=== PATIENT | female | born 1950 | race Caucasian/White ===

== ENCOUNTER 2017-12-30 17:12 | Emergency (ER) | payer MEDICARE, SELFPAY ==
[2017-12-30 17:13] VITALS: BP 168/84; PULSE 120; RESP 20; TEMP 37; O2SAT 99; BMI 25.7
[2017-12-30 18:01] LABS: Basophils % 0.4 % (0.1-2.0); Eosinophils # 0.4 K/mm3 (0.0-0.4); Eosinophils % 4.2 % (0.1-12.0); Hematocrit 34.8 % (37.0-47.0); Hemoglobin 10.6 g/dL (12.2-16.2); Lymphocytes # 2.9 K/mm3 (0.7-4.5); Mean Corpuscular HGB Conc 30.4 g/dL (31.8-35.4); Mean Corpuscular Volume 92.2 fl (81-99); Mean Platelet Volume 8.4 fl (7.4-10.4); Monocytes # 0.8 K/mm3 (0.1-1.0); Monocytes % 7.5 % (1.7-9.3); Neutrophils # 6.2 K/mm3 (1.8-7.8); Neutrophils % 59.8 % (37.0-80.0); Platelet Count 323 K/mm3 (142-424); Red Blood Count 3.78 M/mm3 (4.20-5.40); Red Cell Distribution Width 14.5 % (11.5-17.5); White Blood Count 10.4 K/mm3 (4.8-10.8)
[2017-12-30 18:02] LABS: Activated Partial Thrombo Time 23.9 seconds (23.6-34.0); INR 0.97 (0.9-1.1); Prothrombin Time 10.5 seconds (9.4-11.8)
[2017-12-30 18:13] VITALS: BP 149/80; PULSE 118; RESP 18; TEMP 36.9; O2SAT 98
[2017-12-30 18:44] LABS: Alanine Aminotransferase 44 U/L (12-78); Albumin Level 2.8 gm/dL (3.4-5.0); Albumin/Globulin Ratio 0.7 (1.1-1.8); Alkaline Phosphatase 236 U/L (46-116); Anion Gap 15.2 mEq/L (5-15); Aspartate Amino Transferase 39 U/L (15-37); Bilirubin,Total 0.4 mg/dL (0.2-1.0); Blood Urea Nitrogen 34 mg/dL (7-18); CKMB Relative Index 6.1 U/L (0-4.0); Calcium 8.7 mg/dL (8.5-10.1); Carbon Dioxide 23 mmol/L (21.0-32.0); Chloride 102 mmol/L (98-107); Creatine Kinase 367 U/L (26-192); Creatinine Clearance Estimated 46 mL/min (0-300); Creatinine,Serum 1.27 mg/dL (0.55-1.02); Estimated Glomerular Filt Rate 42 ml/min (>60); GFR (African American) 51 ML/MIN (>60); Globulin 3.9 gm/dl (1.3-3.2); Glucose 294 mg/dL (74-106); Potassium 4.2 mmoL/L (3.5-5.1); Sodium 136 mmol/L (136-145); Total Protein,Serum 6.7 gm/dL (6.4-8.2); Troponin I < 0.02 ng/ml (0.00-0.06)
[2017-12-30 18:45] LABS: Creatine Kinase MB 22.4 ng/ml (0.0-3.6)
[2017-12-30 19:18] VITALS: BP 166/78; PULSE 106; RESP 18; TEMP 37.1; O2SAT 99
--- NOTE | 2017-12-30 19:28 | HMH.EDARPALP ---
ED Disposition Clinical Impression: PSVT (paroxysmal supraventricular tachycardia), Dehydration Rhabdomyolysis Qualifiers: Rhabdomyolysis type: non-traumatic Qualified Code(s): M62.82 - Rhabdomyolysis Anemia Qualifiers: Anemia type: unspecified type Qualified Code(s): D64.9 - Anemia, unspecified Disposition: Home, Self-Care Condition on Discharge: Good Instructions: Paroxysmal Supraventricular Tachycardia, DI for Dehydration -- Adult Additional Instructions: Please follow-up with Dr. Gallagher or Dr. Cazares within the next 2 days. Please continue all your current medication at this time. Referrals: Davian Sawyer MD [Primary Care Provider] - Time of Disposition: 19:29 - Critical Care Critical Care Time: No Attestation: On 12/30/17, the high probability of a clinically significant, sudden or life threatening deterioration of the following system(s) required my full and direct attention, intervention and personal management. The time I documented below is in addition to time spent performing reported procedures but includes the following listed in this critical care notation. Medical Decision Making - Medical Records Medical records reviewed: Yes: I reviewed the patient's medical records. - Kiet Inquiry Pt receiving controlled substance: No Vital Signs: 12/30/17 17:13 12/30/17 18:13 12/30/17 19:18 Temperature 98.6 F 98.5 F 98.7 F Temperature Source Oral Oral Oral Pulse Rate Pulse Rate [Right Radial] 120 H 118 H 106 H Respiratory Rate 20 18 18 Blood Pressure Blood Pressure [Right Arm] 168/84 149/80 166/78 Blood Pressure Mean [Right Arm] 112 103 107 Blood Pressure Source [Right Arm] Manual Cuff/ Palpation Automatic Cuff Automatic Cuff Blood Pressure Position Blood Pressure Position [Right Arm] Sitting Supine Sitting 02 Sat by Pulse Oximetry 99 98 99 Oxygen Delivery Method Room Air Room Air Room Air 12/30/17 20:00 12/30/17 21:34 Temperature 98.1 F 98.7 F Temperature Source Oral Oral Pulse Rate 98 H Pulse Rate [Right Radial] 100 H Respiratory Rate 20 20 Blood Pressure 178/82 Blood Pressure [Right Arm] 179/89 Blood Pressure Mean [Right Arm] 119 Blood Pressure Source [Right Arm] Blood Pressure Position Sitting Blood Pressure Position [Right Arm] Sitting 02 Sat by Pulse Oximetry 99 Oxygen Delivery Method Room Air - Lab Data Lab results reviewed: Yes: I reviewed the patient's lab results. Lab Results 12/30/17 17:00: WBC 10.4, RBC 3.78 L, Hgb 10.6 L, Hct 34.8 L, MCV 92.2, MCH 28.0, MCHC 30.4 L, RDW 14.5, Plt Count 323, MPV 8.4, Neut % (Auto) 59.8, Lymph % (Auto) 28.0, [place] % (Auto) 7.5, Eos % (Auto) 4.2, Baso % (Auto) 0.4, Neut # (Auto) 6.2, Lymph # (Auto) 2.9, [place] # (Auto) 0.8, Eos # (Auto) 0.4, Baso # (Auto) 0.0 12/30/17 17:00: PT 10.5, INR 0.97, APTT 23.9 12/30/17 17:00: Sodium 136, Potassium 4.2, Chloride 102, Carbon Dioxide 23, Anion Gap 15.2 H, BUN 34 H, Creatinine 1.27 H, Estimated Creat Clear 46, Estimated GFR 42 L, Est GFR ( Amer) 51 L, Glucose 294 H, Calcium 8.7, Total Bilirubin 0.4, AST 39 H, ALT 44, Alkaline Phosphatase 236 H, Total Creatine Kinase 367 H, CK-MB (CK-2) 22.4 H*, CK-MB (CK-2) Rel Index 6.1 H, Troponin I < 0.02, Total Protein 6.7, Albumin 2.8 L, Globulin 3.9 H, Albumin/Globulin Ratio 0.7 L Result diagrams: 12/30/17 17:00 12/30/17 17:00 Orders (Tests/Meds): ED MEDICATIONS Discontinued Medications Generic Name Dose Route Start Last Admin Trade Name Freq PRN Reason Stop Dose Admin Sodium Chloride 1,000 mls @ 999 mls/hr 12/30/17 19:45 12/30/17 19:37 Sod Chlor 0.9% 1000ml Bag IV 12/30/17 20:45 999 mls/hr .Q1H1M SKYLAR Administration - Radiology Data #1 Image(s): Chest Image Reviewed: Yes I reviewed the patient's radiology results, Yes I reviewed the patient's radiology image, Yes I have reviewed radiologist's interpretation Preliminary Findings: Normal/NAD - ECG Data Tracing #1 I reviewed this ECG an
--- NOTE | 2017-12-30 19:59 | PC.NURSE ---
report to yaniv, receiving nurse at [facility] for transfer back to facility. [facility] made aware of transfer and will be arriving soon.
[2017-12-30 20:00] VITALS: BP 179/89; PULSE 100; RESP 20; TEMP 36.7; O2SAT 99
[2017-12-30 21:34] VITALS: BP 178/82; PULSE 98; RESP 20; TEMP 37.1; O2SAT 99
== END 2017-12-30 21:34 | disposition home or self-care (01) ==
PROVIDERS: Emergency Provider Emergency Medicine; PCP Internal Medicine Adolescent Medicine
DX: I47.1 Supraventricular tachycardia (principal); E86.0 Dehydration; M62.82 Rhabdomyolysis; D64.9 Anemia, unspecified; E11.65 Type 2 diabetes mellitus with hyperglycemia; Z79.4 Long term (current) use of insulin; Z79.84 Long term (current) use of oral hypoglycemic drugs; I10 Essential (primary) hypertension; Z79.899 Other long term (current) drug therapy
CPT/HCPCS: 80053; 82550; 82553; 84484; 85025; 85610; 85730; 93005; 96365; 99283

== ENCOUNTER → 2018-01-24 13:24 | Outpatient (CLI) | payer MEDICARE, SELFPAY ==
--- NOTE | 2018-01-24 13:28 | CA_ITS ---
PROCEDURE: 2-D M-mode and color Doppler study INDICATIONS FOR THE TEST: Chest pain COPD Heart Murmur Tobacco Smoking Palpitations Fatigue Syncope EdemaX HypertensionXDiabetes MellitusX Rheumatic Fever SOB LIPSCOMB Obesity HyperlipidemiaX Family History HD Additional History SVT PATIENT INFORMATION HEIGHT: 64 WEIGHT:148 GENDER: Female B/P:189/84 2-D/M-MODE INTERPRETATION: 2-D MEASUREMENTS OBSERVED VALUES IN CMS Right Ventricular Dimension (RVDd) 1.6 Interventricular Septum (Thickness)(IVsd) .7 Left Ventricular Internal Dimensions(LVIDd) 5.7 Left Ventricular Posterior Wall (Thickness)(LVPWd) .8 Aortic Root 2.5 Aortic Cusp Separation 1.6 Left Atrial Dimensions (LAD) 2.5 2D 1. Left atrium is qualitatively mildly enlarged, left ventricle is normal size, there is mild qualitative concentric left ventricular hypertrophy, visually estimated ejection fraction 55% with no obvious regional wall motion abnormality. 2. The right atrium and right ventricle are normal size and contractility. 3. The aortic valve is minimally thickened and fibrosed. 4. The mitral and tricuspid valve are grossly normal. 5. The pulmonic valve is poorly. 6. Trivial pericardial effusion noted. DOPPLER INTERROGATION: Doppler interrogation of the aortic, mitral and tricuspid valvular presence of mild mitral and tricuspid regurgitation, tricuspid and jet velocity insufficient for calculation of the right ventricular systolic pressure, grade 1 diastolic dysfunction seen with tissue Doppler evidence of raised left atrial pressure. CONCLUSION: 1. Mildly enlarged left atrium, normal left ventricular size, mild concentric left ventricular hypertrophy, visually estimated ejection fraction 55% with no obvious regional wall motion abnormality, grade 1 diastolic dysfunction seen with tissue Doppler evidence of raised left atrial pressure. 2. Mild mitral and tricuspid regurgitation 3. Trivial pericardial effusion noted.
== END ==
PROVIDERS: PCP Internal Medicine Adolescent Medicine; Visit Provider Internal Medicine
DX: I47.1 Supraventricular tachycardia (principal)
CPT/HCPCS: 93306

== ENCOUNTER 2018-04-18 14:00 | Outpatient (RCR) | payer MEDICARE, SELFPAY | END 2018-04-18 14:01 | disposition home or self-care (01) | LOC: PT 14:00 | PROVIDERS: PCP Internal Medicine Adolescent Medicine; Visit Provider Internal Medicine Adolescent Medicine | DX: S72.90XA Unspecified fracture of unspecified femur, initial encounter for closed fracture (principal); S82.143A Displaced bicondylar fracture of unspecified tibia, initial encounter for closed fracture | CPT/HCPCS: 97010; 97014; 97110; 97116; 97140; 97163; 97164; G0283 ==

== ENCOUNTER → 2018-06-05 07:53 | Outpatient (CLI) | payer MEDICARE, SELFPAY ==
--- NOTE | 2018-06-05 07:55 | AS_ITS ---
Renal Arterial Duplex Indications: 405.91 Unspecified renovascular hypertension. IMPRESSIONS 1. The right renal artery appears normal. 2. The left renal artery appears normal. Complete renal arterial duplex. Duplex scan and Doppler flow study including spectral analysis, color and james scale imaging. Height: Height: 162.6cm. Height: 64in. Weight: Weight: 64kg. Weight: 140.7lb. Body mass index: BMI: 24.2kg/m^2. Body surface area: BSA: 1.71m^2. Location: Vascular laboratory. Patient status: Outpatient. Tables: Arterial flow: + +-------+--------+---------+ Location V sys V ed Resistive + +-------+--------+---------+ Right renal - proximal 103cm/s 27.1cm/s --------- + +-------+--------+---------+ Right renal - mid 124cm/s 28.3cm/s --------- + +-------+--------+---------+ Right renal - distal 130cm/s 21.2cm/s --------- + +-------+--------+---------+ Left renal - proximal 100cm/s 18.9cm/s --------- + +-------+--------+---------+ Left renal - mid 118cm/s 21.2cm/s --------- + +-------+--------+---------+ Left renal - distal 143cm/s 15.3cm/s --------- + +-------+--------+---------+ Right renal - origin 122cm/s 20cm/s 0.84 + +-------+--------+---------+ Left renal - Origin 107cm/s 21cm/s 0.80 + +-------+--------+---------+ Aorta 98cm/s 18cm/s 0.82 + +-------+--------+---------+ Aorta - distal 79cm/s 10cm/s 0.87 + +-------+--------+---------+ Artery mapping: + +--------+-------+ + Location Diameter Patency Observations + +--------+-------+ + Abdominal aorta - mid 1.9mm Patent Calcification + +--------+-------+ + Renal anatomy: + +-----+-----+ Left Right + +-----+-----+ Long axis 7.5cm 9.4cm + +-----+-----+ Short axis 3.5cm 4.1cm + +-----+-----+ Velocity ratios: + +-----+ V sys + +-----+ Right renal/aortic 1.6 + +-----+ Left renal/aortic 1.8 + +-----+ (Report amended ) Electronically signed by: Nik Brown [id number]
== END ==
PROVIDERS: PCP Internal Medicine Adolescent Medicine; Visit Provider Internal Medicine
DX: I10 Essential (primary) hypertension (principal); R00.0 Tachycardia, unspecified
CPT/HCPCS: 93976

== ENCOUNTER 2020-07-17 17:41 | Emergency (ER) | payer MEDICARE, SELFPAY ==
[2020-07-17 17:51] VITALS: BP 142/61; PULSE 76; RESP 16; TEMP 36.6; O2SAT 98; BMI 24.9
--- NOTE | 2020-07-17 18:00 | XR_ITS ---
PROCEDURE: CR XR FOREARM RT 2V-from 07/17/2020 CR XR ELBOW RT MIN 3V-from 07/17/2020 Referring Doctor: Gary Orozco Patient Age:69Y CLINICAL INDICATION: FALL right elbow pain swelling. . Pain right forearm as well COMPARISON: CR XR ELBOW RT MIN 3V from 07/17/2020 FINDINGS: RIGHT ELBOW 3-view AP lateral oblique: . Nondisplaced supracondylar fracture distal humerus, at right elbow. Fracture line evident with mild distraction of the dorsal cortex on the lateral view. Subtle fracture line at the medial and lateral epicondyle on the frontal projection also evident Elbow joint effusion clearly evident-with prominent elevation of the anterior fat pad most notable.. Less evident elevation posterior fat pad as well. The radial head is intact. The elbow joint space well maintained. Mild sharpening at the medial margin and coronary process of the proximal ulna reflecting scant degenerative change.. There is some mild spur and osseous prominence extending from the lateral epicondyle which could reflect old lateral epicondylitis. Diffuse demineralization [id number] Diffuse soft tissue swelling about the elbow-involves the subcutaneous tissues particularly at medial and posterior elbow. Faint atherosclerotic calcification arteries anteriorly at arm. RIGHT FOREARM-2 VIEW AP AND LATERAL: The remainder of the shaft of right radius and ulna appear intact with no fractures elsewhere. Is demineralization forearm with a slightly permeative appearance to radius and ulna I which I suspect reflects patient's osteopenia and demineralization This forearm study in includes the the right wrist.. Developing degenerative changes at wrist with slight narrowing at the radiocarpal joint noted.. If pain at wrist a detailed study of this area would be warranted The lateral view of the forearm includes elbow diffuse swelling about about the elbow. The supracondylar fracture and joint effusion at elbow again noted IMPRESSION: Nondisplaced acute supracondylar fracture distal humerus . Associated joint effusion at elbow. Diffuse demineralization. Dictated by: Piero Worthington MD 07/17/2020 21:38 Piero Worthington MD in [place] 07/17/2020 21:38
[2020-07-17 18:05] VITALS: BP 142/61; PULSE 76; RESP 16; TEMP 36.7; O2SAT 98; BMI 11.2
--- NOTE | 2020-07-17 19:21 | HMH.EDUTC ---
[facility] [place] Disposition Clinical Impression: Elbow fracture, right Qualifiers: Encounter type: initial encounter Fracture type: closed Qualified Code(s): S42.401A - Unspecified fracture of lower end of right humerus, initial encounter for closed fracture Disposition: Home, Self-Care Condition on Discharge: Good Instructions: Elbow Fracture, DI for Elbow Fracture, How to Take Care of Your Splint Additional Instructions: Rest the extremity, apply ice for 15 minutes as tolerated three or four times per day, Elevate the extremity as tolerated while you are resting. Take ibuprofen for pain. Follow up with Dr. Polanco. Call her office in the morning around 8:30 am. Follow up with your regular doctor. GO TO THE ER FOR ANY WORSENING SYMPTOMS Referrals: Davian Sawyer MD [Primary Care Provider] - Krystyna Polanco MD [Physician] - Time of Disposition: 19:27 Medical Decision Making - Medical Records Medical records reviewed: No: I reviewed the patient's medical records. - Kiet Inquiry Pt receiving controlled substance: No Vital Signs: 07/17/20 17:51 07/17/20 18:05 Temperature 98 F 98.0 F Temperature Source Oral Oral Pulse Rate [Radial] 76 76 Respiratory Rate 16 16 Blood Pressure [Right Radial Artery] 142/61 H 142/61 H Blood Pressure Mean [Right Radial Artery] 88 88 Blood Pressure Source [Right Radial Artery] Automatic Cuff Blood Pressure Position [Right Radial Artery] Sitting Sitting 02 Sat by Pulse Oximetry 98 98 Oxygen Delivery Method Room Air Room Air Orders (Tests/Meds): ORDERS Category Date Time Status XR elbow RT min 3V Stat Exams 07/17/20 18:00 Taken XR forearm RT 2V Stat Exams 07/17/20 18:00 Taken [facility] HPI - General Stated complaint: AO injured R elbow on chair Time Seen by Provider: 07/17/20 18:21 Mode of Arrival: Ambulatory Source of Information: Patient Limitations: No Limitations Description of Symptoms (Recalled from Triage Doc. by RN): PATIENT C/O RIGHT ELBOW PAIN. STATES SHE TRIPPED OVER HER LIFT CHAIR TODAY AND FELL INTO IT ON HER RIGHT ARM HEENT Symptoms (Recalled from RN notes): No Resp Symptoms (Recalled from RN notes): No Skin Symptoms (Recalled from RN notes): No MS Symptoms (Recalled from RN notes): Yes Functional Status (Recalled from RN notes): WNL - History of Present Illness Provider Complaint: She states that she was walking thru her living room when she tripped over the foot support on her lift chair. She came down onto the chair with her left elbow bearing most of her weight. This happened yesterday. Since then she has had right elbow pain. - Related Data Home Medications Medication Instructions Recorded Confirmed Aspirin [Aspirin 81mg chewable 81 mg PO DAILY 12/30/17 06/20/20 tab] Cholecalciferol (Vitamin D3) 1,000 unit PO DAILY 12/30/17 06/20/20 [Vitamin D3 1,000 Unit Cap] Ferrous Sulfate 325 mg PO DAILY 12/30/17 06/20/20 Insulin Lispro [Humalog Kwikpen 5 unit SQ AC 12/30/17 06/20/20 U-100] bisoprolol fumarate 10 mg tablet 10 mg PO DAILY tab 02/04/18 06/20/20 dilTIAZem HCL [Cardizem Cd] 120 mg PO DAILY 03/03/18 06/20/20 atorvastatin 40 mg tablet 40 mg PO ONCE 05/13/18 06/20/20 escitalopram oxalate 10 mg tablet 10 mg PO ONCE 05/13/18 06/20/20 lisinopril 40 mg tablet 40 mg PO BID tab 05/27/18 06/20/20 metformin 500 mg tablet 1,000 mg PO BID tab 12/09/18 06/20/20 sitagliptin 100 mg tablet 100 mg PO DAILY 12/09/18 06/20/20 insulin glargine 100 unit/mL 10 unit SQ HS ml 12/08/19 06/20/20 subcutaneous solution Previous Rx's Medication Instructions Recorded doxazosin 4 mg tablet 4 mg PO QHS #30 tab 05/19/19 hydrochlorothiazide 50 mg tablet 50 mg PO QAM #30 tab 05/19/19 Allergies Allergy/AdvReac Type Severity Reaction Status Date / Time Penicillins Allergy Verified 06/20/20 11:55 Sulfa (Sulfonamide Allergy Verified 06/20/20 11:55 Antibiotics) - Worker's Comp Is this a Worker's Comp case?: No [facility] Histo
[2020-07-17 19:28] VITALS: BP 142/61; PULSE 76; RESP 16; TEMP 36.7; O2SAT 98
== END 2020-07-17 19:30 | disposition home or self-care (01) ==
PROVIDERS: Emergency Provider Nurse Practitioner Family; PCP Internal Medicine Adolescent Medicine
DX: S42.401A Unspecified fracture of lower end of right humerus, initial encounter for closed fracture (principal); W01.0XXA Fall on same level from slipping, tripping and stumbling without subsequent striking against object, initial encounter; Y92.019 Unspecified place in single-family (private) house as the place of occurrence of the external cause; I10 Essential (primary) hypertension; E78.5 Hyperlipidemia, unspecified; E11.9 Type 2 diabetes mellitus without complications; I25.2 Old myocardial infarction; Z79.4 Long term (current) use of insulin; I47.1 Supraventricular tachycardia; Z88.0 Allergy status to penicillin; Z88.2 Allergy status to sulfonamides
CPT/HCPCS: 29105; G0463; 73080; 73090; 99203

== ENCOUNTER → 2020-08-12 12:45 | Outpatient (CLI) | payer MEDICARE, SELFPAY ==
--- NOTE | 2020-08-12 12:52 | XR_ITS ---
PROCEDURE: XR ELBOW RT MIN 3V CLINICAL INDICATION: elbow FX FU COMPARISON: CR XR ELBOW RT MIN 3V from 07/17/2020 FINDINGS: Nondisplaced supracondylar fracture once again noted. There is some sclerosis at the fracture line suggesting some healing. Fracture line remains visible posteriorly. Soft tissue swelling has shown some improvement as has a displaced anterior fat pad. IMPRESSION: Healing supracondylar fracture with good alignment Dictated by: Nik Brown MD 08/12/2020 13:56 Nik Brown MD in [facility] 08/12/2020 13:56
== END ==
PROVIDERS: PCP Internal Medicine Adolescent Medicine; Visit Provider Orthopaedic Surgery
DX: S42.401A Unspecified fracture of lower end of right humerus, initial encounter for closed fracture (principal)
CPT/HCPCS: 73080

== ENCOUNTER → 2020-08-29 09:21 | Outpatient (CLI) | payer MEDICARE, SELFPAY ==
--- NOTE | 2020-08-29 09:25 | XR_ITS ---
PROCEDURE: XR ELBOW RT MIN 3V CLINICAL INDICATION: non-displaced supracondylar fracture R humerus, follow-up COMPARISON: CR XR ELBOW RT MIN 3V from 07/17/2020 CR XR ELBOW RT MIN 3V from 08/12/2020 FINDINGS: Transcondylar fracture once again noted. Fracture is nondisplaced and not significantly changed. Remains a positive anterior fat pad. There is generalized osteopenia and generalized vascular calcifications. Mild osteoarthritic change. Other findings:None. IMPRESSION: No change nondisplaced transcondylar Dictated by: Nik Brown MD 08/29/2020 10:07 Nik Brown MD in [facility] 08/29/2020 10:07
== END ==
PROVIDERS: PCP Internal Medicine Adolescent Medicine; Visit Provider Orthopaedic Surgery
DX: S42.401A Unspecified fracture of lower end of right humerus, initial encounter for closed fracture (principal); S42.413A Displaced simple supracondylar fracture without intercondylar fracture of unspecified humerus, initial encounter for closed fracture
CPT/HCPCS: 73080

== ENCOUNTER → 2020-09-27 08:26 | Outpatient (CLI) | payer MEDICARE, SELFPAY ==
--- NOTE | 2020-09-27 08:33 | XR_ITS ---
PROCEDURE: XR ELBOW RT MIN 3V CLINICAL INDICATION: non-displaced supracondylar fracture R distal basim Follow-up fracture COMPARISON: CR XR ELBOW RT MIN 3V from 07/17/2020 CR XR ELBOW RT MIN 3V from 08/12/2020 CR XR ELBOW RT MIN 3V from 08/29/2020 FINDINGS: Healing supracondylar fracture noted with good alignment. Osteoarthritic changes Other findings:Vascular calcification IMPRESSION: Healing supracondylar fracture Dictated by: Nik Brown MD 09/27/2020 16:38 Nik Brown MD in [place] 09/27/2020 16:38
== END ==
PROVIDERS: PCP Internal Medicine Adolescent Medicine; Visit Provider Orthopaedic Surgery
DX: S42.413A Displaced simple supracondylar fracture without intercondylar fracture of unspecified humerus, initial encounter for closed fracture (principal)
CPT/HCPCS: 73080

== ENCOUNTER 2020-10-13 14:00 | Outpatient (RCR) | payer MEDICARE, SELFPAY ==
--- NOTE | 2020-09-08 13:51 | HMH.OTOPEV ---
OT Inpatient Evaluation Rehab OT Outpatient Eval Start: 09/08/20 13:38 Freq: Status: Active Protocol: Document 09/08/20 13:38 [id number] (Rec: 09/08/20 13:51 [id number] Electronically Signed By Juliette Mccrary OT 09/08/20 13:38 Outpatient Therapy Subjective History Subjective History Pt is a 69 year old female who reports to therapy for initial evaluation to right elbow. Pt reports ~6 weeks ago she fell while getting up from her lift chair resulting in a right elbow fx. Pt was casted twice. Pt does demonstrate with decreased AROM and strength at right elbow. Pt will continue to be seen twice a week in order to address deficits. Chief Complaint Pain,Stiff,Weakness Symptom Type Ache,Throb,Sharp Symptoms Relieved By Rest/Positioning Symptoms Aggravated By Physical Activity,Lifting Prior Functional Limitations None Current Functional Limitations Reaching,Lifting,Housework, Driving,Recreation Activity Symptom Description Intermittent,Activity Dependent Level of pain today (0-10) 4 Pain scale - at its best (0-10) 2 Pain scale - at its worst (0-10) 10 Shoulder/Elbow Eval Shoulder Objective Measurements Elbow Objective Measurements Elbow ROM Right Elbow Extension Active Range of Motion ( -55 degrees degrees) Elbow Flexion Active Range of Motion ( 120 degrees degrees) Elbow Pronation of Forearm Range of 60 degrees Motion (degrees) Elbow Supination of Forearm Range of 80 degrees Motion (degrees) Elbow MMT Elbow Flexion Strength Grade 3- Fair- Elbow Extension Strength Grade 3- Fair- OT Outpatient Assessment Impairments Problems/Impairments Palpation Tenderness,Impaired Range of Motion,Impaired Strength,Impaired Endurance, Impaired Lifting,Impaired Shower/Bathing,Impaired Household Care,Impaired Recreational Activities, Subjective C/O Pain,Impaired Self Care/Self Management Prognosis Rehab Potential Good Clinical Impression Consistent with Diagnosis Yes Short Term Goals Number of Weeks 3 Increase Range of Motion Yes: WFL
== END 2020-10-13 14:05 | disposition home or self-care (01) ==
LOC: OT 14:00
PROVIDERS: PCP Internal Medicine Adolescent Medicine; Visit Provider Orthopaedic Surgery
DX: S42.411D Displaced simple supracondylar fracture without intercondylar fracture of right humerus, subsequent encounter for fracture with routine healing (principal)
CPT/HCPCS: 97014; 97110; 97140; 97165; G0283

== ENCOUNTER → 2020-10-31 12:09 | Outpatient (CLI) | payer MEDICARE, SELFPAY ==
[2020-10-31 12:27] LABS: Basophils % 0.4 % (0.1-2.0); Eosinophils # 0.2 K/mm3 (0.0-0.4); Eosinophils % 1.8 % (0.1-12.0); Hemoglobin 11.4 g/dL (12.2-16.2); Lymphocytes # 2.2 K/mm3 (0.7-4.5); Lymphocytes % 22.4 % (10-50); Mean Corpuscular HGB Conc 31.7 g/dL (31.8-35.4); Mean Corpuscular Hemoglobin 28.5 pg (27.0-31.2); Monocytes # 0.6 K/mm3 (0.1-1.0); Monocytes % 6.4 % (1.7-9.3); Neutrophils # 6.8 K/mm3 (1.8-7.8); Platelet Count 246 K/mm3 (142-424); Red Blood Count 4.01 M/mm3 (4.20-5.40); Red Cell Distribution Width 15.1 % (11.5-17.5); White Blood Count 9.8 K/mm3 (4.8-10.8)
[2020-10-31 13:03] LABS: Chloride 109 mmol/L (98-107); Sodium 142 mmol/L (136-145)
[2020-10-31 13:04] LABS: Hemoglobin A1C 6.9 % (4.0-6.0)
[2020-10-31 13:05] LABS: Blood Urea Nitrogen 24 mg/dl (7-17); Estimated Glomerular Filt Rate 49 ml/min (>60); GFR (African American) 59 ML/MIN (>60)
[2020-10-31 13:06] LABS: Alanine Aminotransferase 28 U/L (12-78); Albumin Level 3.6 g/dl (3.5-5.0); Albumin/Globulin Ratio 1.2 (1.1-1.8); Alkaline Phosphatase 79 U/L (38-126); Aspartate Amino Transferase 37 U/L (14-36); Bilirubin,Total 0.5 mg/dl (0.2-1.3); Calcium 9.3 mg/dl (8.4-10.2); Carbon Dioxide 26 mmol/L (22.0-30.0); Globulin 2.9 g/dL (1.3-3.2); Glucose 76 mg/dl (74-100); Total Protein,Serum 6.5 g/dl (6.3-8.2)
== END ==
PROVIDERS: Visit Provider Internal Medicine Adolescent Medicine
DX: E11.9 Type 2 diabetes mellitus without complications (principal); D63.8 Anemia in other chronic diseases classified elsewhere; Z79.4 Long term (current) use of insulin
CPT/HCPCS: 36415; 80053; 83036; 85025

== ENCOUNTER → 2020-11-14 12:37 | Outpatient (CLI) | payer MEDICARE, SELFPAY ==
--- NOTE | 2020-11-14 12:42 | XR_ITS ---
PROCEDURE: XR DEXA AXIAL SKELETON CLINICAL HISTORY: POST MENOPAUSAL COMPARISON: No exams were available for comparison FINDINGS: The right hip BMD is 0.597 with a T-score of -2.3. The left forearm BMD is 0.587 with a T-score of -1.8. The lumbar spine BMD is 0.850 with a T-score of -1.8. IMPRESSION: This patient is considered osteopenic according to the World Health Organization criteria. Bone density is between 10 and 25 percent below young normal. Fracture risk is moderate. Treatment is advised. Based on these results a follow-up exam is recommended in 2 year. Dictated by: Nik Brown MD 11/15/2020 04:40 Nik Brown MD in [place] 11/15/2020 06:56
== END ==
PROVIDERS: PCP Internal Medicine Adolescent Medicine; Visit Provider Internal Medicine Adolescent Medicine
DX: N18.31 Chronic kidney disease, stage 3a (principal); M85.89 Other specified disorders of bone density and structure, multiple sites
CPT/HCPCS: 77080

== ENCOUNTER 2021-05-05 20:52 | Emergency (ER) | payer MEDICARE, SELFPAY ==
[2021-05-05 20:53] VITALS: BP 183/94; PULSE 63; RESP 18; TEMP 36.7; O2SAT 99; BMI 25.4
--- NOTE | 2021-05-05 21:05 | HMH.EDGENADL ---
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 Found to have a urinary tract infection. Elevated glucose could also be due to recent immunization. Also may be due to increased carbohydrate or sugar intake. Please continue using long-acting insulin as night as prescribed. Follow-up closely with your primary care doctor. Return to the emergency department for any new or worsening symptoms. Prescriptions: cephALEXin [cephALEXin 500mg capsule*] 500 mg PO BID 10 Days #20 cap Transmission Status: Pending to [id number] Referrals: Davian Sawyer MD [Primary Care Provider] - Time of Disposition: 22:17 - Critical Care Critical Care Time: No Attestation: On 05/05/21, the high probability of a clinically significant, sudden or life threatening deterioration of the following system(s) required my full and direct attention, intervention and personal management. The time I documented below is in addition to time spent performing reported procedures but includes the following listed in this critical care notation. Medical Decision Making - Medical Records Medical records reviewed: Yes: I reviewed the patient's medical records. - Kiet Inquiry Pt receiving controlled substance: No Vital Signs: 05/05/21 20:53 Temperature 98.1 F Temperature Source Oral Pulse Rate [Right] 63 Respiratory Rate 18 Blood Pressure [Right Arm] 183/94 H Blood Pressure Mean [Right Arm] 123 02 Sat by Pulse Oximetry 99 - Lab Data Lab Results 05/05/21 21:03: POC Glucose 379 H* 05/05/21 21:10: WBC 6.8, RBC 3.99 L, Hgb 11.7 L, Hct 35.3 L, MCV 88.6, MCH 29.2, MCHC 33.0, RDW 14.6, Plt Count 192, MPV 8.3, Neut % (Auto) 51.6, Lymph % (Auto) 37.7, Bennett % (Auto) 6.1, Eos % (Auto) 3.9, Baso % (Auto) 0.7, Neut # (Auto) 3.5, Lymph # (Auto) 2.6, Bennett # (Auto) 0.4, Eos # (Auto) 0.3, Baso # (Auto) 0.1 05/05/21 21:10: Sodium 135 L, Potassium 4.4, Chloride 103, Carbon Dioxide 24, Anion Gap 12.4, BUN 38 H, Creatinine 1.00, Estimated Creat Clear 55, Estimated GFR 55 L, Est GFR ( Amer) 66, Glucose 381 H, Calcium 8.6, Total Bilirubin 0.6, AST 35, ALT 35, Alkaline Phosphatase 146 H, Total Protein 6.9, Albumin 3.8, Globulin 3.1, Albumin/Globulin Ratio 1.2, Lipase 211, Acetone Level None detected 05/05/21 21:10: Hemoglobin A1c 8.3 H 05/05/21 22:25: Urine Color Yellow, Urine Appearance Clear, Urine pH 6.0, Ur Specific [place] 1.015, Urine Protein Negative, Urine Glucose (UA) 3+, Urine Ketones Trace, Urine Blood Negative, Urine Nitrate Positive, Urine Bilirubin Negative, Urine Urobilinogen 0.2, Ur Leukocyte Esterase Trace, Urine WBC 3-5, Ur Squamous Epith Cells 3-5, Urine Bacteria 4+ 05/05/21 : VBG pH 7.41, VBG pCO2 36.0, VBG pO2 88.3 H, VBG HCO3 22.3 L, VBG Total CO2 23.4, VBG O2 Saturation 97.0 H, VBG Base Excess -2.4 Result diagrams: 05/05/21 21:10 05/05/21 21:10 Orders (Tests/Meds): ORDERS Category Date Time Status Urine Culture Stat Micro 05/05/21 22:25 Received Venous Blood Gas Stat RT 05/05/21 21:04 Ordered Medical Decision Narrative: In summary this is a 70-year-old female with history of insulin-dependent diabetes presenting to the emergency department with elevated blood glucose. Patient clinically stable on arrival. Vital signs within no
[2021-05-05 21:10] LABS: POC Glucose,Bedside 379 (70-110)
[2021-05-05 21:16] LABS: Basophils # 0.1 K/mm3 (0-0.2); Basophils % 0.7 % (0.1-2.0); Eosinophils # 0.3 K/mm3 (0.0-0.4); Eosinophils % 3.9 % (0.1-12.0); Hematocrit 35.3 % (37.0-47.0); Hemoglobin 11.7 g/dL (12.2-16.2); Lymphocytes # 2.6 K/mm3 (0.7-4.5); Lymphocytes % 37.7 % (10-50); Mean Corpuscular Hemoglobin 29.2 pg (27.0-31.2); Mean Corpuscular Volume 88.6 fl (81-99); Mean Platelet Volume 8.3 fl (7.4-10.4); Monocytes # 0.4 K/mm3 (0.1-1.0); Monocytes % 6.1 % (1.7-9.3); Neutrophils # 3.5 K/mm3 (1.8-7.8); Neutrophils % 51.6 % (37.0-80.0); Platelet Count 192 K/mm3 (142-424); Red Blood Count 3.99 M/mm3 (4.20-5.40); Red Cell Distribution Width 14.6 % (11.5-17.5); White Blood Count 6.8 K/mm3 (4.8-10.8)
[2021-05-05 21:24] LABS: Alanine Aminotransferase 35 U/L (12-78); Albumin Level 3.8 g/dl (3.5-5.0); Albumin/Globulin Ratio 1.2 (1.1-1.8); Alkaline Phosphatase 146 U/L (38-126); Anion Gap 12.4 mEq/L (5-15); Aspartate Amino Transferase 35 U/L (14-36); Bilirubin,Total 0.6 mg/dl (0.2-1.3); Blood Urea Nitrogen 38 mg/dl (7-17); Calcium 8.6 mg/dl (8.4-10.2); Carbon Dioxide 24 mmol/L (22.0-30.0); Chloride 103 mmol/L (98-107); Creatinine Clearance Estimated 55 mL/min (50-200); Estimated Glomerular Filt Rate 55 ml/min (>60); GFR (African American) 66 ML/MIN (>60); Globulin 3.1 g/dL (1.3-3.2); Glucose 381 mg/dl (74-100); Lipase 211 U/L (23-300); Potassium 4.4 mmoL/L (3.5-5.1); Sodium 135 mmol/L (136-145); Total Protein,Serum 6.9 g/dl (6.3-8.2)
[2021-05-05 21:25] LABS: VBG Base Excess -2.4 mmol/L (-2.4-2.3); VBG HCO3 22.3 mmol/L (23-30); VBG PH 7.41 mmol/L (7.31-7.41); VBG PO2 88.3 mmol/L (28-40); VBG Total CO2 23.4 mmol/L (23-27)
[2021-05-05 21:27] LABS: Acetone, Serum (Rapid) None Detected (None Detect)
[2021-05-05 21:29] LABS: Hemoglobin A1C 8.3 % (4.0-6.0)
[2021-05-05 22:27] LABS: Appearance,Urine CLEAR (Clear); Bilirubin,Urine Negative (Negative); Blood, Urine Negative (Negative); Color,Urine YELLOW (Yellow); Glucose,Urine (UA) 3+ (Negative); Ketones,Urine TRACE (Negative); Leukocyte Esterase,Urine TRACE (Negative); Microscopic, Urine URINE MICROSCOPIC (MICROSCOPIC); Nitrate,Urine POSITIVE (Negative); Protein,Urine Negative (Negative); Specific Gravity, Urine 1.015 (1.005-1.030); Urobilinogen,Urine 0.2 EU/dl (0.2)
[2021-05-05 22:32] LABS: Bacteria,Urine 4+ /lpf
[2021-05-05 23:12] VITALS: BP 161/72; PULSE 61; RESP 18; TEMP 36.7; O2SAT 99
== END 2021-05-05 23:14 | disposition home or self-care (01) ==
PROVIDERS: Emergency Provider Emergency Medicine; PCP Internal Medicine Adolescent Medicine
DX: N30.00 Acute cystitis without hematuria (principal); E11.65 Type 2 diabetes mellitus with hyperglycemia; I25.10 Atherosclerotic heart disease of native coronary artery without angina pectoris; E78.5 Hyperlipidemia, unspecified; I10 Essential (primary) hypertension; I25.2 Old myocardial infarction; Z79.4 Long term (current) use of insulin; Z88.0 Allergy status to penicillin; Z88.2 Allergy status to sulfonamides; Z79.899 Other long term (current) drug therapy
CPT/HCPCS: 80053; 81001; 82009; 82803; 82962; 83036; 83690; 85025; 87086; 87088; 87186; 99282

== ENCOUNTER → 2021-07-10 15:03 | Outpatient (CLI) | payer MEDICARE, SELFPAY ==
[2021-07-10 16:03] LABS: Anion Gap 11.7 mEq/L (5-15); Blood Urea Nitrogen 43 mg/dl (7-17); Calcium 8.9 mg/dl (8.4-10.2); Carbon Dioxide 24 mmol/L (22.0-30.0); Chloride 104 mmol/L (98-107); Estimated Glomerular Filt Rate 62 ml/min (>60); GFR (African American) 75 ML/MIN (>60); Potassium 4.7 mmoL/L (3.5-5.1); Sodium 135 mmol/L (136-145)
[2021-07-10 16:37] LABS: Hemoglobin A1C 10.7 % (4.0-6.0)
[2021-07-10 18:22] LABS: Glucose 425 mg/dl (74-100)
== END ==
PROVIDERS: Visit Provider Internal Medicine Adolescent Medicine
DX: E11.9 Type 2 diabetes mellitus without complications (principal); Z79.4 Long term (current) use of insulin
CPT/HCPCS: 36415; 80048; 83036

== ENCOUNTER 2021-07-13 03:12 | Emergency (ER) | payer MEDICARE, SELFPAY ==
[2021-07-13] VITALS (7 sets, daily range): BP systolic 100–120; BP diastolic 48–59; PULSE 70–77; RESP 17–20; TEMP 36.6–36.7; O2SAT 95–100; BMI 27.3
--- NOTE | 2021-07-13 03:00 | ECG_ITS ---
APPROVED REPORT Exam: Resting ECG HR:75 bpm ECG Measurements Heart Rate 75 AXES ND 138 P 61 QRSd 74 QRS 20 QT 402 T 30 QTc 448 Conclusion Normal sinus rhythm Normal ECG Electronically signed by : Davian Sawyer MD 07/13/2021 17:48:27
[2021-07-13 03:18] LABS: POC Glucose,Bedside 349 (70-110)
--- NOTE | 2021-07-13 03:33 | XR_ITS ---
PROCEDURE INFORMATION: Exam: XR Chest Exam date and time: 07/13/2021 3:33 AM Age: 70 years old Clinical indication: Pain; Angina pectoris; Additional info: Cp TECHNIQUE: Imaging protocol: XR of the chest. Views: 2 views. COMPARISON: No relevant prior studies available. FINDINGS: Lungs: Chronic interstitial changes identified within both lung cueto. There may be areas of scarring or atelectasis at the left lung base. No consolidation. Pleural spaces: Unremarkable. No pleural effusion. No pneumothorax. Heart/Mediastinum: Unremarkable. No cardiomegaly. Bones/joints: Old healed fractures along the posterolateral aspects of the right 7th through 9th ribs. IMPRESSION: No acute findings.
--- NOTE | 2021-07-13 03:37 | HMH.EDCP ---
ED Disposition Clinical Impression: Renal insufficiency Chest pain Qualifiers: Chest pain type: precordial pain Qualified Code(s): R07.2 - Precordial pain Diabetes mellitus Qualifiers: Diabetes mellitus type: type 2 Diabetes mellitus detention insulin use: unspecified detention insulin use status Diabetes mellitus complication status: with other specified complication Qualified Code(s): E11.69 - Type 2 diabetes mellitus with other specified complication Disposition: Home, Self-Care Condition on Discharge: Fair Instructions: DI for Atypical Chest Pain Additional Instructions: resume orders and see pcp for follow up Referrals: Davian Sawyer MD [Primary Care Provider] - - Critical Care Critical Care Time: No Attestation: On 07/13/21, the high probability of a clinically significant, sudden or life threatening deterioration of the following system(s) required my full and direct attention, intervention and personal management. The time I documented below is in addition to time spent performing reported procedures but includes the following listed in this critical care notation. Medical Decision Making - Medical Records Medical records reviewed: Yes: I reviewed the patient's medical records. - Kiet Inquiry Pt receiving controlled substance: No Vital Signs: 07/13/21 03:05 07/13/21 04:15 07/13/21 05:15 Temperature 97.9 F Temperature Source Oral Pulse Rate 77 74 Pulse Rate [Right] 76 Respiratory Rate 19 20 19 Blood Pressure 106/51 L 100/48 L Blood Pressure [Right Arm] 112/55 L Blood Pressure Mean [Right Arm] 74 Blood Pressure Source [Right Arm] Automatic Cuff 02 Sat by Pulse Oximetry 100 96 95 Oxygen Delivery Method Nasal Cannula Oxygen Flow Rate (LPM) 2 07/13/21 05:30 07/13/21 06:00 07/13/21 06:25 Temperature Temperature Source Pulse Rate 74 74 Pulse Rate [Right] Respiratory Rate 18 18 Blood Pressure 113/57 L 117/59 L Blood Pressure [Right Arm] Blood Pressure Mean [Right Arm] Blood Pressure Source [Right Arm] 02 Sat by Pulse Oximetry 95 97 Oxygen Delivery Method Room Air Oxygen Flow Rate (LPM) - Lab Data Lab results reviewed: Yes: I reviewed the patient's lab results. Lab Results 07/13/21 03:06: POC Glucose 349 H* 07/13/21 03:20: WBC 13.4 H, RBC 4.01 L, Hgb 12.0 L, Hct 37.1, MCV 92.4, MCH 29.9, MCHC 32.3, RDW 14.4, Plt Count 277, MPV 8.7, Neut % (Auto) 80.2 H, Lymph % (Auto) 12.5, Real % (Auto) 6.2, Eos % (Auto) 0.8, Baso % (Auto) 0.3, Neut # (Auto) 10.7 H, Lymph # (Auto) 1.7, Real # (Auto) 0.8, Eos # (Auto) 0.1, Baso # (Auto) 0.1 07/13/21 03:20: Sodium 133 L, Potassium 4.5, Chloride 100, Carbon Dioxide 25, Anion Gap 12.5, BUN 48 H, Creatinine 1.30 H D, Estimated Creat Clear 51, Estimated GFR 40 L, Est GFR ( Amer) 49 L D, Glucose 333 H, Calcium 8.4, Troponin I 0.02, C-Reactive Protein 155.8 H, NT-Pro-B Natriuret Pep 1980 H 07/13/21 03:20: ESR 62 H 07/13/21 03:20: Magnesium 1.8, Procalcitonin 0.269 07/13/21 03:20: Total Bilirubin 0.5, Direct Bilirubin 0.2, Conjugated Bilirubin 0.0, Indirect Bilirubin 0.3, Unconjugated Bilirubin 0.4, AST 21, ALT 22, Alkaline Phosphatase 120, Total Protein 5.8 L, Albumin 3.0 L 07/13/21 04:03: Urine Color Yellow, Urine Appearance Cloudy, Urine pH 5.5, Ur Specific [place] 1.020, Urine Protein Negative, Urine Glucose (UA) 3+, Urine Ketones Negative, Urine Blood Negative, Urine Nitrate Negative, Urine Bilirubin Negative, Urine Urobilinogen 0.2, Ur Leukocyte Esterase Trace, Urine WBC Occasional, Ur Squamous Epith Cells Occasional, Urine Bacteria Trace 07/13/21 04:13: Lactate 1.4 07/13/21 05:40: Troponin I < 0.01 Result diagrams: 07/13/21 03:20 07/13/21 03:20 Orders (Tests/Meds): ED MEDICATIONS Generic Name Dose Route Start Last Admin Trade Name Freq PRN Reason Stop Dose Admin Sodium Chloride 1,000 mls @ 999 mls/hr 07/13/21 03:45 07/13/21 04:19 Sod Chlor 0.9% 1000ml Bag IV 07/13/21 04:45 999 mls/h
[2021-07-13 03:51] LABS: Basophils # 0.1 K/mm3 (0-0.2); Basophils % 0.3 % (0.1-2.0); Eosinophils # 0.1 K/mm3 (0.0-0.4); Eosinophils % 0.8 % (0.1-12.0); Hematocrit 37.1 % (37.0-47.0); Lymphocytes # 1.7 K/mm3 (0.7-4.5); Lymphocytes % 12.5 % (10-50); Mean Corpuscular HGB Conc 32.3 g/dL (31.8-35.4); Mean Corpuscular Hemoglobin 29.9 pg (27.0-31.2); Mean Corpuscular Volume 92.4 fl (81-99); Mean Platelet Volume 8.7 fl (7.4-10.4); Monocytes # 0.8 K/mm3 (0.1-1.0); Monocytes % 6.2 % (1.7-9.3); Neutrophils # 10.7 K/mm3 (1.8-7.8); Neutrophils % 80.2 % (37.0-80.0); Platelet Count 277 K/mm3 (142-424); Red Blood Count 4.01 M/mm3 (4.20-5.40); Red Cell Distribution Width 14.4 % (11.5-17.5); White Blood Count 13.4 K/mm3 (4.8-10.8)
--- NOTE | 2021-07-13 04:00 | PC.NURSE ---
Pt placed on room air, sats 95-97%. She does not wear home o2.
[2021-07-13 04:01] LABS: Alanine Aminotransferase 22 U/L (12-78); Alkaline Phosphatase 120 U/L (38-126); Anion Gap 12.5 mEq/L (5-15); Aspartate Amino Transferase 21 U/L (14-36); Bilirubin,Direct 0.2 mg/dl (0.0-0.4); Bilirubin,Indirect 0.3 mg/dL (0.0-0.9); Bilirubin,Total 0.5 mg/dl (0.2-1.3); Bilirubin,Unconjugated 0.4 mg/dL (0.0-1.1); Blood Urea Nitrogen 48 mg/dl (7-17); Calcium 8.4 mg/dl (8.4-10.2); Carbon Dioxide 25 mmol/L (22.0-30.0); Chloride 100 mmol/L (98-107); Creatinine Clearance Estimated 51 mL/min (50-200); Estimated Glomerular Filt Rate 40 ml/min (>60); GFR (African American) 49 ML/MIN (>60); Glucose 333 mg/dl (74-100); Magnesium 1.8 mg/dl (1.6-2.3); Potassium 4.5 mmoL/L (3.5-5.1); Sodium 133 mmol/L (136-145); Total Protein,Serum 5.8 g/dl (6.3-8.2)
[2021-07-13 04:07] LABS: C-Reactive Protein 155.8 mg/L (0-4)
[2021-07-13 04:11] LABS: Bilirubin,Urine Negative (Negative); Blood, Urine Negative (Negative); Color,Urine YELLOW (Yellow); Glucose,Urine (UA) 3+ (Negative); Ketones,Urine Negative (Negative); Leukocyte Esterase,Urine TRACE (Negative); Microscopic, Urine URINE MICROSCOPIC (MICROSCOPIC); Nitrate,Urine Negative (Negative); PH,Urine 5.5 (5.0-8.5); Protein,Urine Negative (Negative); Urobilinogen,Urine 0.2 EU/dl (0.2)
[2021-07-13 04:15] LABS: Appearance,Urine Cloudy (Clear)
[2021-07-13 04:16] LABS: NT Pro Brain Natriuretic Pep. 1980 pg/mL (0-125); Troponin I 0.02 ng/ml (0.00-0.034)
[2021-07-13 04:20] LABS: Erythrocyte Sedimentation Rate 62 mm/hr (0-30)
[2021-07-13 04:21] LABS: Procalcitonin 0.269 ng/mL (0.0-2.0)
[2021-07-13 04:22] LABS: Bacteria,Urine Trace /lpf; Squamous Epithelial Cell,Urine Occasional #/hpf (0-5); WBC,Urine Occasional #/hpf (0-3)
[2021-07-13 04:30] LABS: Lactic Acid 1.4 mmol/L (0.7-2.1)
[2021-07-13 06:16] LABS: Troponin I < 0.01 ng/ml (0.00-0.034)
--- NOTE | 2021-07-13 06:37 | PC.NURSE ---
Dr. Thorpe s/w Dr. Sawyer
--- NOTE | 2021-07-13 06:41 | PC.NURSE ---
Called pt's and updated him on POC, he's pulling car around, will bring pt to him
== END 2021-07-13 06:49 | disposition home or self-care (01) ==
PROVIDERS: Emergency Provider Emergency Medicine; PCP Internal Medicine Adolescent Medicine
DX: R07.2 Precordial pain (principal); E11.65 Type 2 diabetes mellitus with hyperglycemia; I10 Essential (primary) hypertension; I25.2 Old myocardial infarction; I25.10 Atherosclerotic heart disease of native coronary artery without angina pectoris; N28.9 Disorder of kidney and ureter, unspecified; E78.5 Hyperlipidemia, unspecified; Z79.899 Other long term (current) drug therapy; Z88.0 Allergy status to penicillin; Z88.2 Allergy status to sulfonamides
CPT/HCPCS: 71046; 80048; 80076; 81001; 82962; 83605; 83735; 83880; 84145; 84484; 85025; 85651; 86140; 87040; 93005; 96365; 99283

== ENCOUNTER 2021-09-30 18:56 | Emergency (ER) | payer MEDICARE, SELFPAY ==
[2021-09-30 18:58] VITALS: BP 150/72; PULSE 94; RESP 18; TEMP 37.6; O2SAT 97; BMI 25.4
[2021-09-30 20:20] LABS: POC Glucose,Bedside 281 (70-110)
[2021-09-30 20:31] LABS: Chloride 100 mmol/L (98-107); Potassium 4.5 mmoL/L (3.5-5.1); Sodium 132 mmol/L (136-145)
[2021-09-30 20:32] LABS: Basophils # 0.1 K/mm3 (0-0.2); Basophils % 1.3 % (0.1-2.0); Eosinophils % 0.2 % (0.1-12.0); Hematocrit 38.2 % (37.0-47.0); Hemoglobin 11.9 g/dL (12.2-16.2); Mean Corpuscular HGB Conc 31.2 g/dL (31.8-35.4); Mean Corpuscular Hemoglobin 28.1 pg (27.0-31.2); Mean Corpuscular Volume 90.2 fl (81-99); Mean Platelet Volume 8.2 fl (7.4-10.4); Monocytes # 0.5 K/mm3 (0.1-1.0); Monocytes % 6.7 % (1.7-9.3); Neutrophils # 5.1 K/mm3 (1.8-7.8); Neutrophils % 76.8 % (37.0-80.0); Platelet Count 194 K/mm3 (142-424); Red Blood Count 4.23 M/mm3 (4.20-5.40); Red Cell Distribution Width 14.2 % (11.5-17.5); White Blood Count 6.6 K/mm3 (4.8-10.8)
[2021-09-30 20:34] LABS: Alanine Aminotransferase 34 U/L (12-78); Albumin Level 3.5 g/dl (3.5-5.0); Albumin/Globulin Ratio 1.2 (1.1-1.8); Alkaline Phosphatase 113 U/L (38-126); Anion Gap 14.5 mEq/L (5-15); Aspartate Amino Transferase 42 U/L (14-36); Bilirubin,Total 0.5 mg/dl (0.2-1.3); Blood Urea Nitrogen 28 mg/dl (7-17); Carbon Dioxide 22 mmol/L (22.0-30.0); Creatinine Clearance Estimated 54 mL/min (50-200); Estimated Glomerular Filt Rate 71 ml/min (>60); GFR (African American) 85 ML/MIN (>60); Total Protein,Serum 6.5 g/dl (6.3-8.2)
[2021-09-30 20:35] LABS: Calcium 8.6 mg/dl (8.4-10.2); Glucose 286 mg/dl (74-100)
[2021-09-30 20:36] VITALS: BP 116/50; PULSE 90; RESP 17; O2SAT 95
[2021-09-30 21:07] VITALS: BP 151/64; PULSE 88; RESP 17; O2SAT 91
[2021-09-30 21:27] LABS: Microscopic, Urine URINE MICROSCOPIC (MICROSCOPIC)
[2021-09-30 21:28] LABS: Appearance,Urine CLOUDY (Clear); Bilirubin,Urine Negative (Negative); Blood, Urine 1+ (Negative); Color,Urine YELLOW (Yellow); Glucose,Urine (UA) 1+ (Negative); Ketones,Urine TRACE (Negative); Leukocyte Esterase,Urine Negative (Negative); Nitrate,Urine Negative (Negative); Protein,Urine 1+ (Negative); Specific Gravity, Urine 1.025 (1.005-1.030); Urobilinogen,Urine 0.2 EU/dl (0.2)
[2021-09-30 21:31] LABS: POC Glucose,Bedside 266 (70-110)
[2021-09-30 21:53] VITALS: BP 122/49; PULSE 76; RESP 17; O2SAT 91
[2021-09-30 22:04] LABS: Bacteria,Urine 4+ /lpf
[2021-09-30 22:42] VITALS: BP 124/56; PULSE 74; O2SAT 91
[2021-09-30 22:43] LABS: Acetone, Serum (Rapid) None Detected (None Detect)
[2021-09-30 22:49] LABS: Alanine Aminotransferase 35 U/L (12-78); Albumin Level 3.5 g/dl (3.5-5.0); Albumin/Globulin Ratio 1.2 (1.1-1.8); Alkaline Phosphatase 106 U/L (38-126); Anion Gap 13.5 mEq/L (5-15); Aspartate Amino Transferase 45 U/L (14-36); Bilirubin,Total 0.5 mg/dl (0.2-1.3); Blood Urea Nitrogen 27 mg/dl (7-17); Calcium 8.7 mg/dl (8.4-10.2); Carbon Dioxide 23 mmol/L (22.0-30.0); Chloride 99 mmol/L (98-107); Creatinine Clearance Estimated 54 mL/min (50-200); Estimated Glomerular Filt Rate 71 ml/min (>60); GFR (African American) 85 ML/MIN (>60); Glucose 279 mg/dl (74-100); Potassium 4.5 mmoL/L (3.5-5.1); Sodium 131 mmol/L (136-145); Total Protein,Serum 6.5 g/dl (6.3-8.2)
[2021-09-30 23:01] LABS: Troponin I 0.01 ng/ml (0.00-0.034)
[2021-09-30 23:02] LABS: Erythrocyte Sedimentation Rate 27 mm/hr (0-30)
--- NOTE | 2021-09-30 23:02 | HMH.EDGENADL ---
ED Disposition Clinical Impression: Hyperglycemia DM2 (diabetes mellitus, type 2) Qualifiers: Diabetes mellitus prison insulin use: unspecified prison insulin use status Diabetes mellitus complication status: with other specified complication Qualified Code(s): E11.69 - Type 2 diabetes mellitus with other specified complication Disposition: Home, Self-Care Condition on Discharge: Good Instructions: DI for Hyperglycemia -- Adult Additional Instructions: call pcp for follow up Referrals: Davian Sawyer MD [Primary Care Provider] - - Critical Care Critical Care Time: No Attestation: On 09/30/21, the high probability of a clinically significant, sudden or life threatening deterioration of the following system(s) required my full and direct attention, intervention and personal management. The time I documented below is in addition to time spent performing reported procedures but includes the following listed in this critical care notation. Medical Decision Making - Medical Records Medical records reviewed: Yes: I reviewed the patient's medical records. - Kiet Inquiry Pt receiving controlled substance: No Vital Signs: 09/30/21 18:58 09/30/21 20:36 09/30/21 21:07 Temperature 99.7 F H Temperature Source Oral Pulse Rate 90 88 Pulse Rate [Radial] 94 H Respiratory Rate 18 17 17 Blood Pressure 116/50 L 151/64 H Blood Pressure [Right Arm] 150/72 H Blood Pressure Mean [Right Arm] 98 Blood Pressure Source Automatic Cuff Automatic Cuff Blood Pressure Source [Right Arm] Automatic Cuff Blood Pressure Position Supine Supine Blood Pressure Position [Right Arm] Sitting 02 Sat by Pulse Oximetry 97 95 91 L Oxygen Delivery Method Room Air Room Air Room Air 09/30/21 21:53 09/30/21 22:42 Temperature Temperature Source Pulse Rate 76 74 Pulse Rate [Radial] Respiratory Rate 17 Blood Pressure 122/49 L 124/56 L Blood Pressure [Right Arm] Blood Pressure Mean [Right Arm] Blood Pressure Source Automatic Cuff Automatic Cuff Blood Pressure Source [Right Arm] Blood Pressure Position Supine Supine Blood Pressure Position [Right Arm] 02 Sat by Pulse Oximetry 91 L 91 L Oxygen Delivery Method Room Air Room Air - Lab Data Lab results reviewed: Yes: I reviewed the patient's lab results. Lab Results 09/30/21 20:02: POC Glucose 281 H 09/30/21 20:12: WBC 6.6, RBC 4.23, Hgb 11.9 L, Hct 38.2, MCV 90.2, MCH 28.1, MCHC 31.2 L, RDW 14.2, Plt Count 194, MPV 8.2, Neut % (Auto) 76.8, Lymph % (Auto) 15.0, [place] % (Auto) 6.7, Eos % (Auto) 0.2, Baso % (Auto) 1.3, Neut # (Auto) 5.1, Lymph # (Auto) 1.0, [place] # (Auto) 0.5, Eos # (Auto) 0.0, Baso # (Auto) 0.1 09/30/21 20:12: Sodium 132 L, Potassium 4.5, Chloride 100, Carbon Dioxide 22, Anion Gap 14.5, BUN 28 H, Creatinine 0.80, Estimated Creat Clear 54, Estimated GFR 71, Est GFR ( Amer) 85, Glucose 286 H, Calcium 8.6, Total Bilirubin 0.5, AST 42 H, ALT 34, Alkaline Phosphatase 113, Total Protein 6.5, Albumin 3.5, Globulin 3.0, Albumin/Globulin Ratio 1.2 09/30/21 20:12: ESR 27 09/30/21 20:12: Sodium 131 L, Potassium 4.5, Chloride 99, Carbon Dioxide 23, Anion Gap 13.5, BUN 27 H, Creatinine 0.80, Estimated Creat Clear 54, Estimated GFR 71, Est GFR ( Amer) 85, Glucose 279 H, Calcium 8.7, Total Bilirubin 0.5, AST 45 H, ALT 35, Alkaline Phosphatase 106, Troponin I 0.01, Total Protein 6.5, Albumin 3.5, Globulin 3.0, Albumin/Globulin Ratio 1.2 09/30/21 20:12: Acetone Level None detected 09/30/21 21:22: Urine Color Yellow, Urine Appearance Cloudy, Urine pH 6.0, Ur Specific [place] 1.025, Urine Protein 1+, Urine Glucose (UA) 1+, Urine Ketones Trace, Urine Blood 1+, Urine Nitrate Negative, Urine Bilirubin Negative, Urine Urobilinogen 0.2, Ur Leukocyte Esterase Negative, Urine RBC 3-5, Urine WBC 5-10, Ur Squamous Epith Cells 3-5, Urine Bacteria 4+ 09/30/21 21:24: POC Glucose 266 H Result diagrams: 09/30/21 20:12 09/30/21 20:12 Orders (Tests/Meds): ED
[2021-09-30 23:06] LABS: Procalcitonin 0.114 ng/mL (0.0-2.0)
[2021-09-30 23:10] VITALS: BP 124/56; PULSE 74; RESP 22; TEMP 36.7; O2SAT 98
== END 2021-09-30 23:18 | disposition home or self-care (01) ==
PROVIDERS: Emergency Medicine; Emergency Provider Emergency Medicine; PCP Internal Medicine Adolescent Medicine
DX: E11.65 Type 2 diabetes mellitus with hyperglycemia (principal); N30.00 Acute cystitis without hematuria; B96.20 Unspecified Escherichia coli [E. coli] as the cause of diseases classified elsewhere; I25.10 Atherosclerotic heart disease of native coronary artery without angina pectoris; E78.5 Hyperlipidemia, unspecified; I10 Essential (primary) hypertension; I25.2 Old myocardial infarction
CPT/HCPCS: 80053; 81001; 82009; 82962; 84145; 84484; 85025; 85651; 87086; 87088; 87186; 96365; 96367; 99282

== ENCOUNTER → 2022-01-31 15:17 | Outpatient (CLI) | payer MEDICARE, SELFPAY ==
--- NOTE | 2022-01-31 15:23 | XR_ITS ---
FINAL REPORT CLINICAL HISTORY: PAIN IN LEFT WRIST pt unable to make a fist FINDINGS: LEFT WRIST Three views were obtained. The bones are osteopenic. There is no acute fracture or dislocation. The visualized joint spaces are normally aligned. There is mild vascular calcification. IMPRESSION: No acute bony abnormality. Reviewed, Interpreted and Dictated by Veto Gibbons MD Transcribed by Corbin Pederson Authenticated by Veto Gibbons MD on 01/31/2022 06:03:58 PM [facility]
--- NOTE | 2022-01-31 15:24 | XR_ITS ---
FINAL REPORT CLINICAL HISTORY: PAIN RIGHT WRIST pt stated she has broke the right wrist before FINDINGS: RIGHT WRIST Three views demonstrate mildly displaced oblique fractures of the 2nd and 3rd metacarpals. There is diffuse osteopenia. The visualized joint spaces are normally aligned. Vascular calcifications are present. IMPRESSION: Fractures of the 2nd and 3rd metacarpals. Reviewed, Interpreted and Dictated by Veto Gibbons MD Transcribed by Corbin Pederson Authenticated by Veto Gibbons MD on 01/31/2022 06:04:16 PM [facility]
== END ==
PROVIDERS: PCP Internal Medicine Adolescent Medicine; Visit Provider Internal Medicine Adolescent Medicine
DX: M25.532 Pain in left wrist (principal); M25.531 Pain in right wrist
CPT/HCPCS: 73110

== ENCOUNTER → 2022-02-13 15:19 | Outpatient (CLI) | payer MEDICARE, SELFPAY ==
--- NOTE | 2022-02-13 15:22 | XR_ITS ---
FINAL REPORT CLINICAL HISTORY: wrist pain COMPARISON: January 31, 2022 FINDINGS: RIGHT WRIST Three views demonstrate osteopenia. There are mild moderate degenerative changes. There are subacute oblique fractures of the 2nd and 3rd metacarpals. There are chronic fractures of the 5th metacarpal and proximal 3rd proximal phalanx. The soft tissues are unremarkable. IMPRESSION: Subacute and chronic fractures as above. Reviewed, Interpreted and Dictated by Anthony Borja III, MD Transcribed by Corbin Pederson Authenticated by Anthony Borja III, MD on 02/13/2022 04:26:17 PM [facility]
--- NOTE | 2022-02-13 15:22 | XR_ITS ---
FINAL REPORT CLINICAL HISTORY: wrist pain COMPARISON: January 31, 2022 FINDINGS: LEFT WRIST Three views demonstrate no acute fracture or dislocation. There is osteopenia. There are mild degenerative changes. Vascular calcifications are noted. IMPRESSION: Mild degenerative changes. Reviewed, Interpreted and Dictated by Anthony Borja III, MD Transcribed by Corbin Pederson Authenticated by Anthony Borja III, MD on 02/13/2022 04:26:21 PM [facility]
== END ==
PROVIDERS: PCP Internal Medicine Adolescent Medicine; Visit Provider Physician Assistant Surgical
DX: M25.532 Pain in left wrist (principal); M25.531 Pain in right wrist
CPT/HCPCS: 73110

== ENCOUNTER → 2022-07-16 15:05 | Outpatient (CLI) | payer MEDICARE, SELFPAY ==
--- NOTE | 2022-07-16 15:15 | XR_ITS ---
FINAL REPORT CLINICAL HISTORY: Pain x 1 yr, patient injured chasing person on foot. FINDINGS: RIGHT HIP 2 views were obtained including an AP pelvis. There is no acute fracture or dislocation. There are mild degenerative changes in both hips. Postoperative changes are seen in the left femur. Vascular calcifications are present. IMPRESSION: Degenerative change with no acute bony abnormality. Reviewed, Interpreted and Dictated by Anthony Borja III, MD Transcribed by Keren Phelps Authenticated and [facility]
--- NOTE | 2022-07-16 15:15 | XR_ITS ---
FINAL REPORT CLINICAL HISTORY: Pain in Lt hip x 1 yr, pt injured chasing person on foot. FINDINGS: LEFT HIP 2 views were obtained including an AP pelvis. There is no acute fracture or dislocation. There are mild degenerative changes in both hips. Postoperative changes are seen in the left femur. Vascular calcifications are present. IMPRESSION: Degenerative change with no acute bony abnormality. Reviewed, Interpreted and Dictated by Anthony Borja III, MD Transcribed by Keren Phelps Authenticated and [facility]
== END ==
PROVIDERS: PCP Internal Medicine Adolescent Medicine; Visit Provider Internal Medicine Adolescent Medicine
DX: M25.552 Pain in left hip (principal); M25.551 Pain in right hip
CPT/HCPCS: 73502

== ENCOUNTER → 2022-08-06 13:04 | Outpatient (POV) | payer MEDICARE, SELFPAY ==
[2022-08-06 13:29] VITALS: BP 158/67; PULSE 58; RESP 18; TEMP 36.3; O2SAT 98; BMI 26.7
--- NOTE | 2022-08-06 14:11 | EXP.PAIN.OV ---
HPI Data of Consult Patient: new to practice Consult date: 08/06/22 Requesting Physician: Mable Ring APRN Primary Care Provider: Davian Sawyer MD Consult Narrative Reason for consult: Bilateral hip weakness, instability History of present illness: Ms. Ram is a 71 year old female who presents today as a new patient. She is a referral from Dr. Kovacs's office. Today the patient rates her pain a 8 out of 10. Patient states that she does have some chronic low back pain however it is her hips that bother her. Patient does state though it is not a pain in her hips as it is more decreased mobility and weakness. Patient states this is been going on for approximately 4 years ago and over the last month he just seems harder to have motivation to get up and move around. Patient states she has extreme anxiety regarding possibly falling and this often affects her mindset. Patient states in 2018 she fell and fractured both her legs and again in 2020 she did the same thing. Patient states she has had multiple episodes of physical therapy as well as occupational therapy and has done well with this however with all of these she would not continue the at home exercising and was released by each of these. Patient is in a wheelchair when she presents today. Patient states she does use a walker at home as well as a lift recliner and hospital bed. Patient does believe she just has a lack of motivation due to the high anxiety for possible falls. Patient is not currently on any scheduled medications. Her Kiet is [phone]. It has been reviewed and appropriate. CC: Mable Ring APRN [facility] Medical History (Updated 08/06/22 @ 14:17 by Mable Ring APRN) Anemia Anxiety CAD (coronary artery disease) Cataract Diabetes Femur fracture, left Femur fracture, right HLD (hyperlipidemia) HTN (hypertension) Surgical History (Updated 08/06/22 @ 13:33 by Claudine Correa RN) Hx of colonoscopy Social History (Updated 08/06/22 @ 13:33 by Claudine Correa RN) Smoking Status: Never smoker alcohol intake: never substance use type: denies use current occupational status: retired and disabled Travel in the last 8 weeks: None Review of Systems Review of Systems Review of systems:: pertinent systems reviewed and negative unless documented below Review of systems (narrative): Review of Systems: General: No recent weight changes, no fever, no sleep disturbances Respiratory: No cough, no shortness of air, no recurring pulmonary infections Cardiovascular/peripheral vascular: No chest pain, no palpitations, no edema, no shortness of breath Gastrointestinal: No new onset incontinence, normal bowel movements reported Genitourinary: No new onset incontinence Musculoskeletal: Hip weakness Psychiatric: [Normal mood/affect] Neurological: [Denies weakness in extremities], [denies balance issues] Meds Home Medications and Allergies Home Medications Medication Instructions Recorded Confirmed Type aspirin 81 mg chewable tablet 81 mg PO DAILY CAD 12/30/17 08/06/22 History cholecalciferol (vitamin D3) 25 1,000 unit PO DAILY Supplement 12/30/17 08/06/22 History mcg (1,000 unit) capsule ferrous sulfate 325 mg (65 mg 325 mg PO DAILY ANEMIA 12/30/17 08/06/22 History iron) tablet atorvastatin 40 mg tablet 40 mg PO ONCE hld 05/13/18 08/06/22 History lisinopril 40 mg tablet 40 mg PO BID BLOOD PRESSURE 05/27/18 08/06/22 History insulin glargine 100 unit/mL 20 unit SQ HS DM 12/08/19 08/06/22 History subcutaneous solution escitalopram oxalate 10 mg tablet 20 mg PO DAILY Depression 01/03/21 08/06/22 History metformin 500 mg tablet 1,000 mg PO DAILY DM 01/03/21 08/06/22 History mirtazapine 15 mg tablet 15 mg PO DAILY . 07/04/21 08/06/22 History canagliflozin 300 mg tablet 300 mg PO DAILY . 07/13/21 08/06/22 History doxazosin 4 mg tablet 4 mg PO QHS eric 07/13/21 08/06/22 History hydrochlorothiazide 50 mg tablet 50 mg PO QAM Fluid 07/13/21
== END ==
PROVIDERS: PCP Internal Medicine Adolescent Medicine; Visit Provider Nurse Practitioner Family
DX: M25.359 Other instability, unspecified hip (principal); R29.898 Other symptoms and signs involving the musculoskeletal system; F41.8 Other specified anxiety disorders
CPT/HCPCS: 99202; G0463

== ENCOUNTER 2024-01-15 14:37 | Outpatient (CLI) | payer MEDICARE, SELFPAY ==
--- NOTE | 2024-01-15 14:42 | XR_ITS ---
FINAL REPORT CLINICAL HISTORY: LT HIP PAIN COMPARISON: 07/16/2022 FINDINGS: Left hip Three views were obtained. There is no acute fracture or dislocation. There are mild degenerative changes of both hips. Postoperative changes are seen in the left femur. Note is made of vascular calcification. IMPRESSION: Degenerative and postsurgical changes. Reviewed, Interpreted and Dictated by Anthony Borja III, MD Transcribed by Isis Dye Authenticated and [facility]
--- NOTE | 2024-01-15 14:42 | XR_ITS ---
FINAL REPORT CLINICAL HISTORY: RT HIP PAIN FINDINGS: Right hip Three views were obtained. There is no acute fracture or dislocation. There are mild degenerative changes. Postoperative changes are seen in the mid femur. Note is made of vascular calcification. IMPRESSION: Degenerative and postsurgical changes. Reviewed, Interpreted and Dictated by Anthony Borja III, MD Transcribed by Isis Dye Authenticated and [facility]
== END 2024-01-15 23:59 | disposition home or self-care (01) ==
LOC: RAD 14:38
PROVIDERS: PCP Internal Medicine Adolescent Medicine; Visit Provider Internal Medicine Adolescent Medicine
DX: M25.551 Pain in right hip (principal); M25.552 Pain in left hip
CPT/HCPCS: 73502

== ENCOUNTER 2024-05-27 08:34 | Emergency (ER) | payer MEDICARE, SELFPAY ==
[2024-05-27] VITALS (18 sets, daily range): BP systolic 116–182; BP diastolic 55–78; PULSE 67–88; RESP 16–20; TEMP 36.4–37; O2SAT 94–99; BMI 25.7
--- NOTE | 2024-05-27 08:43 | ED_ITS ---
Discharge Plan Disposition Chief Complaint: Fall Prescriptions Prescriptions: No Action lisinopril 40 mg tablet 40 mg PO BID mirtazapine 15 mg tablet 15 mg PO DAILY atorvastatin 40 mg tablet 40 mg PO ONCE escitalopram oxalate 10 mg tablet 20 mg PO DAILY ferrous sulfate 325 MG tablet 325 mg PO DAILY aspirin 81 MG tablet,chewable 81 mg PO DAILY cholecalciferol (vitamin D3) 1,000 UNIT capsule 1,000 unit PO DAILY insulin glargine 100 unit/mL solution 20 unit SQ HS metformin 500 mg tablet 1,000 mg PO DAILY hydrochlorothiazide 50 MG tablet 50 mg PO QAM doxazosin 4 MG tablet 4 mg PO QHS Rx Instructions: blood pressure canagliflozin 300 MG tablet 300 mg PO DAILY Referrals Follow up/Referrals: Davian Sawyer MD [Primary Care Provider] - See instructions Stand Alone Forms Stand Alone Forms: Transfer Record - ED Print Language Print Language: Indonesian Discharge ED Provider: Alejandro Reyes General Adult HPI General Chief complaint: Fall Stated complaint: Lower leg Extremity injury Time Seen by Provider: 05/27/24 08:43 History of Present Illness HPI narrative: The patient presents with a chief complaint of a fall earlier today. She reports sliding down the side of her bed rail while her was assisting her with using the bathroom. The patient states that she is unable to do anything for herself, including getting up and walking. The patient indicates that she injured her right ankle during the fall but does not believe she hurt herself anywhere else. She denies any numbness or tingling in her foot or ankle but describes a sensation of heaviness. The patient reports having pain in her right ankle. She also mentions a history of breaking her legs four times in the past. The patient denies any pain in her knee or foot and states that she did not hit her head during the fall. She reports that her legs buckled underneath her during the incident. The patient mentions that the fall occurred this morning, likely more than a couple of hours ago. Please note that above description of symptoms, in this electronic medical record under categorization of recalled from ER triage doctor by RN are reflective of an initial nursing assessment, however, is not reflective of my full history and physical exam that was personally taken and clarified. Consequentially, this preceding description of symptoms, which may include the patient's categorized chief complaint in the EMR, do not reflect my personal clinical impression, and the ultimate description of history of present illness and patient stated complaints should be deferred to this section of the note. Unless stated otherwise or congruent with this section of the note, additional signs, symptoms, or incongruence should be interpreted as inaccurate with my clinical impression. Related Data Home Medications ?Medication ?Instructions ?Recorded ?Confirmed aspirin 81 mg chewable tablet 81 mg PO DAILY CAD 12/30/17 08/06/22 cholecalciferol (vitamin D3) 25 1,000 unit PO DAILY Supplement 12/30/17 08/06/22 mcg (1,000 unit) capsule ferrous sulfate 325 mg (65 mg 325 mg PO DAILY ANEMIA 12/30/17 08/06/22 iron) tablet atorvastatin 40 mg tablet 40 mg PO ONCE hld 05/13/18 08/06/22 lisinopril 40 mg tablet 40 mg PO BID BLOOD PRESSURE 05/27/18 08/06/22 insulin glargine 100 unit/mL 20 unit SQ HS DM 12/08/19 08/06/22 subcutaneous solution escitalopram oxalate 10 mg tablet 20 mg PO DAILY Depression 01/03/21 08/06/22 metformin 500 mg tablet 1,000 mg PO DAILY DM 01/03/21 08/06/22 mirtazapine 15 mg tablet 15 mg PO DAILY . 07/04/21 08/06/22 canagliflozin 300 mg tablet 300 mg PO DAILY . 07/13/21 08/06/22 doxazosin 4 mg tablet 4 mg PO QHS eric 07/13/21 08/06/22 hydrochlorothiazide 50 mg tablet 50 mg PO QAM Fluid 07/13/21 08/06/22 Allergies Allergy/AdvReac Type Severity Reaction Status Date / Time Penicillins Allergy Verified 02/13/22 14:25 Sulfa (Sulfonamide Allergy Verified 02/13/22 14:25 Antibiotics) [facility] Disclaimer: The information contained in this section may have been updated after the patient was seen, as this information can be updated by other users. Medical History (Updated 08/06/22 @ 14:17 by Mable Ring APRN) Cataract Femur fracture, right Femur fracture, left Anxiety Anemia Diabetes CAD (coronary artery disease) HLD (hyperlipidemia) HTN (hypertension) Surgical History (Updated 08/06/22 @ 13:33 by Claudine Correa RN) Hx of colonoscopy Social History (Updated 08/06/22 @ 13:33 by Claudine Correa RN) Smoking Status: Never smoker alcohol intake: never substance use type: denies use current occupational status: retired and disabled Travel in the last 8 weeks: None ROS Obtained: Yes other As per HPI Physical Exam General General appearance: alert and in no apparent distress Head Head exam: atraumatic and normocephalic Eye Eye exam: Present normal appearance Neck Neck exam: Present normal inspection Chest Chest inspection: Present normal inspection and symmetric chest wall rise Respiratory Respiratory exam: Present normal lung sounds bilaterally; Absent respiratory distress Cardiovascular Cardiovascular exam: Present regular rate and normal rhythm Abdominal Exam Abdominal exam: Present soft Neurological Exam Neurological exam: Present alert and oriented X3 Psychiatric Psychiatric exam: Present normal affect and normal mood Skin Skin exam: Present warm and dry Other Other exam information: Deformity of right ankle, distally neurovascularly intact, capillary refill brisk, palpable DP and PT pulses, sensation intact throughout foot. No tenderness of knee, no open injury Medical Decision Making Medical Records Medical records reviewed: Yes I reviewed the patient's medical records. Kiet Inquiry Pt receiving controlled substance: No Vital Signs: 05/27/24 08:36 05/27/24 09:00 05/27/24 09:30 Temperature 97.6 F Temperature Source Oral Pulse Rate 68 67 Pulse Rate [Radial] 70 Respiratory Rate 16 Blood Pressure 149/62 H 145/62 H Blood Pressure [Left Arm] 159/73 H Blood Pressure Mean Blood Pressure Mean [Left Arm] 101 Blood Pressure Source [Left Arm] Automatic Cuff Blood Pressure Position [Left Arm] Supine 02 Sat by Pulse Oximetry 98 99 98 Oxygen Delivery Method Room Air 05/27/24 10:00 05/27/24 10:30 05/27/24 10:45 Temperature Temperature Source Pulse Rate 67 71 71 Pulse Rate [Radial] Respiratory Rate Blood Pressure 152/63 H 146/62 H 146/62 H Blood Pressure [Left Arm] Blood Pressure Mean Blood Pressure Mean [Left Arm] Blood Pressure Source [Left Arm] Blood Pressure Position [Left Arm] 02 Sat by Pulse Oximetry 98 96 96 Oxygen Delivery Method 05/27/24 11:31 05/27/24 12:00 05/27/24 12:30 Temperature Temperature Source Pulse Rate 75 Pulse Rate [Radial] Respiratory Rate Blood Pressure 157/73 H 158/70 H 152/66 H Blood Pressure [Left Arm] Blood Pressure Mean 96 99 Blood Pressure Mean [Left Arm] Blood Pressure Source [Left Arm] Blood Pressure Position [Left Arm] 02 Sat by Pulse Oximetry 98 Oxygen Delivery Method 05/27/24 12:55 05/27/24 13:30 05/27/24 14:00 Temperature Temperature Source Pulse Rate 80 Pulse Rate [Radial] Respiratory Rate Blood Pressure 145/57 H 164/74 H 182/75 H Blood Pressure [Left Arm] Blood Pressure Mean 103 110 Blood Pressure Mean [Left Arm] Blood Pressure Source [Left Arm] Blood Pressure Position [Left Arm] 02 Sat by Pulse Oximetry 98 Oxygen Delivery Method 05/27/24 14:30 05/27/24 15:40 Temperature 98.6 F Temperature Source Pulse Rate 88 Pulse Rate [Radial] Respiratory Rate 20 Blood Pressure 179/77 H 167/77 H Blood Pressure [Left Arm] Blood Pressure Mean 108 Blood Pressure Mean [Left Arm] Blood Pressure Source [Left Arm] Blood Pressure Position [Left Arm] 02 Sat by Pulse Oximetry Oxygen Delivery Method Room Air Orders (Tests/Meds): ED MEDICATIONS Discontinued Medications Generic Name Dose Route Start Last Admin Trade Name Freq PRN Reason Stop Dose Admin Hydromorphone HCl 0.5 mg 05/27/24 15:30 05/27/24 15:48 Hydromorphone 2mg/Ml Syringe IV 05/27/24 15:31 0.5 mg ONCE ONE Administration ORDERS Category Date Time Status CT ankle RT wo con Stat Cat Scan 05/27/24 10:45 Completed Knee XR right 2 views [XR knee RT 2V] Stat Exams 05/27/24 08:56 Completed XR ankle RT 2V Stat Exams 05/27/24 08:56 Completed XR tibia fibula RT 2V Stat Exams 05/27/24 08:56 Completed CBC w/Auto Diff [Complete Blood Count Auto Diff] Stat Lab 05/27/24 08:38 Received CMP [Comprehensive Metabolic Panel] Stat Lab 05/27/24 08:38 Received Medical Decision Narrative: Patient with history and exam per above presenting for evaluation of ankle injury Diagnoses considered include fracture, sprain, no clinical evidence to suggest vascular injury, nerve injury at this time. ED workup and treatment included: ED MEDICATIONS Discontinued Medications Generic Name Dose Route Start Last Admin Trade Name Freq PRN Reason Stop Dose Admin Hydromorphone HCl 0.5 mg 05/27/24 15:30 05/27/24 15:48 Hydromorphone 2mg/Ml Syringe IV 05/27/24 15:31 0.5 mg ONCE ONE Administration ORDERS Category Date Time Status CT ankle RT wo con Stat Cat Scan 05/27/24 10:45 Completed Knee XR right 2 views [XR knee RT 2V] Stat Exams 05/27/24 08:56 Completed XR ankle RT 2V Stat Exams 05/27/24 08:56 Completed XR tibia fibula RT 2V Stat Exams 05/27/24 08:56 Completed CBC w/Auto Diff [Complete Blood Count Auto Diff] Stat Lab 05/27/24 08:38 Received CMP [Comprehensive Metabolic Panel] Stat Lab 05/27/24 08:38 Received Imaging was independently visualized and interpreted by me, significant for trimalleolar fracture Please refer to radiology report for full details. My clinical impression at this time is most consistent with complicated trimalleolar fracture with associated dislocation. Patient will be transferred to [facility] for further management given multiple comorbidities and complexity of injury. Critical Care Critical Care Time Critical Care Time: No
--- NOTE | 2024-05-27 08:56 | XR_ITS ---
FINAL REPORT CLINICAL HISTORY: fall, injury FINDINGS: Right knee Two views were obtained. Sideplate and screws are seen securing the distal femur and proximal tibia. The bones are osteopenic. There is old fracture deformity of the lateral tibial plateau. IMPRESSION: Degenerative and postoperative changes as above. Reviewed, Interpreted and Dictated by Veto Gibbons MD Transcribed by Isis Dye Authenticated and [facility]
--- NOTE | 2024-05-27 08:56 | XR_ITS ---
FINAL REPORT CLINICAL HISTORY: fall, deformity FINDINGS: Right ankle Three views were obtained. There is prominent soft tissue swelling about the ankle. There is abnormal widening of the anterior mortise. There appears to be posterior subluxation of the talus relative to the distal tibia. The bones are osteopenic. There may be subluxation of the subtalar joint. Moderate plantar spur is identified. Moderate Koffi deformity is identified. IMPRESSION: Extensive soft tissue edema with deformity of the mortise and subluxation of the talus. CT or MRI would be necessary to fully assess the underlying abnormalities. Reviewed, Interpreted and Dictated by Veto Gibbons MD Transcribed by Isis Dye Authenticated and . [facility]
--- NOTE | 2024-05-27 08:56 | XR_ITS ---
FINAL REPORT CLINICAL HISTORY: fall, deformity of ankle FINDINGS: Right tibia fibula Two views were obtained. Sideplate and screws are seen securing the proximal tibial diaphysis and diaphysis. There is prominent soft tissue swelling about the ankle. There is deformity of the ankle with widening of the mortise. IMPRESSION: Postsurgical changes as detailed above. Deformity of the ankle. Please see the report of the ankle series. Reviewed, Interpreted and Dictated by Veto Gibbons MD Transcribed by Isis Dye Authenticated and . [facility]
--- NOTE | 2024-05-27 10:45 | CT_ITS ---
FINAL REPORT TECHNIQUE: Thin section axial CT images with coronal and sagittal reformats were performed. This study was performed with techniques to keep radiation doses as low as reasonably achievable (ALARA). Individualized dose reduction techniques using automated exposure control or adjustment of mA and/or kV according to the patient''s size were employed. CLINICAL HISTORY: swelling, deformity, indeterminate xr FINDINGS: The bones are severely osteopenic. There is a fracture dislocation of the mortise. There is an oblique displaced fracture of the distal fibula. Distal fibular fragment demonstrates full shaft width posterior displacement. There is posterior dislocation of the talus relative to the distal tibia. There is a vertical fracture through the posterior malleolus. Multiple fracture fragments are present. There is a transverse fracture through the medial malleolus which is laterally displaced. Moderate plantar spur is identified. There is prominent soft tissue edema. IMPRESSION: Trimalleolar fracture dislocation of the ankle. Reviewed, Interpreted and Dictated by Veto Gibbons MD Transcribed by Isis Dye Authenticated and [facility]
--- NOTE | 2024-05-27 13:34 | PC.NURSE ---
Called [facility] per Dr Reyes to speak with Ortho about this pt. [facility] advised they would call us back
--- NOTE | 2024-05-27 13:51 | PC.NURSE ---
o/p with at this time.
--- NOTE | 2024-05-27 15:02 | PC.NURSE ---
Called [facility] back to check and see if they got the images that were powershared and they did. Advised that there team would call back as soon as they viewed them.
--- NOTE | 2024-05-27 15:23 | PC.NURSE ---
Dr. Reyes speaking with [facility].
--- NOTE | 2024-05-27 15:41 | PC.NURSE ---
Called EMS to let them know of the transfer to [facility] on this pt. They were on a previous transfer and would come get this one as soon as they get back
[2024-05-27] MEDS: HYDROMORPHONE 2MG/ML SYRINGE 0.5 MG IV (15:48)
--- NOTE | 2024-05-27 15:53 | PC.NURSE ---
Report called to Nancy at ER.
[2024-05-27 16:15] LABS: Basophils # 0.1 K/mm3 (0-0.2); Basophils % 0.3 % (0.1-2.0); Eosinophils # 0.1 K/mm3 (0.0-0.4); Eosinophils % 0.8 % (0.1-12.0); Hematocrit 35.5 % (37.0-47.0); Lymphocytes # 1.7 K/mm3 (0.7-4.5); Lymphocytes % 10.8 % (10-50); Mean Corpuscular HGB Conc 30.9 g/dL (31.8-35.4); Mean Corpuscular Hemoglobin 28.8 pg (27.0-31.2); Mean Corpuscular Volume 93.3 fl (81-99); Mean Platelet Volume 10.3 fl (7.4-10.4); Monocytes # 0.7 K/mm3 (0.1-1.0); Monocytes % 4.7 % (1.7-9.3); Neutrophils # 13.1 K/mm3 (1.8-7.8); Neutrophils % 83.3 % (37.0-80.0); Platelet Count 247 K/mm3 (142-424); Red Cell Distribution Width 15.2 % (11.5-17.5); White Blood Count 15.7 K/mm3 (4.8-10.8)
[2024-05-27 16:17] LABS: MANUAL DIFFERENTIAL MANUAL DIFFERENTIAL (MANUAL DIFF)
[2024-05-27 16:35] LABS: Alanine Aminotransferase 31 U/L (12-78); Albumin Level 3.4 g/dl (3.5-5.0); Albumin/Globulin Ratio 1.1 (1.1-1.8); Alkaline Phosphatase 133 U/L (38-126); Anion Gap 12.1 mEq/L (5-15); Aspartate Amino Transferase 42 U/L (14-36); Bilirubin,Total 0.6 mg/dl (0.2-1.3); Blood Urea Nitrogen 41 mg/dl (7-17); Calcium 8.4 mg/dl (8.4-10.2); Carbon Dioxide 21 mmol/L (22.0-30.0); Chloride 108 mmol/L (98-107); Creatinine Clearance Estimated 53 mL/min (50-200); Estimated Glomerular Filt Rate 61 ml/min (>60); GFR (African American) 74 ML/MIN (>60); Glucose 280 mg/dl (74-100); Potassium 5.1 mmoL/L (3.5-5.1); Sodium 136 mmol/L (136-145); Total Protein,Serum 6.4 g/dl (6.3-8.2)
--- NOTE | 2024-05-27 16:51 | PC.NURSE ---
GAVE REPORT TO EMS AT BEDSIDE FOR TRANSPORT TO [facility]
[2024-05-27 17:24] LABS: Lymphocytes % 10 % (10-50); Monocytes % 5 % (2-9); Neutrophils % 85 % (42-76); Platelet Estimate Normal; RBC Morphology Normal; Total Cells Counted 100
== END 2024-05-27 16:58 | disposition short-term general hospital (02) ==
PROVIDERS: Emergency Provider Emergency Medicine; PCP Internal Medicine Adolescent Medicine
DX: S82.851B Displaced trimalleolar fracture of right lower leg, initial encounter for open fracture type I or II (principal); M25.571 Pain in right ankle and joints of right foot; W19.XXXA Unspecified fall, initial encounter
CPT/HCPCS: 73560; 73590; 73600; 73700; 80053; 85007; 85025; 85027; 96374; 99285; J1170

== ENCOUNTER 2024-08-04 09:13 | Outpatient (CLI) | payer MEDICARE, SELFPAY ==
--- NOTE | 2024-08-04 09:15 | XR_ITS ---
FINAL REPORT CLINICAL HISTORY: SCREENING FINDINGS: Using L1-4, the bone mineral density of the spine is 0.869 g/cm2, corresponding to T-score of -1.6. Using the left hip, the bone mineral density of the femoral neck is 0.544 g/cm2, corresponding to a T-score of -2.8. Using the right hip, the bone mineral density of the femoral neck is 0.456 g/cm2, corresponding to a T-score of -3.5. IMPRESSION: Low bone mineral density in the lumbar spine. Osteoporotic bone mineral density in the bilateral hips. NOTE: T-score: Standard deviation compared with peak bone mass of young adult mean. *Following the recommendations of the International Society of Bone densitometry, classification of hip BMD is based on the lower of two T-scores; total hip or femoral neck. Reviewed, Interpreted and Dictated by Anthony Borja III, MD Transcribed by Keren Phelps Authenticated and [facility]
== END 2024-08-04 23:59 | disposition home or self-care (01) ==
LOC: RAD 09:13
PROVIDERS: PCP Internal Medicine Adolescent Medicine; Visit Provider Internal Medicine Adolescent Medicine
DX: M81.0 Age-related osteoporosis without current pathological fracture (principal)
CPT/HCPCS: 77080

== ENCOUNTER 2025-03-05 17:19 | Inpatient (IN) | payer MEDICARE, SELFPAY ==
[2025-03-05] VITALS (12 sets, daily range): BP systolic 134–182; BP diastolic 64–95; PULSE 76–97; RESP 11–21; TEMP 36.8–37.1; O2SAT 93–100; BMI 25.0
--- NOTE | 2025-03-05 17:28 | ECG_ITS ---
APPROVED REPORT Exam: Resting ECG HR:88 bpm ECG Measurements Heart Rate 88 AXES OK 138 P 72 QRSd 78 QRS 2 QT 378 T 40 QTc 423 Conclusion SINUS RHYTHM NONSPECIFIC T-WAVE ABNORMALITY No STEMI Electronically signed by : TATE ATKINSON, 03/06/2025 00:24:02
--- NOTE | 2025-03-05 17:35 | ED_ITS ---
<Statement entered by Mable Barr DO - 03/05/25 22:15> I was consulted by the JULIO CÉSAR, and we discussed the complexity of the problems being addressed. I approved the treatment and management plan for this patient's care in the emergency department, thus performing a substantive portion of the medical decision making. Mable Barr DO Discharge Plan Disposition Patient Disposition: Admitted Prescriptions Prescriptions: No Action lisinopril 40 mg tablet 40 mg PO BID mirtazapine 15 mg tablet 15 mg PO DAILY atorvastatin 40 mg tablet 40 mg PO ONCE escitalopram oxalate 10 mg tablet 20 mg PO DAILY ferrous sulfate 325 MG tablet 325 mg PO DAILY aspirin 81 MG tablet,chewable 81 mg PO DAILY cholecalciferol (vitamin D3) 1,000 UNIT capsule 1,000 unit PO DAILY insulin glargine 100 unit/mL solution 20 unit SQ HS metformin 500 mg tablet 1,000 mg PO DAILY hydrochlorothiazide 50 MG tablet 50 mg PO QAM doxazosin 4 MG tablet 4 mg PO QHS Rx Instructions: blood pressure canagliflozin 300 MG tablet 300 mg PO DAILY Print Language Print Language: Indonesian Discharge ED Provider: Mable Barr General Adult HPI <Jhoana Gross, CANE FEEDER - Last Filed: 03/05/25 21:44> General Chief complaint: Nausea/Vomiting/Diarrhea Stated complaint: Nausea and Vomiting Time Seen by Provider: 03/05/25 17:22 Mode of Arrival: EMS Source of Information: Patient and EMS Description of Symptoms (Recalled from ER Triage Doc. by RN): pt began getting nauseated and vomitting last night at 10pm, coffee ground looking emesis and pt is on a blood thinner, denies alcohol and drug use. vitals wnl and patient is alox4 History of Present Illness HPI narrative: Nalini Fofana is a 74-year-old female who presents emergency room today with complaints of vomiting since 10 PM last night Patient appears to have what is coffee-ground emesis in her emesis basin. States she has had multiple episodes of vomiting. Patient tells me that she is on a blood thinner but does not know which 1. I cannot find any blood thinners in her chart, waiting to ask her her medication history once he gets here. Patient reports no history of peptic ulcers, no history of GI bleeds in the past. Denies any abdominal pain but states that she has continued nausea and throwing up. Denies any fever, cough, chest pain, shortness of breath. Is a bedbound at home, lives with her . No other complaints at this time. Please note that the above description of symptoms, and this electronic medical record under categorization of recalled from ER triage doctor by RN are reflective of an initial nursing assessment, however, is not reflective of my full history and physical exam that was personally taken and clarified. Consequentially, this proceeding description of symptoms, which may include the patient's cauterized chief complaint in the EMR, do not reflect my personal clinical impression, and the ultimate description of the history of present illness stated complaints should be deferred to this section of this note. Unless stated otherwise were congruent with the section of the note, additional signs, symptoms, or incongruence can be interpreted as in or accurate with my clinical impression. Related Data Home Medications ?Medication ?Instructions ?Recorded ?Confirmed aspirin 81 mg chewable tablet 81 mg PO DAILY CAD 12/3008/06/22 cholecalciferol (vitamin D3) 25 1,000 unit PO DAILY Ramirez pplement 12/30/17 08/06/22 mcg (1,000 unit) capsule ferrous sulfate 325 mg (65 mg 325 mg PO DAILY ANEMIA 0 12/30/17 08/06/22 iron) tablet atorvastatin 40 mg tablet 40 mg PO ONCE hld 05/13/18 1 lisinopril 40 mg tablet 40 mg PO BID BLOOD PRESSURE 05/27/18 08/06/22 insulin glargine 100 unit/mL 20 unit SQ HS DM 12/08/19 08/06/22 subcutaneous solution escitalopram oxalate 10 mg tablet 20 mg PO DAILY Depre ssion 01/03/21 08/06/22 metformin 500 mg tablet 1,000 mg PO DAILY DM 1 08/06/22 mirtazapine 15 mg tablet 15 mg PO DAILY . 07/04/21 canagliflozin 300 mg tablet 300 mg PO DAILY . 07/13/21 08/06/22 doxazosin 4 mg tablet 4 mg PO QHS eric 07/13/21 hydrochlorothiazide 50 mg tablet 50 mg PO QAM Fluid 08/06/22 Allergies Allergy/AdvReac Type Severity Reaction Status Date / Time Penicillins Allergy Hives Verified 03/05/25 17:31 Sulfa (Sulfonamide Allergy Hives Verified 03/05/25 17:31 Antibiotics) [facility] <Jhoana Gross APRN - Last Filed: 03/05/25 21:44> [facility] Disclaimer: The information contained in this section may have been updated after the patient was seen, as this information can be updated by other users. Medical History (Updated 05/27/24 @ 16:58 by Jagruti Mendoza RN) Cataract Femur fracture, right Femur fracture, left Anxiety Anemia Diabetes CAD (coronary artery disease) HLD (hyperlipidemia) HTN (hypertension) Surgical History (Updated 08/06/22 @ 13:33 by Claudine Correa, ZARINA) Hx of colonoscopy Social History (Updated 08/06/22 @ 13:33 by Claudine Correa RN) Smoking Status: Never smoker alcohol intake: never substance use type: denies use current occupational status: retired and disabled Travel in the last 8 weeks?: None Have you lived/traveled outside US in past 30 days?: No Contact w/someone who lives/traveled outside US past 30 days?: No Exposure to someone with infectious disease in past 14 days?: No Do you have a fever (greater than 100.4 F or 38 C)?: No Have you tested positive for COVID-19?: No Exposed to someone with COVID-19 in past 14 days?: No Do you have a sore throat?: No Do you have a cough?: No Do you have any weakness?: No Do you have any diarrhea?: Yes Are you experiencing any unusual bleeding?: No Do you have any muscle aches/pain?: No Do you have any abdominal pain?: No Are you experiencing loss of taste or smell?: No Other Medical History Have you received the Flu Vaccine for this season: No Have you received the Pneumonia Vaccine: Yes <Jhoana Gross APRN - Last Filed: 03/05/25 21:44> ROS Obtained: Yes Systems reviewed as appropriate & no additional complaints except as documented Physical Exam <Jhoana Gross APRN - Last Filed: 03/05/25 21:44> General General appearance: alert and in no apparent distress Head Head exam: atraumatic and normocephalic Eye Eye exam: Present PERRL and EOMI Chest Chest inspection: Present symmetric chest wall rise Respiratory Respiratory exam: Present normal lung sounds bilaterally Cardiovascular Cardiovascular exam: Present regular rate and normal rhythm Abdominal Exam Abdominal exam: Present soft and normal bowel sounds; Absent tenderness Comment: Coffee-ground emesis noted in emesis bag Extremities Exam Extremities exam: Present full ROM Neurological Exam Neurological exam: Present alert and oriented X3 Skin Skin exam: Present warm, dry and intact Medical Decision Making <Jhoana Gross APRN - Last Filed: 03/05/25 21:44> Medical Records Screening: Per USPSTF and CDC recommendations, given the prevalence of disease in our region, it is our hospital?s policy to screen for HIV and viral Hepatitis for all patients aged 18 and over and those with ongoing risk factors. Kiet Inquiry Pt receiving controlled substance: No Vital Signs: 03/05/25 17:22 03/05/25 17:25 03/05/25 18:00 Temperature 98.2 F Temperature Source Oral Pulse Rate 86 83 Pulse Rate [Left Radial] 87 Respiratory Rate 14 12 Blood Pressure 161/92 H 134/64 Blood Pressure [Right Arm] 161/92 H Blood Pressure Mean [Right Arm] 115 02 Sat by Pulse Oximetry 100 98 98 Oxygen Delivery Method Room Air Room Air Room Air 03/05/25 18:30 03/05/25 19:01 03/05/25 19:30 Temperature Temperature Source Pulse Rate 90 85 76 Pulse Rate [Left Radial] Respiratory Rate 15 12 11 L Blood Pressure 139/66 173/95 H 182/72 H Blood Pressure [Right Arm] Blood Pressure Mean [Right Arm] 02 Sat by Pulse Oximetry 97 93 L 95 Oxygen Delivery Method Room Air 03/05/25 21:00 Temperature Temperature Source Pulse Rate 84 Pulse Rate [Left Radial] Respiratory Rate 12 Blood Pressure 159/65 H Blood Pressure [Right Arm] Blood Pressure Mean [Right Arm] 02 Sat by Pulse Oximetry 98 Oxygen Delivery Method Lab Data Lab Results 03/05/25 17:32: WBC 29.3 H*, RBC 4.17 L, Hgb 12.2, Hct 36.9 L, MCV 88.5, MCH 29.3, MCHC 33.1, RDW 15.0, Plt Count 281, MPV 10.1, Neut % (Auto) 87.7 H, Lymph % (Auto) 4.2 L, [place] % (Auto) 6.6, Eos % (Auto) 0.0 L, Baso % (Auto) 0.2, Neut # (Auto) 25.6 H, Lymph # (Auto) 1.2, [place] # (Auto) 1.9 H, Eos # (Auto) 0.0, Baso # (Auto) 0.1, Total Counted 100, Neutrophils % (Manual) 85 H, Lymphocytes % (Manual) 8 L, Monocytes % (Manual) 7, Platelet Estimate Normal, Poikilocytosis 1+, Tear Drop Cells 1+, Ovalocytes 1+, Adrien Cells 1+, PT 12.2, INR 1.11 H, Sodium 139, Potassium 4.5, Chloride 105, Carbon Dioxide 17 L, Anion Gap 21.5 H, BUN 37 H, Creatinine 0.80, Estimated Creat Clear 52, Estimated GFR 70, Est GFR ( Amer) 85, Glucose 325 H, Calcium 9.3, Total Bilirubin 0.9, AST 30, ALT 19, Alkaline Phosphatase 156 H, Troponin I 0.05 H, Total Protein 7.0, Albumin 3.9, Globulin 3.1, Albumin/Globulin Ratio 1.3 03/05/25 18:16: Lactate 0.9 03/05/25 18:42: VBG pH 7.32, VBG pCO2 28.3 L, VBG pO2 136.4 H, VBG HCO3 14.4 L, VBG Total CO2 15.3 L, VBG O2 Saturation 98.7 H, VBG Base Excess -11.6 L, VBG Lactic Acid 1.5 03/05/25 18:50: Urine Color Yellow, Urine Appearance Slightly cloudy, Urine pH 5.5, Ur Specific Thomson 1.015, Urine Protein Trace, Urine Glucose (UA) 3+, Urine Ketones 2+, Urine Blood Trace-i, Urine Nitrate Negative, Urine Bilirubin Negative, Urine Urobilinogen 0.2, Ur Leukocyte Esterase Negative, Urine RBC Occasional, Urine WBC 5-10, Ur Squamous Epith Cells 5-10, Urine Bacteria 4+ 03/05/25 17:32 03/05/25 17:32 Orders (Tests/Meds): ED MEDICATIONS Generic Name Dose Route Start Last Admin Trade Name Freq PRN Reason Stop Dose Admin Sodium Chloride 10 ml 03/05/25 20:29 03/05/25 20:31 Sodium Chloride 0.9% 10ml Syr (Rad Only) IV 04/04/25 20:28 10 ml NEEDED PRN Administration Maintain IV Site Discontinued Medications Generic Name Dose Route Start Last Admin Trade Name Freq PRN Reason Stop Dose Admin Pantoprazole Sodium 80 mg/ 100 mls @ 100 mls/hr 03/05/25 17:28 03/05/25 17:52 Sodium Chloride IV 03/05/25 18:27 100 mls/hr ONCE ONE Administration Sodium Chloride 1,000 mls @ 999 mls/hr 03/05/25 17:28 03/05/25 17:52 Sod Chlor 0.9% 1000ml Bag IV 03/05/25 18:28 999 mls/hr .Q1H1M ONE Administration Levofloxacin/Dextrose 750 mg in 150 mls @ 100 mls/hr 03/05/25 18:13 03/05/25 18:56 Levofloxacin 750mg/150ml Premix IV 03/05/25 19:42 100 mls/hr ONCE ONE Administration Iopamidol 75 ml 03/05/25 20:29 03/05/25 20:31 Iopamidol-370 (76%);100ml Bottle IV 03/05/25 20:30 75 ml ONCE ONE Administration Ondansetron HCl 4 mg 03/05/25 17:28 03/05/25 17:52 Ondansetron 4mg/2ml Vial IV 03/05/25 17:29 4 mg ONCE ONE Administration ORDERS Category Date Time Status CT abdomen pelvis w con Stat Cat Scan 03/05/25 19:[address] chest w con Stat Cat Scan 03/05/25 19:44 Completed CXR --portable [XR chest portable] Stat Exams 03/05/25 18:04 Completed CBC w/Auto Diff [Complete Blood Count Auto Diff] Stat Lab 03/05/25 17:32 Completed CMP [Comprehensive Metabolic Panel] Stat Lab 03/05/25 17:32 Completed Lactic Acid Stat Lab 03/05/25 18:16 Completed PT INR [Prothrombin Time INR] Stat Lab 03/05/25 17:32 Completed Trop I [Troponin I] Stat Lab 03/05/25 17:32 Completed Troponin I Q3H Lab 03/05/25 20:58 Received Troponin I Q3H Lab 03/05/25 23:30 Ordered UA [Urinalysis and Microscopic] Stat Lab 03/05/25 18:50 Completed Blood Culture Stat Micro 03/05/25 18:14 Received Urine Culture Stat Micro 03/05/25 18:50 Received VBG [Venous Blood Gas] Stat RT 03/05/25 18:42 Completed Medical Decision Narrative: In summary patient is an 74-year-old female who presents emergency department for evaluation of vomiting and nausea since 10 PM last night. Patient has what appears to be coffee-ground emesis in her emesis bag. No abdominal pain noted at, no pain to deep palpation. Patient is a bit of a poor historian.. Patient is hemodynamically stable upon arrival, afebrile. Unremarkable nonfocal physical exam, again, has coffee-ground emesis in her emesis bag. Differential diagnosis includes upper GI bleed, gastroenteritis. Initial workup will be conducted with hematologic labs, CTA of the abdomen pelvis. Initial interventions include 80 mg of Protonix IV push, crystalloid bolus, antiemetics. IV access was difficult to obtain initially, CTA of the abdomen pelvis was initially deferred. Patient without any abdominal pain, no additional vomiting, no burning in her abdomen. No ripping or tearing sensation noted. Initial workup reviewed by me showed a markedly elevated white count of 29.3. Patient initially was thought to have coffee-ground emesis upon presentation, H&H at 12 and 36. Had no additional episodes of emesis while in the hospital. She was given an 80 mg IV push dose of Protonix. Nausea resolved with Zofran. Chemistry panel showed an elevated glucose of 325, BUN of 37, anion gap at 21, with a bicarb of 17. Patient not in DKA, VBG showed a pH of 7.38. Initial troponin is 0.05. A UA was noninfectious. Chest x-ray was nonactionable. I found no source of infection on this patient to begin with. With this elevated white count, decided to order a CT chest abdomen pelvis with contrast to rule out any causes for this leukocytosis. Patient not meeting sepsis criteria has a normal lactic acid, heart rate less than 90, normotensive blood pressure, and no elevated respiratory rate. I did cover her empirically with antibiotics with Levaquin as she has a penicillin allergy. I also gave her 1 L IV fluid bolus. CT of the chest abdomen pelvis with contrast shows mild colitis and gallbladder thickening with pericholecystic edema. Upon repeat evaluation patient continued to be asymptomatic, normotensive, heart rate in the 70s. Given this, hospital medicine team consulted regarding admission for observation overnight. Hospitalist team graciously excepted patient for admission. <Mable Barr, DO - Last Filed: 03/05/25 18:18> Vital Signs: 03/05/25 17:22 03/05/25 17:25 03/05/25 18:00 Temperature 98.2 F Temperature Source Oral Pulse Rate 86 83 Pulse Rate [Left Radial] 87 Respiratory Rate 14 12 Blood Pressure 161/92 H 134/64 Blood Pressure [Right Arm] 161/92 H Blood Pressure Mean [Right Arm] 115 02 Sat by Pulse Oximetry 100 98 98 Oxygen Delivery Method Room Air Room Air Room Air 03/05/25 18:30 03/05/25 19:01 03/05/25 19:30 Temperature Temperature Source Pulse Rate 90 85 76 Pulse Rate [Left Radial] Respiratory Rate 15 12 11 L Blood Pressure 139/66 173/95 H 182/72 H Blood Pressure [Right Arm] Blood Pressure Mean [Right Arm] 02 Sat by Pulse Oximetry 97 93 L 95 Oxygen Delivery Method Room Air 03/05/25 21:00 Temperature Temperature Source Pulse Rate 84 Pulse Rate [Left Radial] Respiratory Rate 12 Blood Pressure 159/65 H Blood Pressure [Right Arm] Blood Pressure Mean [Right Arm] 02 Sat by Pulse Oximetry 98 Oxygen Delivery Method Lab Data Lab Results 03/05/25 17:32: WBC 29.3 H*, RBC 4.17 L, Hgb 12.2, Hct 36.9 L, MCV 88.5, MCH 29.3, MCHC 33.1, RDW 15.0, Plt Count 281, MPV 10.1, Neut % (Auto) 87.7 H, Lymph % (Auto) 4.2 L, [place] % (Auto) 6.6, Eos % (Auto) 0.0 L, Baso % (Auto) 0.2, Neut # (Auto) 25.6 H, Lymph # (Auto) 1.2, [place] # (Auto) 1.9 H, Eos # (Auto) 0.0, Baso # (Auto) 0.1, Total Counted 100, Neutrophils % (Manual) 85 H, Lymphocytes % (Manual) 8 L, Monocytes % (Manual) 7, Platelet Estimate Normal, Poikilocytosis 1+, Tear Drop Cells 1+, Ovalocytes 1+, Bullard Cells 1+, PT 12.2, INR 1.11 H, Sodium 139, Potassium 4.5, Chloride 105, Carbon Dioxide 17 L, Anion Gap 21.5 H, BUN 37 H, Creatinine 0.80, Estimated Creat Clear 52, Estimated GFR 70, Est GFR ( Amer) 85, Glucose 325 H, Calcium 9.3, Total Bilirubin 0.9, AST 30, ALT 19, Alkaline Phosphatase 156 H, Troponin I 0.05 H, Total Protein 7.0, Albumin 3.9, Globulin 3.1, Albumin/Globulin Ratio 1.3 03/05/25 18:16: Lactate 0.9 03/05/25 18:42: VBG pH 7.32, VBG pCO2 28.3 L, VBG pO2 136.4 H, VBG HCO3 14.4 L, VBG Total CO2 15.3 L, VBG O2 Saturation 98.7 H, VBG Base Excess -11.6 L, VBG Lactic Acid 1.5 03/05/25 18:50: Urine Color Yellow, Urine Appearance Slightly cloudy, Urine pH 5.5, Ur Specific Thomson 1.015, Urine Protein Trace, Urine Glucose (UA) 3+, Urine Ketones 2+, Urine Blood Trace-i, Urine Nitrate Negative, Urine Bilirubin Negative, Urine Urobilinogen 0.2, Ur Leukocyte Esterase Negative, Urine RBC Occasional, Urine WBC 5-10, Ur Squamous Epith Cells 5-10, Urine Bacteria 4+ Orders (Tests/Meds): ED MEDICATIONS Generic Name Dose Route Start Last Admin Trade Name Alfonsoq PRN Reason Stop Dose Admin Sodium Chloride 10 ml 03/05/25 20:29 03/05/25 20:31 Sodium Chloride 0.9% 10ml Syr (Rad Only) IV 04/04/25 20:28 10 ml NEEDED PRN Administration Maintain IV Site Discontinued Medications Generic Name Dose Route Start Last Admin Trade Name Freq PRN Reason Stop Dose Admin Pantoprazole Sodium 80 mg/ 100 mls @ 100 mls/hr 03/05/25 17:28 03/05/25 17:52 Sodium Chloride IV 03/05/25 18:27 100 mls/hr ONCE ONE Administration Sodium Chloride 1,000 mls @ 999 mls/hr 03/05/25 17:28 03/05/25 17:52 Sod Chlor 0.9% 1000ml Bag IV 03/05/25 18:28 999 mls/hr .Q1H1M ONE Administration Levofloxacin/Dextrose 750 mg in 150 mls @ 100 mls/hr 03/05/25 18:13 03/05/25 18:56 Levofloxacin 750mg/150ml Premix IV 03/05/25 19:42 100 mls/hr ONCE ONE Administration Iopamidol 75 ml 03/05/25 20:29 03/05/25 20:31 Iopamidol-370 (76%);100ml Bottle IV 03/05/25 20:30 75 ml ONCE ONE Administration Ondansetron HCl 4 mg 03/05/25 17:28 03/05/25 17:52 Ondansetron 4mg/2ml Vial IV 03/05/25 17:29 4 mg ONCE ONE Administration ORDERS Category Date Time Status CT abdomen pelvis w con Stat Cat Scan 03/05/25 19:[address] chest w con Stat Cat Scan 03/05/25 19:44 Completed CXR --portable [XR chest portable] Stat Exams 03/05/25 18:04 Completed CBC w/Auto Diff [Complete Blood Count Auto Diff] Stat Lab 03/05/25 17:32 Completed CMP [Comprehensive Metabolic Panel] Stat Lab 03/05/25 17:32 Completed Lactic Acid Stat Lab 03/05/25 18:16 Completed PT INR [Prothrombin Time INR] Stat Lab 03/05/25 17:32 Completed Trop I [Troponin I] Stat Lab 03/05/25 17:32 Completed Troponin I Q3H Lab 03/05/25 20:58 Received Troponin I Q3H Lab 03/05/25 23:30 Ordered UA [Urinalysis and Microscopic] Stat Lab 03/05/25 18:50 Completed Blood Culture Stat Micro 03/05/25 18:14 Received Urine Culture Stat Micro 03/05/25 18:50 Received VBG [Venous Blood Gas] Stat RT 03/05/25 18:42 Completed ECG Data Tracing #1: I reviewed this ECG and interpreted as documented below: Normal sinus rhythm with a ventricular rate of 88 bpm. No acute STEMI. Normal intervals ECG initial impression date: 03/05/25 ECG initial impression time: 17:40 Critical Care <Jhoana Gross, CANE FEEDER - Last Filed: 03/05/25 21:44> Critical Care Time Critical Care Time: No
[2025-03-05 17:45] LABS: Basophils # 0.1 K/mm3 (0-0.2); Basophils % 0.2 % (0.1-2.0); Hematocrit 36.9 % (37.0-47.0); Hemoglobin 12.2 g/dL (12.2-16.2); Immature Granulocytes # 0.38 10^3uL; Immature Granulocytes % 1.3 %; Lymphocytes # 1.2 K/mm3 (0.7-4.5); Lymphocytes % 4.2 % (10-50); Mean Corpuscular HGB Conc 33.1 g/dL (31.8-35.4); Mean Corpuscular Hemoglobin 29.3 pg (27.0-31.2); Mean Corpuscular Volume 88.5 fl (81-99); Mean Platelet Volume 10.1 fl (7.4-10.4); Monocytes # 1.9 K/mm3 (0.1-1.0); Monocytes % 6.6 % (1.7-9.3); Neutrophils # 25.6 K/mm3 (1.8-7.8); Neutrophils % 87.7 % (37.0-80.0); Nucleated Red Blood Cells # 0 10^3/uL; Nucleated Red Blood Cells % 0 %; Platelet Count 281 K/mm3 (142-424); Red Blood Count 4.17 M/mm3 (4.20-5.40); Red Cell Distribution Width-SD 48.6 fL; White Blood Count 29.3 K/mm3 (4.8-10.8)
[2025-03-05 17:49] LABS: MANUAL DIFFERENTIAL MANUAL DIFFERENTIAL (MANUAL DIFF)
[2025-03-05 17:50] LABS: Chloride 105 mmol/L (98-107)
[2025-03-05 17:51] LABS: Albumin Level 3.9 g/dl (3.5-5.0); Potassium 4.5 mmoL/L (3.5-5.1); Sodium 139 mmol/L (136-145)
[2025-03-05] MEDS: ONDANSETRON 4MG/2ML VIAL 4 MG IV (17:52)
[2025-03-05] MEDS: PANTOPRAZOLE SODIUM 80 MG in 0.9 % SODIUM CHLORIDE 100 ML 100 MG IV (17:52)
[2025-03-05] MEDS: 0.9 % SODIUM CHLORIDE 1000ML 1,000 ML 999 ML IV (17:52)
[2025-03-05 17:53] LABS: Alanine Aminotransferase 19 U/L (12-78); Anion Gap 21.5 mEq/L (5-15); Aspartate Amino Transferase 30 U/L (14-36); Blood Urea Nitrogen 37 mg/dl (7-17); Carbon Dioxide 17 mmol/L (22.0-30.0); Creatinine Clearance Estimated 52 mL/min (50-200); Estimated Glomerular Filt Rate 70 ml/min (>60); GFR (African American) 85 ML/MIN (>60)
[2025-03-05 17:54] LABS: Albumin/Globulin Ratio 1.3 (1.1-1.8); Alkaline Phosphatase 156 U/L (38-126); Bilirubin,Total 0.9 mg/dl (0.2-1.3); Calcium 9.3 mg/dl (8.4-10.2); Globulin 3.1 g/dL (1.3-3.2); Glucose 325 mg/dl (74-100)
[2025-03-05 17:55] LABS: INR 1.11 (0.9-1.1); Prothrombin Time 12.2 seconds (10.1-12.5)
--- NOTE | 2025-03-05 18:04 | XR_ITS ---
PROCEDURE INFORMATION: Exam: XR Chest Exam date and time: 03/05/2025 6:15 PM Age: 74 years old Clinical indication: Other: Leukocytosis TECHNIQUE: Imaging protocol: Radiologic exam of the chest. Views: 1 view. COMPARISON: CR XR CHEST 2V 07/13/2021 4:13 AM FINDINGS: Lungs: Unremarkable. No consolidation. Pleural spaces: Unremarkable. No pleural effusion. No pneumothorax. Heart/Mediastinum: Unremarkable. No cardiomegaly. Bones/joints: Old right-sided rib fractures. IMPRESSION: No acute findings.
[2025-03-05 18:06] LABS: Troponin I 0.05 ng/ml (0.00-0.034)
[2025-03-05 18:23] LABS: Lymphocytes % 8 % (10-50); Monocytes % 7 % (2-9); Neutrophils % 85 % (42-76); Platelet Estimate Normal; Poikilocytosis 1+; Total Cells Counted 100
[2025-03-05 18:24] LABS: Burr Cells 1+; Ovalocytes 1+; Tear Drop Cells 1+
[2025-03-05 18:55] LABS: Microscopic, Urine URINE MICROSCOPIC (MICROSCOPIC)
[2025-03-05] MEDS: LEVOFLOXACIN/D5W 750 MG/150 ML 750 MG/150 ML PIGGYBACK 100 MG IV (18:56)
[2025-03-05 19:02] LABS: Lactate Venous 1.5 mmol/L (0.4-2.0); VBG Base Excess -11.6 mmol/L (-2.4-2.3); VBG HCO3 14.4 mmol/L (23-30); VBG Oxygen Saturation 98.7 % (50-70); VBG PCO2 28.3 mmol/L (35-51); VBG PH 7.32 mmol/L (7.31-7.41); VBG PO2 136.4 mmol/L (28-40); VBG Total CO2 15.3 mmol/L (23-27)
[2025-03-05 19:04] LABS: Bilirubin,Urine Negative (Negative); Blood, Urine TRACE-I (Negative); Color,Urine YELLOW (Yellow); Glucose,Urine (UA) 3+ (Negative); Ketones,Urine 2+ (Negative); Leukocyte Esterase,Urine Negative (Negative); Nitrate,Urine Negative (Negative); PH,Urine 5.5 (5.0-8.5); Protein,Urine TRACE (Negative); Specific Gravity, Urine 1.015 (1.005-1.030); Urobilinogen,Urine 0.2 EU/dl (0.2)
[2025-03-05 19:08] LABS: Lactic Acid 0.9 mmol/L (0.7-2.1)
[2025-03-05 19:12] LABS: Appearance,Urine Slightly Cloudy (Clear)
--- NOTE | 2025-03-05 19:44 | CT_ITS ---
PROCEDURE INFORMATION: Exam: CT Chest With Contrast; Diagnostic Exam date and time: 03/05/2025 8:30 PM Age: 74 years old Clinical indication: Other: Sepsis, unknown source TECHNIQUE: Imaging protocol: Diagnostic computed tomography of the chest with contrast. Radiation optimization: All CT scans at this facility use at least one of these dose optimization techniques: automated exposure control; mA and/or kV adjustment per patient size (includes targeted exams where dose is matched to clinical indication); or iterative reconstruction. Contrast material: ISOVUE; Contrast volume: 75 ml; Contrast route: IV; COMPARISON: CR XR CHEST PORTABLE 03/05/2025 6:15 PM FINDINGS: Thyroid: The visualized thyroid gland is unremarkable. Lungs: No acute tracheobronchial abnormalities. Low lung volumes with patchy alveolar densities in the mid and basilar lung cueto, favor subsegmental atelectasis/hypoventilatory changes. Patchy basilar edema or pneumonitis considered less likely. No consolidations. No pulmonary mass lesions are identified. Pleural spaces: No pleural effusions. No pneumothorax. Heart: Heart size normal. Coronary arteries: Mild coronary artery calcification. Lymph nodes: No supraclavicular or axillary adenopathy. No mediastinal or hilar adenopathy. Vasculature: Mild aortic ectasia and calcific atherosclerosis. No aneurysm or dissection. No mediastinal hematoma. The pulmonary arteries demonstrate no gross abnormality. Diaphragm: Small hiatal hernia. Moderate esophageal wall thickening which is greatest in the mid and distal segments, consistent with esophagitis. Moderate fluid content in the esophagus could relate to gastroesophageal reflux or motility disorder. Gallbladder and biliary ducts: Question mild gallbladder wall thickening and possibly mild pericholecystic edema along the gallbladder fossa, although motion affected. Correlate clinically for cholecystitis, consider sonographic assessment as clinically indicated. Nondilated bile ducts for age. Kidneys: Left renal cortical cyst which does not require further assessment. Intestine: Question mild bowel wall thickening in the splenic flexure of the colon which could relate to colitis or partially contracted state. Bones/joints: No acute osseous abnormalities are identified. Soft tissues: No acute soft tissue abnormality. IMPRESSION: 1. Small hiatal hernia with moderate fluid content in the esophagus suggesting gastroesophageal reflux or motility disorder, with moderate esophageal wall thickening consistent with esophagitis. 2. Colonic wall thickening suspicious for colitis although contracted status may be significantly contributing to the appearance. 3. Questionable mild gallbladder wall thickening and pericholecystic edema although there is significant motion limitation. Correlate clinically, consider gallbladder ultrasound as clinically indicated. 4. No consolidative pulmonary infiltrates. There is patchy alveolar density in the posterior mid to basilar lung cueto, favor subsegmental atelectasis/hypoventilatory changes, less likely mild edema or pneumonitis. COMMENTS: Consistent with the [employer] [employer]'s Incidental Findings Committee white paper (J Am Julienne Radiol 2018): Any incidental renal lesion less than 1 cm or classified as too small to characterize, or any incidental cystic renal lesion characterized as simple-appearing, is likely benign. No follow-up imaging is recommended for these lesions per consensus recommendations based on imaging criteria.
--- NOTE | 2025-03-05 19:44 | CT_ITS ---
PROCEDURE INFORMATION: Exam: CT Abdomen And Pelvis With Contrast Exam date and time: 03/05/2025 8:30 PM Age: 74 years old Clinical indication: Other: Sepsis; Additional info: Sepsis, unknown source TECHNIQUE: Imaging protocol: Computed tomography of the abdomen and pelvis with contrast. Radiation optimization: All CT scans at this facility use at least one of these dose optimization techniques: automated exposure control; mA and/or kV adjustment per patient size (includes targeted exams where dose is matched to clinical indication); or iterative reconstruction. Contrast material: ISOVUE; Contrast volume: 75 ml; Contrast route: IV; COMPARISON: CR XR HIP LT 2-3V W/PELVIS 01/15/2024 2:43 PM FINDINGS: Liver: Normal contour. No mass lesions. No intrahepatic biliary ductal dilatation. Gallbladder and biliary ducts: Mild pericholecystic edema and adjacent stranding. Question mild gallbladder wall thickening. 14 x 10 mm probable sludge ball or noncalcified stone in the gallbladder neck, although enhancing soft tissue lesion could produce this appearance as well. Correlate clinically for cholecystitis, consider sonographic assessment to exclude vascularity in the neck lesion. Nondilated bile ducts for age. Small periampullary duodenal diverticulum noted. Pancreas: Mild-moderate pancreatic atrophy without acute abnormality. No pancreatic ductal dilatation. Spleen: Subcentimeter probable splenic cyst which does not require further assessment. Spleen otherwise unremarkable. Adrenal glands: Left adrenal gland is normal. 14 x 10 mm indeterminate right adrenal nodule measuring 114 Hounsfield units. In a patient with no cancer history, consider 12 month follow-up adrenal CT. (Reference: [facility]) Kidneys and ureters: No acute abnormalities. No hydronephrosis or hydroureter. No urinary tract stones are identified. There are bilateral renal cortical cysts which do not require further evaluation. Stomach and bowel: The small bowel is nondilated with no gross abnormality. Colonic wall thickening from the ascending colon through the sigmoid suggesting colitis, although contracted status may be contributing to the appearance. Appendix: The appendix is normal in caliber and demonstrates no evidence of appendicitis. Intraperitoneal space: No peritoneal free fluid or air. Vasculature: No acute vascular abnormalities. Lymph nodes: No adenopathy. Urinary bladder: Unremarkable as visualized. Reproductive: Unremarkable as visualized. Bones/joints: No acute osseous abnormalities. Osteopenia. Left femoral fixation hardware without gross complication. Chronic lower left posterior rib fractures. Mild thoracolumbar spondylosis. Soft tissues: No acute soft tissue abnormalities. IMPRESSION: 1. Findings suspicious for cholecystitis, correlate clinically. A 14 mm lesion in the gallbladder neck is most likely a sludge ball or noncalcified stone although an enhancing solid lesion might produce this appearance, recommend ultrasound assessment with Doppler evaluation to exclude internal vascularity. 2. Colonic wall thickening suspicious for colitis, although contracted status may be contributing to the appearance. 3. Indeterminate right adrenal nodule measuring 14 mm. Please see recommendations above. 4. Additional nonemergent findings detailed above. COMMENTS: Consistent with the [employer]'s Incidental Findings Committee white paper (J Am Julienne Radiol 2018): Any incidental renal lesion less than 1 cm or classified as too small to characterize, or any incidental cystic renal lesion characterized as simple-appearing, is likely benign. No follow-up imaging is recommended for these lesions per consensus recommendations based on imaging criteria. REFERENCES: Dorian MACIAS et al. Management of Incidental Adrenal Masses: A White Paper of the ACR Incidental Findings Committee. J Am Julienne Radiol. 2017;14(8):2593-4545.
[2025-03-05 19:58] LABS: Bacteria,Urine 4+ /lpf; RBC,Urine Occasional #/hpf (0-3)
[2025-03-05] MEDS: IOPAMIDOL-370 (76%);100ML BOTTLE 75 ML IV (20:31)
[2025-03-05] MEDS: SODIUM CHLORIDE 0.9% 10ML SYR (RAD ONLY) 10 ML IV (20:31)
[2025-03-05 21:40] LABS: Troponin I 0.05 ng/ml (0.00-0.034)
--- NOTE | 2025-03-05 22:09 | PC.NURSE ---
Report called to Tessie for admission to the hospital
--- NOTE | 2025-03-05 23:11 | PC.NURSE ---
UNABLE TO CONFIRM MEDS - PATIENT STATES WILL TAKE CARE OF THAT TOMORROW WHEN HE COMES IN, HE HAS A LIST OF CURRENT MEDICATIONS - HE IS NOT HERE AT THIS TIME.
[2025-03-06 00:08] LABS: Troponin I 0.05 ng/ml (0.00-0.034)
--- NOTE | 2025-03-06 02:03 | P.HP_ITS ---
<Statement entered by Gary Fischer MD - 03/06/25 14:57> Rounded on patient after nurse practitioner. Personally examined and interviewed patient. Agree with exam findings and care plan as documented. 74-year-old female who is bedbound and has not walked in over 2 years. Requires [employer] lift at home and support of family. Presented with nausea, vomiting, abdominal pain. Admitted for further management of metabolic acidosis and suspected cholecystitis. On further review of labs this morning, concern for normoglycemic DKA due to SGLT2 use in conjunction with cholecystitis. Initiating insulin regimen and IV fluids with dextrose. Surgery evaluating today. Problems addressed as follows Nausea and vomiting HEATHER Sepsis Cholecystitis DKA - High suspicion for normoglycemic DKA given glucose of 244, anion gap of 23, ketones in her urine, low bicarb. Patient is on SGLT2. - Initiate 15 units of glargine this morning. Will administer sliding scale insulin every 4 hours. Initiate D5 LR. Monitor for improvement. Repeat BMP every 6 hours to monitor for closure of gap. - CT imaging of abdomen personally reviewed showing distended gallbladder with large stone at gallbladder neck with pericholecystic fluid. Positive Marr sign on exam. White count 27.8 this morning. - Discussed case with, plan for cholecystectomy in the morning after improvement in DKA. N.p.o. at midnight - Continue broad-spectrum antibiotics with Levaquin and Flagyl renally dosed due to penicillin allergy - Repeat CBC, CMP, magnesium ordered for the morning - Zofran as needed every 6 hours 4 mg IV for nausea/vomiting - A1c 7.4 - Holding home metformin and SGLT2 due to acidosis - BUN 44, creatinine 0.9 on morning labs. Magnesium 1.8, potassium 4.1. Will replace per electrolyte protocol. Troponin 0.05, stable. Suspect type II NSTEMI from stress of DKA and nausea and vomiting. Hypertension: Normotensive at this time. Will hold bisoprolol, lisinopril, diltiazem, doxazosin. Consider resuming after surgery in the morning Functional quadriplegia: Patient is nonambulatory, has not walked in 2 years. Uses [employer] lift to get around at home. Is at baseline function. 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 Needs staff to feed her. Fully dependent for all ADLs PT evaluated, at baseline. No recommendations for placement at this time. Full code Full liquid diet, n.p.o. at midnight Received Lovenox once this morning, holding in anticipation of surgery tomorrow History of Present Illness *Admission Date: 03/05/25 *Reason for visit:: Vomiting diarrhea for more than 18 hours *History of present illness: This very debilitated 74-year-old female began to have nausea and vomiting yesterday morning., Also having spells of diarrhea.. Patient's has had her brought to the emergency room for evaluation. And patient still remains nauseated.. Patient was last seen in our ER on 2023. For an open fracture to the right ankle.. She was transferred to a different facility. Per her she has lived at home now for 3 years being bed bound. She is alert and oriented to answer most of the questions I have given her.. Also noting the old scar from the open fracture to the right ankle also some tear nails to the right foot that podiatry will need to be consulted to remove.. Evaluation of the visit the labs ER believe there is a combination of esophagitis with probably cholecystitis and some colitis.. Will keep the patient n.p.o. tonight. Except for a few ice chips and have general surgery evaluate her tomorrow. [facility] Disclaimer: The information contained in this section may have been updated after the patient was seen, as this information can be updated by other users. Medical History (Updated 03/06/25 @ 14:49 by Gary Fischer MD) Hyperglycemia Chest pain Diabetes mellitus Elbow fracture, right Malignant essential hypertension Hypertensive emergency History of recent fall Rhabdomyolysis PSVT (paroxysmal supraventricular tachycardia) Open fracture ankle, trimalleolar Cataract Femur fracture, right Femur fracture, left Anxiety Anemia Diabetes CAD (coronary artery disease) HLD (hyperlipidemia) HTN (hypertension) Surgical History Hx of colonoscopy Social History Smoking Status: Never smoker alcohol intake: never substance use type: denies use current occupational status: retired and disabled Travel in the last 8 weeks?: None Have you lived/traveled outside [place] in past 30 days?: No Contact w/someone who lives/traveled outside US past 30 days?: No Exposure to someone with infectious disease in past 14 days?: No Do you have a fever (greater than 100.4 F or 38 C)?: No Have you tested positive for COVID-19?: No Exposed to someone with COVID-19 in past 14 days?: No Do you have a sore throat?: No Do you have a cough?: No Do you have any weakness?: No Do you have any diarrhea?: Yes Are you experiencing any unusual bleeding?: No Do you have any muscle aches/pain?: No Do you have any abdominal pain?: No Are you experiencing loss of taste or smell?: No Other Medical History Have you received the Flu Vaccine for this season: No Have you received the Pneumonia Vaccine: No Review of Systems Review of Systems Review of systems:: other Constitutional Constitutional: Reports as per HPI Eyes Eyes: Reports as per HPI ENT Ears, Nose, Mouth, and Throat: Reports as per HPI *Cardiovascular Cardiovascular: Reports as per HPI *Respiratory Respiratory: Reports as per HPI *Gastrointestinal Gastrointestinal: Reports as per HPI, Reports abdominal pain, Reports belching, Reports diarrhea, Reports nausea and Reports vomiting *Genitourinary Genitourinary: Reports as per HPI *Musculoskeletal Musculoskeletal: Reports as per HPI Comments: Nonambulatory patient for the last 3 years *Neurologic Neurologic: Reports as per HPI Psychiatric Psychiatric: Reports as per HPI Endocrine Endocrine: Reports as per HPI Hematologic/Lymphatic Hematologic/Lymphatic: Reports as per HPI Allergic/Immunologic Allergic/Immunologic: Reports as per HPI Meds Home Medications and Allergies Home Medications ?Medication ?Instructions ?Recorded ?Confirmed ?Type aspirin 81 mg chewable tablet 81 mg PO DAILY CAD 12/3003/06/25 History atorvastatin 40 mg tablet 40 mg PO HS 05/13/18 5 History lisinopril 40 mg tablet 40 mg PO BID BLOOD PRESSURE 05/27/18 03/06/25 History mirtazapine 15 mg tablet 15 mg PO HS 07/04/21 5 History alendronate 70 mg tablet 70 mg PO WEEKLY 03/06/25 History bisoprolol fumarate 10 mg tablet 10 mg PO DAILY 03/06/25 History cetirizine 10 mg tablet 10 mg PO DAILY 03/06/2502/06 History dapagliflozin propanediol 10 mg 10 mg PO DAILY 5 03/06/25 History tablet (Farxiga) diltiazem HCl 90 mg tablet 90 mg PO DAILY 03/06/25 History doxazosin 4 mg tablet 4 mg PO DAILY 03/06/2503/06 History ferrous sulfate 325 mg (65 mg 325 mg PO DAILY 03/06/25 03/06/25 History iron) tablet (FeroSul) insulin glargine 100 25 unit SQ DAILY 03/06/25 History unit-lixisenatide 33 mcg/mL subcutaneous pen (Soliqua ) metformin 1,000 mg tablet 1,000 mg PO DAILY 03/06/25 0 03/06/25 History New Prescriptions to Start Prescriptions: Allergies Allergy/AdvReac Type Severity Reaction Status Date / Time Penicillins Allergy Hives Verified 03/05/25 17:31 Sulfa (Sulfonamide Allergy Hives Verified 03/05/25 17:31 Antibiotics) Exam Data for Last 24 hours Vital signs and Labs for Last 24 Hours: Temp Pulse Resp BP Pulse Ox O2 Del Method 98.7 F 89 20 157/69 H 98 Room Air 03/05/25 22:27 03/05/25 22:27 03/05/25 22:27 03/05/25 22:27 03/05/25 22:00 03/05/25 22:27 Laboratory Results - last 24 hr 03/05/25 17:32: WBC 29.3 H*, RBC 4.17 L, Hgb 12.2, Hct 36.9 L, MCV 88.5, MCH 29.3, MCHC 33.1, RDW 15.0, Plt Count 281, MPV 10.1, Neut % (Auto) 87.7 H, Lymph % (Auto) 4.2 L, [place] % (Auto) 6.6, Eos % (Auto) 0.0 L, Baso % (Auto) 0.2, Neut # (Auto) 25.6 H, Lymph # (Auto) 1.2, [place] # (Auto) 1.9 H, Eos # (Auto) 0.0, Baso # (Auto) 0.1, Total Counted 100, Neutrophils % (Manual) 85 H, Lymphocytes % (Manual) 8 L, Monocytes % (Manual) 7, Platelet Estimate Normal, Poikilocytosis 1+, Tear Drop Cells 1+, Ovalocytes 1+, [place] Cells 1+, PT 12.2, INR 1.11 H, Sodium 139, Potassium 4.5, Chloride 105, Carbon Dioxide 17 L, Anion Gap 21.5 H, BUN 37 H, Creatinine 0.80, Estimated Creat Clear 52, Estimated GFR 70, Est GFR ( Amer) 85, Glucose 325 H, Calcium 9.3, Total Bilirubin 0.9, AST 30, ALT 19, Alkaline Phosphatase 156 H, Troponin I 0.05 H, Total Protein 7.0, Albumin 3.9, Globulin 3.1, Albumin/Globulin Ratio 1.3 03/05/25 18:16: Lactate 0.9 03/05/25 18:42: VBG pH 7.32, VBG pCO2 28.3 L, VBG pO2 136.4 H, VBG HCO3 14.4 L, VBG Total CO2 15.3 L, VBG O2 Saturation 98.7 H, VBG Base Excess -11.6 L, VBG Lactic Acid 1.5 03/05/25 18:50: Urine Color Yellow, Urine Appearance Slightly cloudy, Urine pH 5.5, Ur Specific [place] 1.015, Urine Protein Trace, Urine Glucose (UA) 3+, Urine Ketones 2+, Urine Blood Trace-i, Urine Nitrate Negative, Urine Bilirubin Negative, Urine Urobilinogen 0.2, Ur Leukocyte Esterase Negative, Urine RBC Occasional, Urine WBC 5-10, Ur Squamous Epith Cells 5-10, Urine Bacteria 4+ 03/05/25 20:58: Troponin I 0.05 H 03/05/25 23:33: Troponin I 0.05 H I & O for Last 24 hours: Intake & Output 03/03/25 03/04/25 03/05/25 03/06/25 05:59 05:59 05:59 05:59 Output Total 0 / 0 Balance 0 / 0 Weight 150 lb Radiology Reports for the Last 24 Hours: Exam of the lungs basically with atelectasis no sign of true consolidative pneumonia. Noting some esophagitis gastritis and enlarged gallbladder with some thickening of the bowel wall could correlate with viral illness versus cholelithiasis Constitutional Constitutional: mild distress, thin, chronically ill appearing, disheveled and cooperative *Routine HEENT Exam Head: Present normocephalic and atraumatic Eye: Present EOMI and PERRL ENT: Present mucous membranes moist *Routine Neck Exam Neck: Present supple Routine Chest/Breast/Axilla Exam Comments: No tenderness found to the chest wall. *Routine Respiratory Exam Respiratory: Present decreased breath sounds Comments: Lungs are basically clear throughout the field with the patient breathes very shallowly. But did not hear any rales or rhonchi, there was really no cough or any difficulty in breathing *Routine Cardiovascular Exam Cardiovascular: Present RRR and murmur Comments: No edema to lower extremities *Routine Abdominal Exam Abdominal: Present soft and tenderness Comments: Mild tenderness to the abdomen did not push very deep as soon as touching her though it makes her want to throw up again. So complete abdominal exam was not done *Routine Rectal Exam Rectal:: deferred *Routine Genitalia Exam Genitalia:: deferred *Routine Extremities Exam Extremities: Present full ROM, pulses intact and normal capillary refill Comments: No edema to any of the extremities brisk capillary refill in the nails of the feet though are extremely thickened one of them is in a 90 degree angle obviously has been there for quite some time you can see the area to the injury to the right ankle there is a scabbed over area with only mild erythema no signs of cellulitis or infection Routine Back/Spine/Pelvis Exam Comments: Due to the patient's condition I did not sit her up or roll her but she told me she was not having any back pain or buttock pain also noting that from her and her that she has no skin breakdown *Routine Skin Exam Skin: Present intact, warm and lesions (Right ankle shows old lesion from open compound fracture. Heels were intact no signs of pressure ulcer to lower extremity) *Routine Neurological Exam Neurological: Present alert, oriented X3, CN II-XII intact, normal tone, vision grossly intact and hearing grossly intact Comments: Patient is bedbound but she is able to move her extremities very well she follows instructions has equal strength bilaterally Routine Psychiatric Exam Psychiatric: Present cooperative and good judgment Comments: Patient is a little slow but she is also ill at this time,, but noting that she does respond appropriately when directly asked questions she seems to get along well with her he is quite a jokester and but expresses through his behavior he enjoys taking care of his . H&P: Result Impressions 1., Gastroenteritis, may require surgical consult for cholelithiasis 2. Early dehydration IV fluids will be Assessment and Plan *Assessment and plan (1) Vomiting: Status: Acute Qualifiers: Migraine intractability: intractable Category: Medical Code(s): R11.10 - Vomiting, unspecified (2) Dehydration: Status: Acute Category: Medical Code(s): E86.0 - Dehydration (3) Colitis: Status: Acute Category: Medical Code(s): K52.9 - Noninfective gastroenteritis and colitis, unspecified (4) Esophagitis: Status: Acute Category: Medical Code(s): K20.90 - Esophagitis, unspecified without bleeding (5) Cholelithiasis and acute cholecystitis with obstruction: Status: Acute Category: Medical Code(s): K80.01 - Calculus of gallbladder with acute cholecystitis with obstruction (6) Walking difficulty due to ankle and foot: Status: Acute Category: Medical Code(s): R26.2 - Difficulty in walking, not elsewhere classified Plan Discussed case with ER, given nausea, vomiting, anion gap, requested admission for further management. Medicine agreed to admit. 1. Patient will be admitted to the floor with antiemetics. IV fluids to replace lost fluids. Keep n.p.o. except for few ice chips and determine whether general surgery consult is needed in the morning. Patient is bed bound but is being cared for at home by her . Concern for cholecystitis: Initiate Levaquin and Flagyl. CT per review showing distention and pericholecystic fluid Hyperglycemia with high anion gap. Will administer insulin once. Continuing IV fluids. Anion gap 23 on presentation White count severely elevated at 28. Repeat CBC, CMP, magnesium ordered for the morning
[2025-03-06] MEDS: LACTATED RINGERS 1000ML 1,000 ML 100 ML IV (02:35)
[2025-03-06] MEDS: ONDANSETRON 4MG/2ML VIAL 4 MG IV ×3 (02:36→20:02)
[2025-03-06 04:00] VITALS: BP 147/70; PULSE 89; RESP 16; TEMP 36.6; O2SAT 98; BMI 22.7
[2025-03-06] MEDS: humaLOG 100 UNITS/ML 10ML VIAL (SSI) SUBCUT ×5 (05:49→21:59)
--- NOTE | 2025-03-06 06:15 | PC.NURSE ---
Pt. was admitted overnight with c/o Mild colitis, gallbladder thickening, and pericholecystic edema, WBC :29.3. Pt. came to ED with nausea, vomiting and coffee ground emesis. Pt. is alert and orientated x 4. Pt. is on room air. Pt. has IV fluids infusing, Pt. had one episode of nausea and was medicated with Zofran with good relief of nausea. denies abd. pain.Pt. has a purewick in place. Pt. unable to ambulate, states her takes care of her and has a lift at home to get her out of bed to wheelchair. Pt. has trouble with hand and needs help feeding. Pt. NPO at this time. allowed to have a few ice chips. Personal item and call posadas in reach.
[2025-03-06 06:23] LABS: Basophils # 0.1 K/mm3 (0-0.2); Basophils % 0.2 % (0.1-2.0); Hematocrit 31.1 % (37.0-47.0); Immature Granulocytes # 0.44 10^3uL; Immature Granulocytes % 1.6 %; Lymphocytes # 1.4 K/mm3 (0.7-4.5); Mean Corpuscular HGB Conc 30.5 g/dL (31.8-35.4); Mean Corpuscular Volume 91.7 fl (81-99); Mean Platelet Volume 10.1 fl (7.4-10.4); Monocytes # 2.5 K/mm3 (0.1-1.0); Monocytes % 8.8 % (1.7-9.3); Neutrophils # 23.5 K/mm3 (1.8-7.8); Neutrophils % 84.4 % (37.0-80.0); Nucleated Red Blood Cells # 0 10^3/uL; Nucleated Red Blood Cells % 0 %; Platelet Count 243 K/mm3 (142-424); Red Blood Count 3.39 M/mm3 (4.20-5.40); Red Cell Distribution Width 15.3 % (11.5-17.5); Red Cell Distribution Width-SD 51.1 fL; White Blood Count 27.8 K/mm3 (4.8-10.8)
[2025-03-06 06:32] LABS: MANUAL DIFFERENTIAL MANUAL DIFFERENTIAL (MANUAL DIFF)
[2025-03-06 06:39] LABS: Alanine Aminotransferase 13 U/L (12-78); Albumin Level 3.2 g/dl (3.5-5.0); Albumin/Globulin Ratio 1.1 (1.1-1.8); Alkaline Phosphatase 159 U/L (38-126); Anion Gap 23.1 mEq/L (5-15); Aspartate Amino Transferase 37 U/L (14-36); Bilirubin,Total 0.9 mg/dl (0.2-1.3); Blood Urea Nitrogen 44 mg/dl (7-17); Calcium 8.5 mg/dl (8.4-10.2); Carbon Dioxide 12 mmol/L (22.0-30.0); Chloride 108 mmol/L (98-107); Creatinine Clearance Estimated 47 mL/min (50-200); Estimated Glomerular Filt Rate 61 ml/min (>60); GFR (African American) 74 ML/MIN (>60); Globulin 2.9 g/dL (1.3-3.2); Glucose 244 mg/dl (74-100); Magnesium 1.8 mg/dl (1.6-2.3); Potassium 4.1 mmoL/L (3.5-5.1); Sodium 139 mmol/L (136-145); Total Protein,Serum 6.1 g/dl (6.3-8.2)
[2025-03-06 06:46] LABS: POC Glucose,Bedside 256 (70-110)
--- NOTE | 2025-03-06 07:28 | PC.NURSE ---
Dr. Freedman notified of surgery consult @[id number] on 03/06
[2025-03-06 07:37] VITALS: BP 146/71; PULSE 80; RESP 16; TEMP 36.7; O2SAT 99
[2025-03-06] MEDS: DEXTROSE 50% 50ML SYRINGE (CRASH CART) 25 ML IVP (08:05)
[2025-03-06] MEDS: ENOXAPARIN 40MG/0.4ML SYRINGE 40 MG SUBCUT (08:07)
[2025-03-06] MEDS: INSULIN GLARGINE 100 UNITS/ML 10ML VIAL 15 UNIT SUBCUT (08:08)
[2025-03-06 08:18] LABS: POC Glucose,Bedside 176 (70-110)
[2025-03-06 08:29] LABS: Lymphocytes % 2 % (10-50); Monocytes % 6 % (2-9); Neutrophils % 92 % (42-76); Platelet Estimate Normal; RBC Morphology Normal; Total Cells Counted 100
[2025-03-06 08:34] LABS: Hemoglobin 9.9 g/dL (12.2-16.2)
--- NOTE | 2025-03-06 09:57 | EXP.SURG.CON ---
History of Present Illness *Admission Date: 03/05/25 *Reason for visit:: Gallbladder *History of present illness: Patient is a 74-year-old female from [facility] who presented to the emergency department overnight after she had developed nausea and vomiting beginning approximately 10 PM on 03/04/2025. There was initial concern for coffee-ground emesis. Patient initially denied any abdominal pain but she is somewhat of a poor historian. Evaluation in the emergency department revealed an appreciable leukocytosis of 29,300. H&H within reasonable limits. Liver function tests essentially normal. She was found to have notable hyperglycemia with elevated anion gap and diminished bicarbonate. She was empirically started on levofloxacin. CT scan of the abdomen and pelvis revealed findings suspicious for cholecystitis? 14 mm lesion in the gallbladder neck is most likely a sludge ball or noncalcified stone although an enhancing solid lesion might produce this appearance, recommend ultrasound assessment with Doppler evaluation to exclude internal vascularity. There was also possible colitis versus nondistended colon as well as 14 mm incidental right adrenal nodule. Since admission her white blood cell count remains elevated at 28,000. Hemoglobin is 9.9. She has 92% neutrophils. [facility] Disclaimer: The information contained in this section may have been updated after the patient was seen, as this information can be updated by other users. Medical History (Updated 03/06/25 @ 02:18 by Chris Major APRN) Hyperglycemia Chest pain Diabetes mellitus Elbow fracture, right Malignant essential hypertension Hypertensive emergency History of recent fall Rhabdomyolysis PSVT (paroxysmal supraventricular tachycardia) Open fracture ankle, trimalleolar Cataract Femur fracture, right Femur fracture, left Anxiety Anemia Diabetes CAD (coronary artery disease) HLD (hyperlipidemia) HTN (hypertension) Surgical History Hx of colonoscopy Social History Smoking Status: Never smoker alcohol intake: never substance use type: denies use current occupational status: retired and disabled Travel in the last 8 weeks?: None Have you lived/traveled outside US in past 30 days?: No Contact w/someone who lives/traveled outside US past 30 days?: No Exposure to someone with infectious disease in past 14 days?: No Do you have a fever (greater than 100.4 F or 38 C)?: No Have you tested positive for COVID-19?: No Exposed to someone with COVID-19 in past 14 days?: No Do you have a sore throat?: No Do you have a cough?: No Do you have any weakness?: No Do you have any diarrhea?: Yes Are you experiencing any unusual bleeding?: No Do you have any muscle aches/pain?: No Do you have any abdominal pain?: No Are you experiencing loss of taste or smell?: No Review of Systems *Neurologic Neurologic: Reports as per [facility] Meds Home Medications and Allergies Home Medications ?Medication ?Instructions ?Recorded ?Confirmed ?Type aspirin 81 mg chewable tablet 81 mg PO DAILY CAD 12/30/17 08/06/22 History cholecalciferol (vitamin D3) 25 1,000 unit PO DAILY Supplement 12/30/17 08/06/22 History mcg (1,000 unit) capsule ferrous sulfate 325 mg (65 mg 325 mg PO DAILY ANEMIA 12/30/17 08/06/22 History iron) tablet atorvastatin 40 mg tablet 40 mg PO ONCE hld 05/13/18 08/06/22 History lisinopril 40 mg tablet 40 mg PO BID BLOOD PRESSURE 05/27/18 08/06/22 History insulin glargine 100 unit/mL 20 unit SQ HS DM 12/08/19 08/06/22 History subcutaneous solution escitalopram oxalate 10 mg tablet 20 mg PO DAILY Depression 01/03/21 03/06/25 History metformin 500 mg tablet 1,000 mg PO DAILY DM 01/03/21 03/06/25 History mirtazapine 15 mg tablet 15 mg PO DAILY . 07/04/21 08/06/22 History canagliflozin 300 mg tablet 300 mg PO DAILY . 07/13/21 08/06/22 History doxazosin 4 mg tablet 4 mg PO QHS eric 07/13/21 03/06/25 History hydrochlorothiazide 50 mg tablet 50 mg PO QAM Fluid 07/13/21 08/06/22 History New Prescriptions to Start Prescriptions: Allergies Allergy/AdvReac Type Severity Reaction Status Date / Time Penicillins Allergy Hives Verified 03/05/25 17:31 Sulfa (Sulfonamide Allergy Hives Verified 03/05/25 17:31 Antibiotics) Exam (Inpt) Vital signs and Labs for Last 24 Hours: Temp Pulse Resp BP Pulse Ox O2 Del Method 98.1 F 80 16 146/71 H 99 Room Air 03/06/25 07:37 03/06/25 07:37 03/06/25 07:37 03/06/25 07:37 03/06/25 07:37 03/06/25 08:27 Laboratory Results - last 24 hr 03/05/25 17:32: WBC 29.3 H*, RBC 4.17 L, Hgb 12.2, Hct 36.9 L, MCV 88.5, MCH 29.3, MCHC 33.1, RDW 15.0, Plt Count 281, MPV 10.1, Neut % (Auto) 87.7 H, Lymph % (Auto) 4.2 L, [place] % (Auto) 6.6, Eos % (Auto) 0.0 L, Baso % (Auto) 0.2, Neut # (Auto) 25.6 H, Lymph # (Auto) 1.2, [place] # (Auto) 1.9 H, Eos # (Auto) 0.0, Baso # (Auto) 0.1, Total Counted 100, Neutrophils % (Manual) 85 H, Lymphocytes % (Manual) 8 L, Monocytes % (Manual) 7, Platelet Estimate Normal, Poikilocytosis 1+, Tear Drop Cells 1+, Ovalocytes 1+, Adrien Cells 1+, PT 12.2, INR 1.11 H, Sodium 139, Potassium 4.5, Chloride 105, Carbon Dioxide 17 L, Anion Gap 21.5 H, BUN 37 H, Creatinine 0.80, Estimated Creat Clear 52, Estimated GFR 70, Est GFR ( Amer) 85, Glucose 325 H, Calcium 9.3, Total Bilirubin 0.9, AST 30, ALT 19, Alkaline Phosphatase 156 H, Troponin I 0.05 H, Total Protein 7.0, Albumin 3.9, Globulin 3.1, Albumin/Globulin Ratio 1.3 03/05/25 18:16: Lactate 0.9 03/05/25 18:42: VBG pH 7.32, VBG pCO2 28.3 L, VBG pO2 136.4 H, VBG HCO3 14.4 L, VBG Total CO2 15.3 L, VBG O2 Saturation 98.7 H, VBG Base Excess -11.6 L, VBG Lactic Acid 1.5 03/05/25 18:50: Urine Color Yellow, Urine Appearance Slightly cloudy, Urine pH 5.5, Ur Specific [place] 1.015, Urine Protein Trace, Urine Glucose (UA) 3+, Urine Ketones 2+, Urine Blood Trace-i, Urine Nitrate Negative, Urine Bilirubin Negative, Urine Urobilinogen 0.2, Ur Leukocyte Esterase Negative, Urine RBC Occasional, Urine WBC 5-10, Ur Squamous Epith Cells 5-10, Urine Bacteria 4+ 03/05/25 20:58: Troponin I 0.05 H 03/05/25 23:33: Troponin I 0.05 H 03/06/25 05:41: POC Glucose 256 H 03/06/25 06:00: WBC 27.8 H*, RBC 3.39 L, Hgb 9.9 L D, Hct 31.1 L, MCV 91.7, MCH 28.0, MCHC 30.5 L, RDW 15.3, Plt Count 243, MPV 10.1, Neut % (Auto) 84.4 H, Lymph % (Auto) 5.0 L, [place] % (Auto) 8.8, Eos % (Auto) 0.0 L, Baso % (Auto) 0.2, Neut # (Auto) 23.5 H, Lymph # (Auto) 1.4, [place] # (Auto) 2.5 H, Eos # (Auto) 0.0, Baso # (Auto) 0.1, Total Counted 100, Neutrophils % (Manual) 92 H, Lymphocytes % (Manual) 2 L, Monocytes % (Manual) 6, Platelet Estimate Normal, RBC Morphology Normal, Sodium 139, Potassium 4.1, Chloride 108 H, Carbon Dioxide 12 L, Anion Gap 23.1 H, BUN 44 H, Creatinine 0.90, Estimated Creat Clear 47, Estimated GFR 61, Est GFR ( Amer) 74, Glucose 244 H D, Calcium 8.5, Magnesium 1.8, Total Bilirubin 0.9, AST 37 H, ALT 13 D, Alkaline Phosphatase 159 H, Total Protein 6.1 L, Albumin 3.2 L D, Globulin 2.9, Albumin/Globulin Ratio 1.1 03/06/25 08:04: POC Glucose 176 H I & O for Labs for Last 24 Hours: Intake & Output 03/03/25 03/04/25 03/05/25 03/06/25 11:59 11:59 11:59 11:59 Intake Total 1250 / 1250 Output Total 350 / 350 Balance 900 / 900 Weight 136 lb 6.4 oz Microbiology Reports for the Last 24 Hours: Microbiology 03/05/25 18:50 Urine,Clean Catch Urine Culture - Preliminary Gram Negative Rods Comments:: Abdomen is soft. Some diffuse tenderness without guarding or rebound. Negative Marr sign. Results Labs 03/06/25 06:00 03/06/25 06:00 Labs: Laboratory Results - last 24 hr 03/05/25 17:32: WBC 29.3 H*, RBC 4.17 L, Hgb 12.2, Hct 36.9 L, MCV 88.5, MCH 29.3, MCHC 33.1, RDW 15.0, Plt Count 281, MPV 10.1, Neut % (Auto) 87.7 H, Lymph % (Auto) 4.2 L, [place] % (Auto) 6.6, Eos % (Auto) 0.0 L, Baso % (Auto) 0.2, Neut # (Auto) 25.6 H, Lymph # (Auto) 1.2, [place] # (Auto) 1.9 H, Eos # (Auto) 0.0, Baso # (Auto) 0.1, Total Counted 100, Neutrophils % (Manual) 85 H, Lymphocytes % (Manual) 8 L, Monocytes % (Manual) 7, Platelet Estimate Normal, Poikilocytosis 1+, Tear Drop Cells 1+, Ovalocytes 1+, Adrien Cells 1+, PT 12.2, INR 1.11 H, Sodium 139, Potassium 4.5, Chloride 105, Carbon Dioxide 17 L, Anion Gap 21.5 H, BUN 37 H, Creatinine 0.80, Estimated Creat Clear 52, Estimated GFR 70, Est GFR ( Amer) 85, Glucose 325 H, Calcium 9.3, Total Bilirubin 0.9, AST 30, ALT 19, Alkaline Phosphatase 156 H, Troponin I 0.05 H, Total Protein 7.0, Albumin 3.9, Globulin 3.1, Albumin/Globulin Ratio 1.3 03/05/25 18:16: Lactate 0.9 03/05/25 18:42: VBG pH 7.32, VBG pCO2 28.3 L, VBG pO2 136.4 H, VBG HCO3 14.4 L, VBG Total CO2 15.3 L, VBG O2 Saturation 98.7 H, VBG Base Excess -11.6 L, VBG Lactic Acid 1.5 03/05/25 18:50: Urine Color Yellow, Urine Appearance Slightly cloudy, Urine pH 5.5, Ur Specific [place] 1.015, Urine Protein Trace, Urine Glucose (UA) 3+, Urine Ketones 2+, Urine Blood Trace-i, Urine Nitrate Negative, Urine Bilirubin Negative, Urine Urobilinogen 0.2, Ur Leukocyte Esterase Negative, Urine RBC Occasional, Urine WBC 5-10, Ur Squamous Epith Cells 5-10, Urine Bacteria 4+ 03/05/25 20:58: Troponin I 0.05 H 03/05/25 23:33: Troponin I 0.05 H 03/06/25 05:41: POC Glucose 256 H 03/06/25 06:00: WBC 27.8 H*, RBC 3.39 L, Hgb 9.9 L D, Hct 31.1 L, MCV 91.7, MCH 28.0, MCHC 30.5 L, RDW 15.3, Plt Count 243, MPV 10.1, Neut % (Auto) 84.4 H, Lymph % (Auto) 5.0 L, [place] % (Auto) 8.8, Eos % (Auto) 0.0 L, Baso % (Auto) 0.2, Neut # (Auto) 23.5 H, Lymph # (Auto) 1.4, [place] # (Auto) 2.5 H, Eos # (Auto) 0.0, Baso # (Auto) 0.1, Total Counted 100, Neutrophils % (Manual) 92 H, Lymphocytes % (Manual) 2 L, Monocytes % (Manual) 6, Platelet Estimate Normal, RBC Morphology Normal, Sodium 139, Potassium 4.1, Chloride 108 H, Carbon Dioxide 12 L, Anion Gap 23.1 H, BUN 44 H, Creatinine 0.90, Estimated Creat Clear 47, Estimated GFR 61, Est GFR ( Amer) 74, Glucose 244 H D, Calcium 8.5, Magnesium 1.8, Total Bilirubin 0.9, AST 37 H, ALT 13 D, Alkaline Phosphatase 159 H, Total Protein 6.1 L, Albumin 3.2 L D, Globulin 2.9, Albumin/Globulin Ratio 1.1 03/06/25 08:04: POC Glucose 176 H Assessment and Plan *Assessment and plan (1) Cholelithiasis and acute cholecystitis with obstruction: Status: Acute Category: Medical Code(s): K80.01 - Calculus of gallbladder with acute cholecystitis with obstruction Plan Reviewed the CT scan images. This does appear to be likely consistent with cholecystitis with probable gallstone. However, her tenderness is rather minimal and somewhat diffuse. At this time continue medical management with IV fluids and antibiotics. May require ultrasound prior to consideration of cholecystectomy.
[2025-03-06] MEDS: DEXTROSE 5%-LACTATED RINGERS 1,000 ML 100 ML IV ×2 (10:32→19:53)
[2025-03-06] MEDS: METRONIDAZ/SOD CHL 500 MG/100 ML PIGGYBACK 100 MG IV ×2 (10:32→17:18)
[2025-03-06 10:45] LABS: POC Glucose,Bedside 180 (70-110)
--- NOTE | 2025-03-06 11:19 | HMH.PTEV ---
Physical Therapy Evaluation Rehab PT IP Evaluation Start: 03/05/25 23:10 Freq: .once Status: Active Protocol: Document 03/06/25 11:16 CANDELARIA (Rec: 03/06/25 11:19 CANDELARIA [id number]) Subjective/History History History Per H&P: This very debilitated 74-year-old female began to have nausea and vomiting yesterday morning., Also having spells of diarrhea.. Patient's has had her brought to the emergency room for evaluation. And patient still remains nauseated.. Patient was last seen in our ER on 2023. For an open fracture to the right ankle.. She was transferred to a different facility. Per her she has lived at home now for 3 years being bed bound. She is alert and oriented to answer most of the questions I have given her.. Also noting the old scar from the open fracture to the right ankle also some tear nails to the right foot that podiatry will need to be consulted to remove.. Evaluation of the visit the labs ER believe there is a combination of esophagitis with probably cholecystitis and some colitis.. Will keep the patient n.p.o. tonight. Except for a few ice chips and have general surgery evaluate her tomorrow. Subjective Subjective Pt reports she is bed bound at baseline. Pt DEP for bed mobility and transfers. Pt owns a hospital bed, crissy lift, w/c, and ramp. Pt's provides her care at home. Pt reports she has been DEP/ bed bound for ~3 years. [facility] How much help from another person do you currently need... Turning from your Total back to your side while in a flat bed without using bedrails? Moving from lying on Total back to sitting on the side of a flat bed without using bedrails? Moving to and from a Total bed to a chair ( including a wheelchair)? Standing up from a Total chair using your arms? (e.g., wheelchair, bedside chair) Walking in hospital Total room? Climbing 3-5 steps Total with a railing? Mobility Score 6 Mobility Level [facility] Mobility 2 Bed activities/dependent transfer Mobility Calculator Rehab PT IP Eval Objective Appearance Patient Behavior Appropriate,Cooperative Patient Orientation Person Difficulty following none instructions Speech Pattern Clear Ambulation Patient Able to No Ambulate Balance Ability to Arise Unable Rehab PT IP prob,goals,plan Problems Date of Evaluation: 03/06/25 Rehab Potential Rehab Potential Innapropriate for Skilled Therapy Discharge Plan PT Discharge Plan Pt most appropriate to d/c home when deemed medically necessary. Pt not appropriate for skilled acute care PT d/t mobility being at baseline/Total A. Eval Complexity Eval Charge Codes 98647 - Moderate Complexity PHYSICIAN CERTIFICATION: I certify the specified therapy services for Nalini Ram are required, authorized, and reviewed every 30 days.
[2025-03-06 11:27] LABS: Hemoglobin A1C 7.4 % (4.0-6.0)
[2025-03-06 11:59] LABS: Chloride 111 mmol/L (98-107); Potassium 3.5 mmoL/L (3.5-5.1); Sodium 141 mmol/L (136-145)
[2025-03-06 12:00] VITALS: BP 138/70; PULSE 76; RESP 16; TEMP 36.6; O2SAT 98
[2025-03-06 12:02] LABS: Anion Gap 19.5 mEq/L (5-15); Blood Urea Nitrogen 41 mg/dl (7-17); Calcium 8.9 mg/dl (8.4-10.2); Carbon Dioxide 14 mmol/L (22.0-30.0); Creatinine Clearance Estimated 47 mL/min (50-200); Estimated Glomerular Filt Rate 61 ml/min (>60); GFR (African American) 74 ML/MIN (>60); Glucose 177 mg/dl (74-100)
--- NOTE | 2025-03-06 12:25 | EXP.ACUTE.PN ---
Subjective *Date: 03/06/25 *Time: 14:49 Interval history: Patient still having right upper quadrant pain. Nausea improved. Requesting something to eat or drink. Afebrile this morning. Denies chest pain. Still has significant lab abnormalities, concern for component of DKA with relatively normal glucose due to her SGLT2 use. Stable on room air. Poor historian Medical Exam Vital signs and Labs for Last 24 Hours: Vital Signs Temp Pulse Pulse Resp BP BP Pulse Ox 03/06/25 12:01 03/06/25 10:39 03/06/25 08:27 03/06/25 08:00 03/06/25 07:37 98.1 F 80 16 146/71 H 99 03/06/25 06:49 03/06/25 05:00 03/06/25 04:00 97.9 F 89 16 147/70 H 98 03/06/25 03:00 03/05/25 23:00 98 03/05/25 22:27 98.7 F 89 20 157/69 H 03/05/25 22:00 97 H 21 157/69 H 98 03/05/25 21:50 98.2 F 92 H 21 157/69 H 99 03/05/25 21:30 92 H 13 170/68 H 98 03/05/25 21:00 84 12 159/65 H 98 03/05/25 19:30 76 11 L 182/72 H 95 03/05/25 19:01 85 12 173/95 H 93 L 03/05/25 18:30 90 15 139/66 97 03/05/25 18:00 83 12 134/64 98 03/05/25 17:25 86 161/92 H 98 03/05/25 17:22 98.2 F 87 14 161/92 H 100 O2 Del Method 03/06/25 12:01 Room Air 03/06/25 10:39 Room Air 03/06/25 08:27 Room Air 03/06/25 08:00 Room Air 03/06/25 07:37 Room Air 03/06/25 06:49 Room Air 03/06/25 05:00 Room Air 03/06/25 04:00 Room Air 03/06/25 03:00 Room Air 03/05/25 23:00 Room Air 03/05/25 22:27 Room Air 03/05/25 22:00 03/05/25 21:50 Room Air 03/05/25 21:30 03/05/25 21:00 03/05/25 19:30 03/05/25 19:01 03/05/25 18:30 Room Air 03/05/25 18:00 Room Air 03/05/25 17:25 Room Air 03/05/25 17:22 Room Air Intake and Output 03/05/25 03/06/25 03/06/25 23:59 07:59 15:59 Intake Total 1250 / 1250 Output Total 0 / 0 350 / 350 Balance 0 / 1250 900 / 900 Intake: Intake, Total IV Amount 1250 / 1250 0.9 % Sodium Chloride 1000ML 1, 1000 / 1000 000 ml @ 999 mls/hr IV .Q1H1M ONE Rx#:[id number] Lactated Ringers 1000ML 1,000 0 / 0 ml @ 100 mls/hr IV .Q10H [facility] Rx #:[id number] Levofloxacin/D5w 750 mg/150 ml 150 / 150 750 mg In 150 ml @ 100 mls/hr IV ONCE ONE Rx#:[id number] Pantoprazole Sodium 80 mg In 0. 100 / 100 9 % Sodium Chloride 100 ml @ 100 mls/hr IV ONCE ONE Rx#: [id number] Output: Output, Urine Amount 0 / 0 350 / 350 Other: Number of Unmeasured Voids 1 0 Weight 68.039 kg 61.87 kg Patient Weight 03/06/25 23:59 Weight 61.87 kg Laboratory Results - last 24 hr 03/05/25 17:32: WBC 29.3 H*, RBC 4.17 L, Hgb 12.2, Hct 36.9 L, MCV 88.5, MCH 29.3, MCHC 33.1, RDW 15.0, Plt Count 281, MPV 10.1, Neut % (Auto) 87.7 H, Lymph % (Auto) 4.2 L, [place] % (Auto) 6.6, Eos % (Auto) 0.0 L, Baso % (Auto) 0.2, Neut # (Auto) 25.6 H, Lymph # (Auto) 1.2, [place] # (Auto) 1.9 H, Eos # (Auto) 0.0, Baso # (Auto) 0.1, Total Counted 100, Neutrophils % (Manual) 85 H, Lymphocytes % (Manual) 8 L, Monocytes % (Manual) 7, Platelet Estimate Normal, Poikilocytosis 1+, Tear Drop Cells 1+, Ovalocytes 1+, [place] Cells 1+, PT 12.2, INR 1.11 H, Sodium 139, Potassium 4.5, Chloride 105, Carbon Dioxide 17 L, Anion Gap 21.5 H, BUN 37 H, Creatinine 0.80, Estimated Creat Clear 52, Estimated GFR 70, Est GFR ( Amer) 85, Glucose 325 H, Calcium 9.3, Total Bilirubin 0.9, AST 30, ALT 19, Alkaline Phosphatase 156 H, Troponin I 0.05 H, Total Protein 7.0, Albumin 3.9, Globulin 3.1, Albumin/Globulin Ratio 1.3 03/05/25 18:16: Lactate 0.9 03/05/25 18:42: VBG pH 7.32, VBG pCO2 28.3 L, VBG pO2 136.4 H, VBG HCO3 14.4 L, VBG Total CO2 15.3 L, VBG O2 Saturation 98.7 H, VBG Base Excess -11.6 L, VBG Lactic Acid 1.5 03/05/25 18:50: Urine Color Yellow, Urine Appearance Slightly cloudy, Urine pH 5.5, Ur Specific [place] 1.015, Urine Protein Trace, Urine Glucose (UA) 3+, Urine Ketones 2+, Urine Blood Trace-i, Urine Nitrate Negative, Urine Bilirubin Negative, Urine Urobilinogen 0.2, Ur Leukocyte Esterase Negative, Urine RBC Occasional, Urine WBC 5-10, Ur Squamous Epith Cells 5-10, Urine Bacteria 4+ 03/05/25 20:58: Troponin I 0.05 H 03/05/25 23:33: Troponin I 0.05 H 03/06/25 05:41: POC Glucose 256 H 03/06/25 06:00: WBC 27.8 H*, RBC 3.39 L, Hgb 9.9 L D, Hct 31.1 L, MCV 91.7, MCH 28.0, MCHC 30.5 L, RDW 15.3, Plt Count 243, MPV 10.1, Neut % (Auto) 84.4 H, Lymph % (Auto) 5.0 L, [place] % (Auto) 8.8, Eos % (Auto) 0.0 L, Baso % (Auto) 0.2, Neut # (Auto) 23.5 H, Lymph # (Auto) 1.4, [place] # (Auto) 2.5 H, Eos # (Auto) 0.0, Baso # (Auto) 0.1, Total Counted 100, Neutrophils % (Manual) 92 H, Lymphocytes % (Manual) 2 L, Monocytes % (Manual) 6, Platelet Estimate Normal, RBC Morphology Normal, Sodium 139, Potassium 4.1, Chloride 108 H, Carbon Dioxide 12 L, Anion Gap 23.1 H, BUN 44 H, Creatinine 0.90, Estimated Creat Clear 47, Estimated GFR 61, Est GFR ( Amer) 74, Glucose 244 H D, Hemoglobin A1c 7.4 H, Calcium 8.5, Magnesium 1.8, Total Bilirubin 0.9, AST 37 H, ALT 13 D, Alkaline Phosphatase 159 H, Total Protein 6.1 L, Albumin 3.2 L D, Globulin 2.9, Albumin/Globulin Ratio 1.1 03/06/25 08:04: POC Glucose 176 H 03/06/25 10:37: POC Glucose 180 H 03/06/25 11:35: Sodium 141, Potassium 3.5, Chloride 111 H, Carbon Dioxide 14 L, Anion Gap 19.5 H, BUN 41 H, Creatinine 0.90, Estimated Creat Clear 47, Estimated GFR 61, Est GFR ( Amer) 74, Glucose 177 H D, Calcium 8.9 I & O for Labs for Last 24 Hours: Intake & Output 03/03/25 03/04/25 03/05/25 03/06/25 23:59 23:59 23:59 23:59 Intake Total 1250 / 1250 Output Total 0 / 0 350 / 350 Balance 0 / 1250 900 / 900 Weight 68.039 kg 61.87 kg Microbiology Reports for the Last 24 Hours: Microbiology 03/05/25 18:50 Urine,Clean Catch Urine Culture - Preliminary Gram Negative Rods Constitutional: Present mild distress, thin, chronically ill appearing and cooperative Head: Present atraumatic and normocephalic Respiratory: Present normal respiratory effort; Absent rhonchi, wheezes or crackles Cardiac: Present Reg Rate and Rhythm GI: Present soft, tenderness (Positive Marr sign right upper quadrant) and normal bowel sounds; Absent distention Extremities: Present normal inspection and full ROM Skin: Present intact; Absent erythema Neuro: Present Grossly Intact, alert and awake; Absent moves all extremities Comment:: Oriented to self only. Assessment and Plan *Assessment and plan (1) DKA (diabetic ketoacidosis): Status: Acute Category: Medical Code(s): E11.10 - Type 2 diabetes mellitus with ketoacidosis without coma (2) High anion gap metabolic acidosis: Status: Acute Category: Medical Code(s): E87.29 - Other acidosis (3) Cholelithiasis and acute cholecystitis with obstruction: Status: Acute Category: Medical Code(s): K80.01 - Calculus of gallbladder with acute cholecystitis with obstruction (4) Vomiting: Status: Acute Qualifiers: Migraine intractability: intractable Category: Medical Code(s): R11.10 - Vomiting, unspecified (5) Dehydration: Status: Acute Category: Medical Code(s): E86.0 - Dehydration (6) Colitis: Status: Acute Category: Medical Code(s): K52.9 - Noninfective gastroenteritis and colitis, unspecified (7) Esophagitis: Status: Acute Category: Medical Code(s): K20.90 - Esophagitis, unspecified without bleeding (8) Walking difficulty due to ankle and foot: Status: Acute Category: Medical Code(s): R26.2 - Difficulty in walking, not elsewhere classified (9) Functional quadriplegia: Status: Acute Category: Medical Code(s): R53.2 - Functional quadriplegia Plan 74-year-old female who is bedbound and has not walked in over 2 years. Requires [employer] lift at home and support of family. Presented with nausea, vomiting, abdominal pain. Admitted for further management of metabolic acidosis and suspected cholecystitis. On further review of labs this morning, concern for normoglycemic DKA due to SGLT2 use in conjunction with cholecystitis. Initiating insulin regimen and IV fluids with dextrose. Surgery evaluating today. Problems addressed as follows Nausea and vomiting HEATHER Sepsis Cholecystitis DKA - High suspicion for normoglycemic DKA given glucose of 244, anion gap of 23, ketones in her urine, low bicarb. Patient is on SGLT2. - Initiate 15 units of glargine this morning. Will administer sliding scale insulin every 4 hours. Initiate D5 LR. Monitor for improvement. Repeat BMP every 6 hours to monitor for closure of gap. - CT imaging of abdomen personally reviewed showing distended gallbladder with large stone at gallbladder neck with pericholecystic fluid. Positive Marr sign on exam. White count 27.8 this morning. - Discussed case with, plan for cholecystectomy in the morning after improvement in DKA. N.p.o. at midnight - Continue broad-spectrum antibiotics with Levaquin and Flagyl renally dosed due to penicillin allergy - Repeat CBC, CMP, magnesium ordered for the morning - Zofran as needed every 6 hours 4 mg IV for nausea/vomiting - A1c 7.4 - Holding home metformin and SGLT2 due to acidosis - BUN 44, creatinine 0.9 on morning labs. Magnesium 1.8, potassium 4.1. Will replace per electrolyte protocol. Troponin 0.05, stable. Suspect type II NSTEMI from stress of DKA and nausea and vomiting. Hypertension: Normotensive at this time. Will hold bisoprolol, lisinopril, diltiazem, doxazosin. Consider resuming after surgery in the morning Functional quadriplegia: Patient is nonambulatory, has not walked in 2 years. Uses [employer] lift to get around at home. Is at baseline function. 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 Needs staff to feed her. Fully dependent for all ADLs PT evaluated, at baseline. No recommendations for placement at this time. Full code Full liquid diet, n.p.o. at midnight Received Lovenox once this morning, holding in anticipation of surgery tomorrow
[2025-03-06 15:02] LABS: POC Glucose,Bedside 212 (70-110)
--- NOTE | 2025-03-06 15:37 | PC.NURSE ---
Aox4, turn every two hours, states she needs help with everything, zofran given once today, fsbg every four hours, 20g R ua with D5 LR@ 100 ML/HR, purewick in place.
[2025-03-06 16:00] VITALS: BP 161/87; PULSE 84; RESP 16; TEMP 36.6; O2SAT 96
[2025-03-06 18:19] LABS: Basophils # 0.1 K/mm3 (0-0.2); Basophils % 0.2 % (0.1-2.0); Hematocrit 29.8 % (37.0-47.0); Hemoglobin 9.9 g/dL (12.2-16.2); Immature Granulocytes # 0.68 10^3uL; Immature Granulocytes % 2.3 %; Lymphocytes # 1.2 K/mm3 (0.7-4.5); Mean Corpuscular HGB Conc 33.2 g/dL (31.8-35.4); Mean Corpuscular Hemoglobin 29.4 pg (27.0-31.2); Mean Corpuscular Volume 88.4 fl (81-99); Mean Platelet Volume 9.7 fl (7.4-10.4); Monocytes % 10.1 % (1.7-9.3); Neutrophils # 24.5 K/mm3 (1.8-7.8); Neutrophils % 83.4 % (37.0-80.0); Nucleated Red Blood Cells # 0 10^3/uL; Nucleated Red Blood Cells % 0 %; Platelet Count 243 K/mm3 (142-424); Red Blood Count 3.37 M/mm3 (4.20-5.40); Red Cell Distribution Width 15.4 % (11.5-17.5); Red Cell Distribution Width-SD 49.9 fL; White Blood Count 29.4 K/mm3 (4.8-10.8)
[2025-03-06 18:23] LABS: MANUAL DIFFERENTIAL MANUAL DIFFERENTIAL (MANUAL DIFF)
[2025-03-06 18:25] LABS: Chloride 108 mmol/L (98-107)
[2025-03-06 18:26] LABS: Potassium 3.1 mmoL/L (3.5-5.1); Sodium 137 mmol/L (136-145)
[2025-03-06 18:28] LABS: Blood Urea Nitrogen 34 mg/dl (7-17)
[2025-03-06 18:29] LABS: Anion Gap 12.1 mEq/L (5-15); Calcium 8.7 mg/dl (8.4-10.2); Carbon Dioxide 20 mmol/L (22.0-30.0); Creatinine Clearance Estimated 47 mL/min (50-200); Estimated Glomerular Filt Rate 82 ml/min (>60); GFR (African American) 99 ML/MIN (>60); Glucose 165 mg/dl (74-100)
[2025-03-06 18:53] LABS: Lymphocytes % 4 % (10-50); Monocytes % 8 % (2-9); Neutrophils % 88 % (42-76); Total Cells Counted 100
[2025-03-06 18:55] LABS: Burr Cells 1+; Ovalocytes 1+; Platelet Estimate Normal; Poikilocytosis 1+
[2025-03-06 19:49] VITALS: BP 179/80; PULSE 83; RESP 17; TEMP 36.8; O2SAT 99
[2025-03-06 20:00] VITALS: O2SAT 99
[2025-03-06] MEDS: MIRTAZAPINE 15 MG TABLET PO (21:52)
[2025-03-06 22:25] LABS: POC Glucose,Bedside 222 (70-110)
[2025-03-07] VITALS (17 sets, daily range): BP systolic 103–206; BP diastolic 42–87; PULSE 82–97; RESP 14–16; TEMP 36.4–37; O2SAT 92–99; BMI 24.8
[2025-03-07 00:54] LABS: Blood Urea Nitrogen 28 mg/dl (7-17); Calcium 8.8 mg/dl (8.4-10.2); Carbon Dioxide 23 mmol/L (22.0-30.0); Chloride 107 mmol/L (98-107); Creatinine Clearance Estimated 47 mL/min (50-200); Estimated Glomerular Filt Rate 82 ml/min (>60); GFR (African American) 99 ML/MIN (>60); Glucose 186 mg/dl (74-100); Sodium 137 mmol/L (136-145)
[2025-03-07] MEDS: POTASSIUM CHLORIDE 20MEQ TAB 40 MEQ PO (01:20)
[2025-03-07] MEDS: METRONIDAZ/SOD CHL 500 MG/100 ML PIGGYBACK 100 MG IV ×3 (01:57→17:22)
[2025-03-07 06:26] LABS: POC Glucose,Bedside 228 (70-110)
[2025-03-07] MEDS: DEXTROSE 5%-LACTATED RINGERS 1,000 ML 100 ML IV (06:33)
[2025-03-07] MEDS: ONDANSETRON 4MG/2ML VIAL 4 MG IV (06:33)
[2025-03-07] MEDS: humaLOG 100 UNITS/ML 10ML VIAL (SSI) SUBCUT ×3 (06:42→20:58)
[2025-03-07 07:20] LABS: Basophils # 0.1 K/mm3 (0-0.2); Basophils % 0.2 % (0.1-2.0); Hematocrit 33.7 % (37.0-47.0); Hemoglobin 10.8 g/dL (12.2-16.2); Immature Granulocytes # 1.06 10^3uL; Immature Granulocytes % 3.2 %; Lymphocytes # 1.2 K/mm3 (0.7-4.5); Lymphocytes % 3.6 % (10-50); Mean Corpuscular Hemoglobin 28.5 pg (27.0-31.2); Mean Corpuscular Volume 88.9 fl (81-99); Mean Platelet Volume 9.9 fl (7.4-10.4); Monocytes # 2.9 K/mm3 (0.1-1.0); Monocytes % 8.6 % (1.7-9.3); Neutrophils # 28.4 K/mm3 (1.8-7.8); Neutrophils % 84.4 % (37.0-80.0); Nucleated Red Blood Cells # 0 10^3/uL; Nucleated Red Blood Cells % 0 %; Platelet Count 213 K/mm3 (142-424); Red Blood Count 3.79 M/mm3 (4.20-5.40); Red Cell Distribution Width 15.3 % (11.5-17.5); Red Cell Distribution Width-SD 49.5 fL
[2025-03-07 07:28] LABS: Magnesium 1.4 mg/dl (1.6-2.3)
--- NOTE | 2025-03-07 07:28 | P.PN_ITS ---
Subjective Narrative: Patient is not states in general she does not feel well. When questioned on specifics unable to elaborate. Has had no additional diarrhea. Exam Data for Last 24 hours Vital signs and Labs for Last 24 Hours: Temp Pulse Resp BP Pulse Ox O2 Del Method 97.6 F 97 H 14 145/78 H 97 Room Air 03/07/25 04:23 03/07/25 04:23 03/07/25 04:23 03/07/25 04:23 03/07/25 04:23 03/06/25 21:00 Laboratory Results - last 24 hr 03/05/25 18:50: Urine Color Yellow, Urine Appearance Slightly cloudy, Urine pH 5.5, Ur Specific [place] 1.015, Urine Protein Trace, Urine Glucose (UA) 3+, Urine Ketones 2+, Urine Blood Trace-i, Urine Nitrate Negative, Urine Bilirubin Negative, Urine Urobilinogen 0.2, Ur Leukocyte Esterase Negative, Urine RBC Occasional, Urine WBC 5-10, Ur Squamous Epith Cells 5-10, Urine Bacteria 4+ 03/06/25 06:00: WBC 27.8 H*, RBC 3.39 L, Hgb 9.9 L D, Hct 31.1 L, MCV 91.7, MCH 28.0, MCHC 30.5 L, RDW 15.3, Plt Count 243, MPV 10.1, Neut % (Auto) 84.4 H, Lymph % (Auto) 5.0 L, [place] % (Auto) 8.8, Eos % (Auto) 0.0 L, Baso % (Auto) 0.2, Neut # (Auto) 23.5 H, Lymph # (Auto) 1.4, [place] # (Auto) 2.5 H, Eos # (Auto) 0.0, Baso # (Auto) 0.1, Total Counted 100, Neutrophils % (Manual) 92 H, Lymphocytes % (Manual) 2 L, Monocytes % (Manual) 6, Platelet Estimate Normal, RBC Morphology Normal, Hemoglobin A1c 7.4 H 03/06/25 08:04: POC Glucose 176 H 03/06/25 10:37: POC Glucose 180 H 03/06/25 11:35: Sodium 141, Potassium 3.5, Chloride 111 H, Carbon Dioxide 14 L, Anion Gap 19.5 H, BUN 41 H, Creatinine 0.90, Estimated Creat Clear 47, Estimated GFR 61, Est GFR ( Amer) 74, Glucose 177 H D, Calcium 8.9 03/06/25 14:55: POC Glucose 212 H 03/06/25 18:10: WBC 29.4 H*, RBC 3.37 L, Hgb 9.9 L, Hct 29.8 L, MCV 88.4, MCH 29.4, MCHC 33.2, RDW 15.4, Plt Count 243, MPV 9.7, Neut % (Auto) 83.4 H, Lymph % (Auto) 4.0 L, [place] % (Auto) 10.1 H, Eos % (Auto) 0.0 L, Baso % (Auto) 0.2, Neut # (Auto) 24.5 H, Lymph # (Auto) 1.2, [place] # (Auto) 3.0 H, Eos # (Auto) 0.0, Baso # (Auto) 0.1, Total Counted 100, Neutrophils % (Manual) 88 H, Lymphocytes % (Manual) 4 L, Monocytes % (Manual) 8, Platelet Estimate Normal, Poikilocytosis 1+, Ovalocytes 1+, [place] Cells 1+, Sodium 137, Potassium 3.1 L, Chloride 108 H, Carbon Dioxide 20 L, Anion Gap 12.1, BUN 34 H, Creatinine 0.70 D, Estimated Creat Clear 47, Estimated GFR 82, Est GFR ( Amer) 99 D, Glucose 165 H, Calcium 8.7 03/06/25 21:51: POC Glucose 222 H 03/07/25 00:26: Sodium 137, Potassium 3.0 L, Chloride 107, Carbon Dioxide 23, Anion Gap 10.0, BUN 28 H, Creatinine 0.70, Estimated Creat Clear 47, Estimated GFR 82, Est GFR ( Amer) 99, Glucose 186 H, Calcium 8.8 03/07/25 06:05: POC Glucose 228 H I & O for Last 24 hours: Intake & Output 03/04/25 03/05/25 03/06/25 03/07/25 11:59 11:59 11:59 11:59 Intake Total 1250 / 1250 1700 / 1700 Output Total 350 / 350 2100 / 2100 Balance 900 / 900 -400 / -400 Weight 136 lb 6.4 oz 149 lb 3 oz Microbiology Reports for the Last 24 Hours: Microbiology 03/05/25 18:14 Blood Blood Culture - Preliminary NO GROWTH AFTER 24 HOURS 03/05/25 18:16 Blood Blood Culture - Preliminary NO GROWTH AFTER 24 HOURS 03/05/25 18:50 Urine,Clean Catch Urine Culture - Preliminary Gram Negative Rods *Routine Abdominal Exam Abdominal: Present soft Comments: Minimal subjective tenderness without Marr sign. No guarding. Progress Note: A&P Assessment and plan (1) Vomiting: Status: Acute (2) Dehydration: Status: Acute (3) Colitis: Status: Acute (4) Esophagitis: Status: Acute (5) Cholelithiasis and acute cholecystitis with obstruction: Status: Acute Assessment and plan: Patient has been on clear liquid diet. Labs pending this morning but she has shown persistent significant leukocytosis. Clinical examination rather unremarkable. Likely plan for dedicated gallbladder ultrasound tomorrow to assess gallbladder and evaluate gallbladder lesion . (6) Walking difficulty due to ankle and foot: Status: Acute
[2025-03-07 07:45] LABS: White Blood Count 33.6 K/mm3 (4.8-10.8)
[2025-03-07 07:46] LABS: MANUAL DIFFERENTIAL MANUAL DIFFERENTIAL (MANUAL DIFF)
--- NOTE | 2025-03-07 08:03 | US_ITS ---
PROCEDURE INFORMATION: Exam: US Abdomen, Limited; Right Upper Quadrant Exam date and time: 03/07/2025 8:43 AM Age: 74 years old Clinical indication: Abnormal findings; Abnormal radiologic finding of the abdomen; Radiologic exam and body structure: Gb; Additional info: Abnormal gallbladder, sepsis, leukocytosis TECHNIQUE: Imaging protocol: Real time ultrasound of the abdomen with image documentation. Limited exam focused on the right upper quadrant. COMPARISON: CT ABDOMEN PELVIS W CON 03/05/2025 8:30 PM FINDINGS: Liver: Normal. No masses. Gallbladder: A calcified gallstone is noted in the neck of the gallbladder. The gallbladder wall is thickened measuring 7 mm. Mild pericholecystic fluid. Biliary ducts: The CBD is normal measuring 3.6 mm. Pancreas: Visualized pancreas is unremarkable. Right kidney: The right kidney is normal measuring 9 x 3.7 x 6 cm. IMPRESSION: Cholelithiasis with thickened gallbladder wall and mild pericholecystic fluid likely represents acute cholecystitis.
--- NOTE | 2025-03-07 08:09 | EXP.PHA.CONS ---
Pharmacy Consult Date: 03/07/25 Time: 08:09 Referring provider: DR. PAUL Reason for Consult:: VANCOMYCIN DOSING Allergies Allergy/AdvReac Type Severity Reaction Status Date / Time Penicillins Allergy Hives Verified 03/05/25 17:31 Sulfa (Sulfonamide Allergy Hives Verified 03/05/25 17:31 Antibiotics) Home Medications ?Medication ?Instructions ?Recorded ?Confirmed ?Type aspirin 81 mg chewable tablet 81 mg PO DAILY CAD 12/30/17 03/06/25 History atorvastatin 40 mg tablet 40 mg PO HS 05/13/18 03/06/25 History lisinopril 40 mg tablet 40 mg PO BID BLOOD PRESSURE 05/27/18 03/06/25 History mirtazapine 15 mg tablet 15 mg PO HS 07/04/21 03/06/25 History alendronate 70 mg tablet 70 mg PO WEEKLY 03/06/25 03/06/25 History bisoprolol fumarate 10 mg tablet 10 mg PO DAILY 03/06/25 03/06/25 History cetirizine 10 mg tablet 10 mg PO DAILY 03/06/25 03/06/25 History dapagliflozin propanediol 10 mg 10 mg PO DAILY 03/06/25 03/06/25 History tablet (Farxiga) diltiazem HCl 90 mg tablet 90 mg PO DAILY 03/06/25 03/06/25 History doxazosin 4 mg tablet 4 mg PO DAILY 03/06/25 03/06/25 History ferrous sulfate 325 mg (65 mg 325 mg PO DAILY 03/06/25 03/06/25 History iron) tablet (FeroSul) insulin glargine 100 25 unit SQ DAILY 03/06/25 03/06/25 History unit-lixisenatide 33 mcg/mL subcutaneous pen (Soliqua 100/33) metformin 1,000 mg tablet 1,000 mg PO DAILY 03/06/25 03/06/25 History New Prescriptions to Start Prescriptions: Height: 1.65 m Weight: 67.67 kg Laboratory Results:: Laboratory Results - last 24 hr 03/06/25 06:00: WBC 27.8 H*, RBC 3.39 L, Hgb 9.9 L D, Hct 31.1 L, MCV 91.7, MCH 28.0, MCHC 30.5 L, RDW 15.3, Plt Count 243, MPV 10.1, Neut % (Auto) 84.4 H, Lymph % (Auto) 5.0 L, [place] % (Auto) 8.8, Eos % (Auto) 0.0 L, Baso % (Auto) 0.2, Neut # (Auto) 23.5 H, Lymph # (Auto) 1.4, [place] # (Auto) 2.5 H, Eos # (Auto) 0.0, Baso # (Auto) 0.1, Total Counted 100, Neutrophils % (Manual) 92 H, Lymphocytes % (Manual) 2 L, Monocytes % (Manual) 6, Platelet Estimate Normal, RBC Morphology Normal, Hemoglobin A1c 7.4 H 03/06/25 08:04: POC Glucose 176 H 03/06/25 10:37: POC Glucose 180 H 03/06/25 11:35: Sodium 141, Potassium 3.5, Chloride 111 H, Carbon Dioxide 14 L, Anion Gap 19.5 H, BUN 41 H, Creatinine 0.90, Estimated Creat Clear 47, Estimated GFR 61, Est GFR ( Amer) 74, Glucose 177 H D, Calcium 8.9 03/06/25 14:55: POC Glucose 212 H 03/06/25 18:10: WBC 29.4 H*, RBC 3.37 L, Hgb 9.9 L, Hct 29.8 L, MCV 88.4, MCH 29.4, MCHC 33.2, RDW 15.4, Plt Count 243, MPV 9.7, Neut % (Auto) 83.4 H, Lymph % (Auto) 4.0 L, [place] % (Auto) 10.1 H, Eos % (Auto) 0.0 L, Baso % (Auto) 0.2, Neut # (Auto) 24.5 H, Lymph # (Auto) 1.2, [place] # (Auto) 3.0 H, Eos # (Auto) 0.0, Baso # (Auto) 0.1, Total Counted 100, Neutrophils % (Manual) 88 H, Lymphocytes % (Manual) 4 L, Monocytes % (Manual) 8, Platelet Estimate Normal, Poikilocytosis 1+, Ovalocytes 1+, [place] Cells 1+, Sodium 137, Potassium 3.1 L, Chloride 108 H, Carbon Dioxide 20 L, Anion Gap 12.1, BUN 34 H, Creatinine 0.70 D, Estimated Creat Clear 47, Estimated GFR 82, Est GFR ( Amer) 99 D, Glucose 165 H, Calcium 8.7 03/06/25 21:51: POC Glucose 222 H 03/07/25 00:26: Sodium 137, Potassium 3.0 L, Chloride 107, Carbon Dioxide 23, Anion Gap 10.0, BUN 28 H, Creatinine 0.70, Estimated Creat Clear 47, Estimated GFR 82, Est GFR ( Amer) 99, Glucose 186 H, Calcium 8.8 03/07/25 06:05: POC Glucose 228 H 03/07/25 06:30: WBC 33.6 H*, RBC 3.79 L, Hgb 10.8 L, Hct 33.7 L, MCV 88.9, MCH 28.5, MCHC 32.0, RDW 15.3, Plt Count 213, MPV 9.9, Neut % (Auto) 84.4 H, Lymph % (Auto) 3.6 L, [place] % (Auto) 8.6, Eos % (Auto) 0.0 L, Baso % (Auto) 0.2, Neut # (Auto) 28.4 H, Lymph # (Auto) 1.2, [place] # (Auto) 2.9 H, Eos # (Auto) 0.0, Baso # (Auto) 0.1, Magnesium 1.4 L D Medical History: Medical History (Updated 03/06/25 @ 14:49 by Gary Paul MD) Hyperglycemia Chest pain Diabetes mellitus Elbow fracture, right Malignant essential hypertension Hypertensive emergency History of recent fall Rhabdomyolysis PSVT (paroxysmal supraventricular tachycardia) Open fracture ankle, trimalleolar Cataract Femur fracture, right Femur fracture, left Anxiety Anemia Diabetes CAD (coronary artery disease) HLD (hyperlipidemia) HTN (hypertension) Assessment and Plan Assessment and plan all Dx Assessment and Plan for all problems:: Pharmacokinetic dosing service Objective: Patient: Floor: Age: 74 yo Serum creatinine: 1 mg/dL Height: 65.0 Inches Weight (kg): 68 Assessment: IBW (kg): 57.00 Dosing wt(kg): 68 Estimated Creatinine clearance (ml/min): 43.7 CRCL method: Cockcroft and Gault using ibw(default). Drug selected: Vancomycin Loading dose (mg): 0 Vd (liters): 54.4 (factor used: 0.8 L/kg) Daniel (hr-1): 0.041 Half life (hrs): 16.91 Recommended dose: 1250 mg Interval: 24 hrs Infusion time (hrs): 2.0 Predicted peak (mcg/mL): 35.2 Predicted trough (mcg/mL): 14.28 Total body weight is being used for vancomycin dosing. Recommendations: Give Vancomycin 1250 mg q 24 hrs with an expected Cpeak of 35.2 mcg/ml and an expected Ctrough of 14.28 mcg/ml ----Vanco only - ignore for aminoglycosides----- CLvanco= 2.23 L/hr AUC 0-24 /RACHEL Data: RACHEL 0.5 mcg/mL: AUC/RACHEL: 1121.1 RACHEL 1.0 mcg/mL: AUC/RACHEL: 560.5 --------- RACHEL 1.5 mcg/mL: AUC/RACHEL: 373.7 RACHEL 2.0 mcg/mL: AUC/RACHEL: 280.3
--- NOTE | 2025-03-07 08:28 | PC.NURSE ---
Pt. alert and orientated x 4. Pt. on room air. c.o nausea and dry heaves. Every time pt. awakens from sleep she is retching and dry heaving. Pt. weak and frail. unable to help herself. too weak to push the help button on the remote.. Pt. was checked on frequently throughout the night. Pt. received Zofran for nausea. Purewick in place. Pt. on clear liquid diet. Pt. slept when not awake and retching.Pt. unable to feed herself or turn by self. she states that her takes care of her. Personal items and call posadas in reach.
[2025-03-07 09:39] LABS: Lymphocytes % 3 % (10-50); Monocytes % 6 % (2-9); Neutrophils % 91 % (42-76); Platelet Estimate Normal; RBC Morphology Normal; Total Cells Counted 100
[2025-03-07] MEDS: MAGNESIUM SULFATE IN WATER 2 GM/50 ML PIGGYBACK IV ×3 (09:39→14:36)
[2025-03-07] MEDS: ROPIVACAINE 0.5% 30ML VIAL 150 MG (10:47)
[2025-03-07] MEDS: LIDOCAINE 1% 20ML MDV 20 ML (10:48)
[2025-03-07] MEDS: CLINDAMYCIN PHOSPHATE/D5W 900 MG/50 ML PIGGYBACK 20 MG (10:49)
--- NOTE | 2025-03-07 10:54 | EXP.ANES.CKL ---
[facility] Disclaimer: The information contained in this section may have been updated after the patient was seen, as this information can be updated by other users. Medical History (Updated 03/06/25 @ 14:49 by Gary Fischer MD) Hyperglycemia Chest pain Diabetes mellitus Elbow fracture, right Malignant essential hypertension Hypertensive emergency History of recent fall Rhabdomyolysis PSVT (paroxysmal supraventricular tachycardia) Open fracture ankle, trimalleolar Cataract Femur fracture, right Femur fracture, left Anxiety Anemia Diabetes CAD (coronary artery disease) HLD (hyperlipidemia) HTN (hypertension) Surgical History Hx of colonoscopy Social History Smoking Status: Never smoker alcohol intake: never substance use type: denies use current occupational status: retired and disabled Travel in the last 8 weeks?: None Have you lived/traveled outside [place] in past 30 days?: No Contact w/someone who lives/traveled outside US past 30 days?: No Exposure to someone with infectious disease in past 14 days?: No Do you have a fever (greater than 100.4 F or 38 C)?: No Have you tested positive for COVID-19?: No Exposed to someone with COVID-19 in past 14 days?: No Do you have a sore throat?: No Do you have a cough?: No Do you have any weakness?: No Do you have any diarrhea?: Yes Are you experiencing any unusual bleeding?: No Do you have any muscle aches/pain?: No Do you have any abdominal pain?: No Are you experiencing loss of taste or smell?: No [facility] Anesthesia Checklist Patient Identification Patient Identification: Arm Band Structural Data Admitted From: Inpatient Planned Operative Procedure/s: Laparoscopic Cholecystectomy Consent for Planned Operative Procedure(s) Verified: Yes Verified Documents: Surgical Consent and History and Physical NPO Status Verified Time NPO: 00:00 Additional verifications Anesthesia Reactions: No Airway Assessment Mallampati Score:: Class II C-Spine Mobility Assessed: Yes TMJ Mobility Assessed: Yes Dentition: Edentulous Neurological Assessment Level of Consciousness: Awake, Alert and Appropriate Anesthesia Plan Anesthesia Risk discussed: Yes Anesthesia Plan: Verified ASA Class: III Anesthesia Type: General
--- NOTE | 2025-03-07 12:21 | P.OP_ITS ---
Date of procedure: 03/07/25 Pre-op Diagnosis:: Acute cholecystitis Post-op Diagnosis:: Same Procedure performed:: Laparoscopic cholecystectomy Surgeon:: Anthony Freedman MD Anesthesia: CONSTANTINO Estimated blood loss (mL): 25 Operative findings:: She had a significantly distended thickened acute gallbladder. There was significant acute on chronic cholecystitis. Initial delineation of the anatomy of the cystic triangle is rather difficult due to the acute on chronic inflammation. There is a moderate stone in the neck of the gallbladder. Operative note:: Consent was obtained patient was taken to the operating room. She was positioned in supine position. General anesthesia was induced via endotracheal tube. Abdomen was prepped and draped in the standard surgical fashion. Infraumbilical skin incision was made and while performing abdominal wall lift Veress needle was inserted. CO2 pneumoperitoneum was achieved to 15 mmHg. 11 mm optical trocar was inserted at the umbilicus. Intraperitoneal contents were visualized. She had somewhat of a phlegmon like response in the right upper quadrant. She was positioned in reverse Trendelenburg left side down. Two 5 mm trocars were inserted in the right upper abdomen. 11 mm trocar was inserted in the epigastrium. Omentum was adherent to the gallbladder and this was swept inferiorly as there were some acute inflammatory adhesions of omentum to the gallbladder. Gallbladder was identified and found to be acutely inflamed and somewhat hemorrhagic with early signs of necrosis. It was markedly tense and distended. Laparoscopic needle aspirator was inserted and the gallbladder was a spirated of thick bile. Gallbladder was grasped and retracted anteriorly and superiorly over the dome of the liver. Delineation of the structures of the cystic triangle were difficult due to acute inflammation and fatty infiltration around the neck of the gallbladder. Very prolonged dissection was carried out with mostly blunt dissection and ultimately identifying cystic duct and cystic artery. Cystic duct was isolated, multiply clipped, and sharply divided. Cystic artery was carefully coagulated with daniel ultrasonic harmonic fadi and divided. Gallbladder was dissected free from the liver in a retrograde fashion using Daniel ultrasonic harmonic fadi. Gallbladder was placed within an Endo Catch retrieval device removed from the peritoneal cavity via the umbilical trocar site which required some extension of the fascial incision for delivery. Some use of electrocautery was used on the gallbladder fossa for assurance of hemostasis. Gallbladder fossa and perihepatic space was irrigated and aspirated until clear. Trocars were then removed the CO2 pneumoperitoneum was evacuated. Fascia at the umbilicus was closed with multiple interrupted 0 Vicryl sutures. Local anesthetic was infiltrated. Skin incisions were closed with 4-0 Monocryl in a subcuticular fashion. Steri-Strips and dressings were applied. Condition: stable Disposition: PACU Complications:: None immediately apparent
--- NOTE | 2025-03-07 12:29 | P.PNANES_ITS ---
[facility] Anesthesia Record Part I Anesthesia Record I Intake, IV Amount: 1,200 Hydration: Adequate Estimated blood loss (mL): 10 Urine output (mL): 150 Blood Products used (#): none Blood Pressure: 119/52 SaO2: 98 Pulse Rate: 85 Airway Patency: Patent Respiratory Rate: 16 Temperature: 98.2 F Patient is:: Drowsy and Stable Stable to PACU at:: 12:25
[2025-03-07 12:48] LABS: Microscopic,Cath URINE MICROSCOPIC (MICROSCOPIC)
[2025-03-07 12:51] LABS: POC Glucose,Bedside 235 (70-110)
[2025-03-07 12:54] LABS: Appearance,Urine/Cath CLOUDY (Clear); Bilirubin,Cath Negative (Negative); Blood, Urine/Cath 2+ (Negative); Color,Urine/Cath YELLOW (Yellow); Glucose,Urine/Cath (UA) 3+ (Negative); Ketones,Urine/Cath TRACE (Negative); Leukocyte Esterase,Cath 1+ (Negative); Nitrate,Cath Negative (Negative); PH,Urine/Cath 5.5 (5.0-8.5); Protein,Urine/Cath 1+ (Negative); Urobilinogen,Cath 0.2 EU/dl (0.2)
--- NOTE | 2025-03-07 12:56 | SUR.PHASEI ---
1255- detailed report given to oumar in pt room. Pt left in stable condition. VSS dressing CDI, family at bs
[2025-03-07] MEDS: VANCOMYCIN/WATER FOR INJ (PEG) 1.25 GM/250 ML PIGGYBACK IV (12:59)
[2025-03-07 13:05] LABS: Bacteria,Urine/Cath 1+ /lpf; Yeast,Urine/Cath 1+
[2025-03-07] MEDS: BISOPROLOL 5MG TABLET 10 MG PO (13:20)
[2025-03-07] MEDS: DOXAZOSIN 4MG TAB 4 MG PO (13:20)
[2025-03-07] MEDS: KCl 10mEq/100ml 100 ML 100 MEQ IV ×2 (13:25→15:15)
[2025-03-07] MEDS: LEVOFLOXACIN/D5W 750 MG/150 ML 750 MG/150 ML PIGGYBACK 100 MG IV (15:15)
--- NOTE | 2025-03-07 15:32 | PC.NURSE ---
Post op sites clean dry and intact, vs stable and patient remained on room air. Petty in place, instructed by md to keep for today and remove tomorrow. No nausea or vomiting since surgery.
--- NOTE | 2025-03-07 16:06 | P.PN_ITS ---
Subjective *Date: 03/07/25 *Time: 17:59 Interval history: Patient still complaining of some abdominal pain. Intermittent nausea but no significant vomiting. Afebrile. Stable on room air. at bedside, discussed need for cholecystectomy today. He is agreeable. Electrolyte distur bances noted this morning. Replacing aggressively. Discussed case with surgery, going for cholecystectomy Medical Exam Vital signs and Labs for Last 24 Hours: Vital Signs Temp Pulse Pulse Resp BP BP Pulse Ox 03/07/25 15:05 03/07/25 14:25 98.1 F 83 16 127/54 L 96 03/07/25 13:55 98.1 F 87 16 131/87 96 03/07/25 13:40 98.0 F 84 16 135/60 96 03/07/25 13:25 98.2 F 83 16 148/60 H 96 03/07/25 13:10 98.2 F 86 16 154/61 H 97 03/07/25 13:00 03/07/25 12:55 97.9 F 84 16 144/60 H 97 03/07/25 12:55 98.2 F 82 16 127/58 L 98 03/07/25 12:45 98.2 F 85 16 126/56 L 98 03/07/25 12:35 98.2 F 85 16 120/57 L 98 03/07/25 12:31 98.2 F 85 16 119/52 L 03/07/25 12:25 98.2 F 89 16 119/52 L 98 03/07/25 09:54 97.9 F 94 H 16 206/78 H 99 03/07/25 09:15 03/07/25 08:00 97.9 F 94 H 16 206/78 H 99 03/07/25 07:50 03/07/25 07:00 03/07/25 05:00 03/07/25 04:23 97.6 F 97 H 14 145/78 H 97 03/07/25 03:00 03/07/25 01:00 03/06/25 23:00 03/06/25 21:00 03/06/25 20:00 99 03/06/25 19:49 98.3 F 83 17 179/80 H 99 03/06/25 18:09 03/06/25 16:10 O2 Del Method 03/07/25 15:05 Room Air 03/07/25 14:25 Room Air 03/07/25 13:55 Room Air 03/07/25 13:40 Room Air 03/07/25 13:25 Room Air 03/07/25 13:10 Room Air 03/07/25 13:00 Room Air 03/07/25 12:55 Room Air 03/07/25 12:55 Room Air 03/07/25 12:45 Room Air 03/07/25 12:35 Room Air 03/07/25 12:31 03/07/25 12:25 Room Air 03/07/25 09:54 Room Air 03/07/25 09:15 Room Air 03/07/25 08:00 Room Air 03/07/25 07:50 Room Air 03/07/25 07:00 Room Air 03/07/25 05:00 Room Air 03/07/25 04:23 03/07/25 03:00 Room Air 03/07/25 01:00 Room Air 03/06/25 23:00 Room Air 03/06/25 21:00 Room Air 03/06/25 20:00 Room Air 03/06/25 19:49 03/06/25 18:09 Room Air 03/06/25 16:10 Room Air Intake and Output 03/07/25 03/07/25 03/07/25 07:59 15:59 23:59 Intake Total 1800 / 3000 1200 / 3000 Output Total 850 / 850 Balance 950 / 2150 1200 / 2150 Intake: Intake, Total IV Amount 1800 / 3000 1200 / 3000 Lactated Ringers 1000ML 1,000 1700 / 1700 ml @ 100 mls/hr IV .Q10H SKYLAR Rx #:[id number] Metronidaz/Sod Chl 500 mg In 100 / 100 100 ml @ 100 mls/hr IV Q8H SKYLAR Rx#:[id number] Output: Output, Urine Amount 850 / 850 Other: Number of Unmeasured Voids 0 0 Weight 67.67 kg 67.67 kg Patient Weight 03/07/25 23:59 Weight 67.67 kg Laboratory Results - last 24 hr 03/06/25 18:10: WBC 29.4 H*, RBC 3.37 L, Hgb 9.9 L, Hct 29.8 L, MCV 88.4, MCH 29.4, MCHC 33.2, RDW 15.4, Plt Count 243, MPV 9.7, Neut % (Auto) 83.4 H, Lymph % (Auto) 4.0 L, Bureau % (Auto) 10.1 H, Eos % (Auto) 0.0 L, Baso % (Auto) 0.2, Neut # (Auto) 24.5 H, Lymph # (Auto) 1.2, Bureau # (Auto) 3.0 H, Eos # (Auto) 0.0, Baso # (Auto) 0.1, Total Counted 100, Neutrophils % (Manual) 88 H, Lymphocytes % (Manual) 4 L, Monocytes % (Manual) 8, Platelet Estimate Normal, Poikilocytosis 1+, Ovalocytes 1+, [place] Cells 1+, Sodium 137, Potassium 3.1 L, Chloride 108 H, Carbon Dioxide 20 L, Anion Gap 12.1, BUN 34 H, Creatinine 0.70 D, Estimated Creat Clear 47, Estimated GFR 82, Est GFR ([facility] Amer) 99 D, Glucose 165 H, Calcium 8.7 03/06/25 21:51: POC Glucose 222 H 03/07/25 00:26: Sodium 137, Potassium 3.0 L, Chloride 107, Carbon Dioxide 23, Anion Gap 10.0, BUN 28 H, Creatinine 0.70, Estimated Creat Clear 47, Estimated GFR 82, Est GFR ( Amer) 99, Glucose 186 H, Calcium 8.8 03/07/25 06:05: POC Glucose 228 H 03/07/25 06:30: WBC 33.6 H*, RBC 3.79 L, Hgb 10.8 L, Hct 33.7 L, MCV 88.9, MCH 28.5, MCHC 32.0, RDW 15.3, Plt Count 213, MPV 9.9, Neut % (Auto) 84.4 H, Lymph % (Auto) 3.6 L, Bureau % (Auto) 8.6, Eos % (Auto) 0.0 L, Baso % (Auto) 0.2, Neut # (Auto) 28.4 H, Lymph # (Auto) 1.2, Bureau # (Auto) 2.9 H, Eos # (Auto) 0.0, Baso # (Auto) 0.1, Total Counted 100, Neutrophils % (Manual) 91 H, Lymphocytes % (Man ual) 3 L, Monocytes % (Manual) 6, Platelet Estimate Normal, RBC Morphology Normal, Magnesium 1.4 L D 03/07/25 10:15: Urine Color Yellow, Urine Appearance Cloudy, Urine pH 5.5, Ur Specific [place] 1.010, Urine Protein 1+, Urine Glucose (UA) 3+, Urine Ketones Trace, Urine Blood 2+, Urine Nitrate Negative, Urine Bilirubin Negative, Urine Urobilinogen 0.2, Ur Leukocyte Esterase 1+ A, Urine RBC 5-10, Urine WBC 10-20 A, Ur Squamous Epith Cells 3-5, Urine Bacteria 1+, Urine Yeast 1+ 03/07/25 12:32: POC Glucose 235 H I & O for Labs for Last 24 Hours: Intake & Output 03/04/25 03/05/25 03/06/25 03/07/25 23:59 23:59 23:59 23:59 Intake Total 2950 / 4750 3000 / 3000 Output Total 0 / 0 1600 / 1600 850 / 850 Balance 0 / 1250 1350 / 3150 2150 / 2150 Weight 68.039 kg 61.87 kg 67.67 kg Microbiology Reports for the Last 24 Hours: Microbiology 03/05/25 18:14 Blood Blood Culture - Preliminary NO GROWTH AFTER 24 HOURS 03/05/25 18:16 Blood Blood Culture - Preliminary NO GROWTH AFTER 24 HOURS Constitutional: Present mild distress, thin, chronically ill appearing and cooperative Head: Present atraumatic and normocephalic Respiratory: Present normal respiratory effort; Absent rhonchi, wheezes or crackles Cardiac: Present Reg Rate and Rhythm GI: Present soft, tenderness (Positive Marr sign right upper quadrant) and normal bowel sounds; Absent distention Extremities: Present normal inspection and full ROM Skin: Present intact; Absent erythema Neuro: Present Grossly Intact, alert and awake; Absent moves all extremities Comment:: Oriented to self only. Assessment and Plan *Assessment and plan (1) Cholelithiasis and acute cholecystitis with obstruction: Status: Acute Category: Medical Code(s): K80.01 - Calculus of gallbladder with acute cholecystitis with obstruction (2) DKA (diabetic ketoacidosis): Status: Acute Category: Medical Code(s): E11.10 - Type 2 diabetes mellitus with ketoacidosis without coma (3) High anion gap metabolic acidosis: Status: Acute Category: Medical Code(s): E87.29 - Other acidosis (4) Vomiting: Status: Acute Qualifiers: Migraine intractability: intractable Category: Medical Code(s): R11.10 - Vomiting, unspecified (5) Dehydration: Status: Acute Category: Medical Code(s): E86.0 - Dehydration (6) Colitis: Status: Acute Category: Medical Code(s): K52.9 - Noninfective gastroenteritis and colitis, unspecified (7) Esophagitis: Status: Acute Category: Medical Code(s): K20.90 - Esophagitis, unspecified without bleeding (8) Walking difficulty due to ankle and foot: Status: Acute Category: Medical Code(s): R26.2 - Difficulty in walking, not elsewhere classified (9) Functional quadriplegia: Status: Acute Category: Medical Code(s): R53.2 - Functional quadriplegia (10) Hypomagnesemia: Status: Acute Category: Medical Code(s): E83.42 - Hypomagnesemia (11) Hypokalemia: Status: Acute Category: Medical Code(s): E87.6 - Hypokalemia Plan 74-year-old female who is bedbound and has not walked in over 2 years. Requires [employer] lift at home and support of family. Presented with nausea, vomiting, abdominal pain. Admitted for further management of metabolic acidosis and suspected cholecystitis. On further review of labs this morning, concern for normoglycemic DKA due to SGLT2 use in conjunction with cholecystitis. Initiated on insulin. Gap closed this morning. Still having electrolyte disturbances, replacing aggressively. Ultrasound obtained today showing cholecystitis and gallstone in neck of gallbladder. Decision made today to take patient for surgery. Discussed case with surgery, planning for cholecystectomy. Condition serious. Continues to require inpatient management. Problems addressed as follows: Nausea and vomiting HEATHER Sepsis Cholecystitis DKA Suspected UTI - High suspicion for normoglycemic DKA given glucose of 244, anion gap of 23, ketones in her urine, low bicarb. Patient is on SGLT2. -Labs doing better today. Gap closed. Glucose 186 this morning. Bicarb 23. Potassium 3.0 and magnesium 1.4. Replacing aggressively with 3 runs of 2 g magnesium and p.o. potassium today. Continue protocol replacement - Continue insulin glargine 15 units daily with sliding scale insulin and finger sticks ACHS -White count worse today at 33.6, hemoglobin 10.8. - Repeat CBC, CMP, magnesium ordered for the morning -Ultrasound obtained today, per my review has distended gallbladder with thickened gallbladder wall and stone in gallbladder neck. -Discussed case with surgery, going for cholecystectomy today. - Continue broad-spectrum antibiotics with Levaquin and Flagyl renally dosed due to penicillin allergy - Blood cultures remain negative, urine culture growing gram-negative rods greater than 100K CFU - Zofran as needed every 6 hours 4 mg IV for nausea/vomiting - A1c 7.4, Holding home metformin and SGLT2 due to acidosis - Kidney function better today with BUN 28, creatinine 0.7 Troponin 0.05, stable. Suspect type II NSTEMI from stress of DKA and nausea and vomiting. Hypertension: Normotensive at this time. Will hold bisoprolol, lisinopril, diltiazem, doxazosin. Consider resuming after surgery in the morning Functional quadriplegia: Patient is nonambulatory, has not walked in 2 years. Uses [employer] lift to get around at home. Is at baseline function. 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 Needs staff to feed her. Fully dependent for all ADLs PT evaluated, at baseline. No recommendations for placement at this time. Full code Full liquid diet after surgery Consider resuming anticoagulation tomorrow due to surgery today
[2025-03-07 16:11] LABS: POC Glucose,Bedside 236 (70-110)
[2025-03-07 20:56] LABS: POC Glucose,Bedside 182 (70-110)
[2025-03-07] MEDS: MIRTAZAPINE 15 MG TABLET PO (20:57)
[2025-03-08] MEDS: METRONIDAZ/SOD CHL 500 MG/100 ML PIGGYBACK 100 MG IV ×3 (02:40→18:52)
[2025-03-08] MEDS: DEXTROSE 5%-LACTATED RINGERS 1,000 ML 100 ML IV (02:45)
[2025-03-08 04:00] VITALS: BMI 27.3
[2025-03-08 06:00] LABS: POC Glucose,Bedside 150 (70-110)
--- NOTE | 2025-03-08 06:33 | PC.NURSE ---
Pt. is alert and orientated x 4. Pt. on room air. Pt. post op cholecystectomy. Surgical LAP sites to abdomen clean, dry, intact. Pt. having minimal pain. No nausea or vomiting. IV fluids infusing. Pt. had swelling to right hand overnight. coban dressing was on hand, removed, swelling decreased some. Pt. can wiggle fingers but has not much functional use of hands, unable to grasp items. Pt. tolerated PO liquids post op. Personal items and call posadas in use.
[2025-03-08 06:50] LABS: Basophils % 0.1 % (0.1-2.0); Hematocrit 24.8 % (37.0-47.0); Immature Granulocytes # 0.17 10^3uL; Immature Granulocytes % 1.1 %; Lymphocytes # 1.1 K/mm3 (0.7-4.5); Lymphocytes % 7.2 % (10-50); Mean Corpuscular HGB Conc 32.3 g/dL (31.8-35.4); Mean Corpuscular Hemoglobin 28.7 pg (27.0-31.2); Mean Corpuscular Volume 88.9 fl (81-99); Mean Platelet Volume 10.2 fl (7.4-10.4); Monocytes # 1.2 K/mm3 (0.1-1.0); Monocytes % 7.8 % (1.7-9.3); Neutrophils # 13.1 K/mm3 (1.8-7.8); Neutrophils % 83.8 % (37.0-80.0); Nucleated Red Blood Cells # 0 10^3/uL; Nucleated Red Blood Cells % 0 %; Platelet Count 189 K/mm3 (142-424); Red Blood Count 2.79 M/mm3 (4.20-5.40); Red Cell Distribution Width 15.6 % (11.5-17.5); Red Cell Distribution Width-SD 51.5 fL; White Blood Count 15.6 K/mm3 (4.8-10.8)
--- NOTE | 2025-03-08 06:52 | EXP.SURG.PN ---
Subjective Patient reports: no new complaints, feels better and pain is less Narrative: Patient feels much better. Exam Data for Last 24 hours Vital signs and Labs for Last 24 Hours: Temp Pulse Resp BP Pulse Ox O2 Del Method 98.6 F 88 14 151/67 H 93 L Room Air 03/07/25 23:51 03/07/25 23:51 03/07/25 23:51 03/07/25 23:51 03/07/25 23:51 03/08/25 05:00 Laboratory Results - last 24 hr 03/07/25 06:30: WBC 33.6 H*, RBC 3.79 L, Hgb 10.8 L, Hct 33.7 L, MCV 88.9, MCH 28.5, MCHC 32.0, RDW 15.3, Plt Count 213, MPV 9.9, Neut % (Auto) 84.4 H, Lymph % (Auto) 3.6 L, [place] % (Auto) 8.6, Eos % (Auto) 0.0 L, Baso % (Auto) 0.2, Neut # (Auto) 28.4 H, Lymph # (Auto) 1.2, [place] # (Auto) 2.9 H, Eos # (Auto) 0.0, Baso # (Auto) 0.1, Total Counted 100, Neutrophils % (Manual) 91 H, Lymphocytes % (Manual) 3 L, Monocytes % (Manual) 6, Platelet Estimate Normal, RBC Morphology Normal, Magnesium 1.4 L D 03/07/25 10:15: Urine Color Yellow, Urine Appearance Cloudy, Urine pH 5.5, Ur Specific [place] 1.010, Urine Protein 1+, Urine Glucose (UA) 3+, Urine Ketones Trace, Urine Blood 2+, Urine Nitrate Negative, Urine Bilirubin Negative, Urine Urobilinogen 0.2, Ur Leukocyte Esterase 1+ A, Urine RBC 5-10, Urine WBC 10-20 A, Ur Squamous Epith Cells 3-5, Urine Bacteria 1+, Urine Yeast 1+ 03/07/25 12:32: POC Glucose 235 H 03/07/25 16:04: POC Glucose 236 H 03/07/25 20:39: POC Glucose 182 H 03/08/25 05:44: POC Glucose 150 H I & O for Last 24 hours: Intake & Output 03/05/25 03/06/25 03/07/2503/08/25 11:59 11:59 11:59 11:59 Intake Total 1250 / 1250 3500 / 3500 2270 / 2270 Output Total 350 / 350 2100 / 2100 2250 / 2250 Balance 900 / 900 1400 / 1400 Weight 136 lb 6.4 oz 149 lb 3 oz 164 lb 9 oz Microbiology Reports for the Last 24 Hours: Microbiology 03/05/25 18:14 Blood Blood Culture - Preliminary NO GROWTH AFTER 48 HOURS 03/05/25 18:16 Blood Blood Culture - Preliminary NO GROWTH AFTER 48 HOURS *Routine Abdominal Exam Abdominal: Present soft; Absent tenderness Progress Note: A&P Assessment and plan (1) Cholelithiasis and acute cholecystitis with obstruction: Status: Acute Assessment and plan: Follow-up labs this morning. (2) DKA (diabetic ketoacidosis): Status: Acute (3) High anion gap metabolic acidosis: Status: Acute (4) Vomiting: Status: Acute (5) Dehydration: Status: Acute (6) Colitis: Status: Acute (7) Esophagitis: Status: Acute (8) Walking difficulty due to ankle and foot: Status: Acute (9) Functional quadriplegia: Status: Acute (10) Hypomagnesemia: Status: Acute (11) Hypokalemia: Status: Acute
[2025-03-08 07:12] LABS: Albumin Level 2.2 g/dl (3.5-5.0); Chloride 112 mmol/L (98-107); Sodium 139 mmol/L (136-145)
[2025-03-08 07:13] LABS: Potassium 3.6 mmoL/L (3.5-5.1)
[2025-03-08 07:15] LABS: Alanine Aminotransferase 27 U/L (12-78); Albumin/Globulin Ratio 0.8 (1.1-1.8); Alkaline Phosphatase 106 U/L (38-126); Anion Gap 8.6 mEq/L (5-15); Aspartate Amino Transferase 39 U/L (14-36); Bilirubin,Total 0.3 mg/dl (0.2-1.3); Blood Urea Nitrogen 26 mg/dl (7-17); Carbon Dioxide 22 mmol/L (22.0-30.0); Creatinine Clearance Estimated 57 mL/min (50-200); Estimated Glomerular Filt Rate 70 ml/min (>60); GFR (African American) 85 ML/MIN (>60); Globulin 2.6 g/dL (1.3-3.2); Total Protein,Serum 4.8 g/dl (6.3-8.2)
[2025-03-08 07:16] LABS: Calcium 7.7 mg/dl (8.4-10.2); Glucose 136 mg/dl (74-100); Magnesium 2.9 mg/dl (1.6-2.3)
--- NOTE | 2025-03-08 07:36 | P.PNANES_ITS ---
[facility] Anesthesia Record Part II Anesthesia Record Part II Discharge Time: 12:55 Destination: Medical Surgical Department PACU nurse assessment reviewed?: Yes Patient Condition:: Good Anesthesia Complications:: None Swallowing reflex intact?: Yes Airway Patency: Patent Cyanosis?: No Blood Pressure: 127/58 SaO2: 98 Respiratory Rate: 16 Pulse Rate: 82 Temperature: 98.2 F Mental Status: Alert & Oriented Pain level:: 0 Nausea and/or vomitting:: None Intake, IV Amount: 0 Hydration: Adequate
[2025-03-08 07:37] VITALS: BP 127/58; PULSE 82; RESP 16; TEMP 36.8; O2SAT 98
[2025-03-08 07:52] LABS: Hemoglobin 8.1 g/dL (12.2-16.2)
[2025-03-08 08:00] VITALS: BP 139/63; PULSE 88; RESP 16; TEMP 37.4; O2SAT 91
--- NOTE | 2025-03-08 08:21 | EXP.POD.CONS ---
History of Present Illness *Admission Date: 03/05/25 *History of present illness: Patient is a 74-year-old female from [facility] who presented to the emergency department overnight after she had developed nausea and vomiting beginning approximately 10 PM on 03/04/2025. There was initial concern for coffee-ground emesis. Patient initially denied any abdominal pain but she is somewhat of a poor historian. Evaluation in the emergency department revealed an appreciable leukocytosis of 29,300. H&H within reasonable limits. Liver function tests essentially normal. She was found to have notable hyperglycemia with elevated anion gap and diminished bicarbonate. She was empirically started on levofloxacin. CT scan of the abdomen and pelvis revealed findings suspicious for cholecystitis? 14 mm lesion in the gallbladder neck is most likely a sludge ball or noncalcified stone although an enhancing solid lesion might produce this appearance, recommend ultrasound assessment with Doppler evaluation to exclude internal vascularity. There was also possible colitis versus nondistended colon as well as 14 mm incidental right adrenal nodule. Since admission her white blood cell count remains elevated at 28,000. Hemoglobin is 9.9. She has 92% neutrophils. 03/08/25 Podiatry consulted for 74 yr.old female new patient admitted through the ER for N/V and abdominal pain. She was also having pain from her RH nail lifting off. The patient is a diabetic and there does not appear to be any drainage or SOI from this site. Plan to just trim all her nails and trim the Right hallux back to keep from catching on anything until it can grow back out. [facility] Disclaimer: The information contained in this section may have been updated after the patient was seen, as this information can be updated by other users. Medical History (Updated 03/08/25 @ 08:25 by Karen Oates APRN) Hyperglycemia Chest pain Diabetes mellitus Elbow fracture, right Malignant essential hypertension Hypertensive emergency History of recent fall Rhabdomyolysis PSVT (paroxysmal supraventricular tachycardia) Open fracture ankle, trimalleolar Cataract Femur fracture, right Femur fracture, left Anxiety Anemia Diabetes CAD (coronary artery disease) HLD (hyperlipidemia) HTN (hypertension) Surgical History Hx of colonoscopy Social History Smoking Status: Never smoker alcohol intake: never substance use type: denies use current occupational status: retired and disabled Travel in the last 8 weeks?: None Have you lived/traveled outside US in past 30 days?: No Contact w/someone who lives/traveled outside US past 30 days?: No Exposure to someone with infectious disease in past 14 days?: No Do you have a fever (greater than 100.4 F or 38 C)?: No Have you tested positive for COVID-19?: No Exposed to someone with COVID-19 in past 14 days?: No Do you have a sore throat?: No Do you have a cough?: No Do you have any weakness?: No Do you have any diarrhea?: Yes Are you experiencing any unusual bleeding?: No Do you have any muscle aches/pain?: No Do you have any abdominal pain?: No Are you experiencing loss of taste or smell?: No Review of Systems *Neurologic Neurologic: Reports as per [facility] Meds Home Medications and Allergies Home Medications ?Medication ?Instructions ?Recorded ?Confirmed ?Type aspirin 81 mg chewable tablet 81 mg PO DAILY CAD 12/30/17 03/06/25 History atorvastatin 40 mg tablet 40 mg PO HS 05/13/18 03/06/25 History lisinopril 40 mg tablet 40 mg PO BID BLOOD PRESSURE 05/27/18 03/06/25 History mirtazapine 15 mg tablet 15 mg PO HS 07/04/21 03/06/25 History alendronate 70 mg tablet 70 mg PO WEEKLY 03/06/25 03/06/25 History bisoprolol fumarate 10 mg tablet 10 mg PO DAILY 03/06/25 03/06/25 History cetirizine 10 mg tablet 10 mg PO DAILY 03/06/25 03/06/25 History dapagliflozin propanediol 10 mg 10 mg PO DAILY 03/06/25 03/06/25 History tablet (Farxiga) diltiazem HCl 90 mg tablet 90 mg PO DAILY 03/06/25 03/06/25 History doxazosin 4 mg tablet 4 mg PO DAILY 03/06/25 03/06/25 History ferrous sulfate 325 mg (65 mg 325 mg PO DAILY 03/06/25 03/06/25 History iron) tablet (FeroSul) insulin glargine 100 25 unit SQ DAILY 03/06/25 03/06/25 History unit-lixisenatide 33 mcg/mL subcutaneous pen (Soliqua 100/33) metformin 1,000 mg tablet 1,000 mg PO DAILY 03/06/25 03/06/25 History New Prescriptions to Start Prescriptions: Allergies Allergy/AdvReac Type Severity Reaction Status Date / Time Penicillins Allergy Hives Verified 03/05/25 17:31 Sulfa (Sulfonamide Allergy Hives Verified 03/05/25 17:31 Antibiotics) Exam (Inpt) Vital signs and Labs for Last 24 Hours: Temp Pulse Resp BP Pulse Ox O2 Del Method 98.6 F 88 16 151/67 H 93 L Room Air 03/07/25 23:51 03/07/25 23:51 03/08/25 07:37 03/07/25 23:51 03/07/25 23:51 03/08/25 07:00 Laboratory Results - last 24 hr 03/07/25 06:30: Total Counted 100, Neutrophils % (Manual) 91 H, Lymphocytes % (Manual) 3 L, Monocytes % (Manual) 6, Platelet Estimate Normal, RBC Morphology Normal 03/07/25 10:15: Urine Color Yellow, Urine Appearance Cloudy, Urine pH 5.5, Ur Specific [place] 1.010, Urine Protein 1+, Urine Glucose (UA) 3+, Urine Ketones Trace, Urine Blood 2+, Urine Nitrate Negative, Urine Bilirubin Negative, Urine Urobilinogen 0.2, Ur Leukocyte Esterase 1+ A, Urine RBC 5-10, Urine WBC 10-20 A, Ur Squamous Epith Cells 3-5, Urine Bacteria 1+, Urine Yeast 1+ 03/07/25 12:32: POC Glucose 235 H 03/07/25 16:04: POC Glucose 236 H 03/07/25 20:39: POC Glucose 182 H 03/08/25 05:32: WBC 15.6 H D, RBC 2.79 L D, Hgb 8.1 L D, Hct 24.8 L, MCV 88.9, MCH 28.7, MCHC 32.3, RDW 15.6, Plt Count 189, MPV 10.2, Neut % (Auto) 83.8 H, Lymph % (Auto) 7.2 L, [place] % (Auto) 7.8, Eos % (Auto) 0.0 L, Baso % (Auto) 0.1, Neut # (Auto) 13.1 H, Lymph # (Auto) 1.1, [place] # (Auto) 1.2 H, Eos # (Auto) 0.0, Baso # (Auto) 0.0, Sodium 139, Potassium 3.6, Chloride 112 H, Carbon Dioxide 22, Anion Gap 8.6, BUN 26 H, Creatinine 0.80, Estimated Creat Clear 57, Estimated GFR 70, Est GFR ( Amer) 85, Glucose 136 H, Calcium 7.7 L, Magnesium 2.9 H D, Total Bilirubin 0.3, AST 39 H, ALT 27 D, Alkaline Phosphatase 106, Total Protein 4.8 L, Albumin 2.2 L, Globulin 2.6, Albumin/Globulin Ratio 0.8 L 03/08/25 05:44: POC Glucose 150 H I & O for Labs for Last 24 Hours: Intake & Output 03/05/25 03/06/25 03/07/25 03/08/25 23:59 23:59 23:59 23:59 Intake Total 2950 / 2950 3950 / 3950 120 / 120 Output Total 0 / 0 1600 / 1600 2550 / 2550 550 / 550 Balance 0 / 0 1350 / 1350 1400 / 1400 -430 / -430 Weight 150 lb 136 lb 6.4 oz 149 lb 2.989 oz 164 lb 9 oz Microbiology Reports for the Last 24 Hours: Microbiology 03/05/25 18:14 Blood Blood Culture - Preliminary NO GROWTH AFTER 48 HOURS 03/05/25 18:16 Blood Blood Culture - Preliminary NO GROWTH AFTER 48 HOURS Constitutional: Present no acute distress and cooperative Head: Present normocephalic Eye: Present as per HPI Neck: Present trachea midline Respiratory: Present normal respiratory effort Cardiac: Present posterior tibial pulses present and pedal pulses present Comments:: S/P 03/07/25-cholecystectomy Rectal (female): Present deferred (female): Present deferred Extremities: Present tenderness (RH nail loose and lifting off at distal tip, trimmed back, it didn't warrant a full removal. ) and normal capillary refill Skin: Present dry and warm Comment:: 03/08/25- Nails are long, thick and brittle when trimmed. Right Hallux nail was lifting up off nail bed, no bleeding or SOI noted. Nail was trimmed back to base of nail with nail nippers. Nails x 10 trimmed at bedside. -Feet are dry and flaking off skin, no ulcers noted Neuro: Present Sensory Function Intact, awake, oriented x 3 and tone normal Comment:: Patient is bed bound, has not ambulated in 3 years due to breaking her legs twice and never completed full round of rehabilitation. -Patient noted sharp sensation when tested at bedside Ankle: bilateral: swelling (Trace b/l ankle edema ) and bilateral: tenderness (nails tender when trimmed) Feet/Toes: right: Ingrown Toenail (RH nail lifiting off, trimmed back to nail bed) and bilateral: nail abnormalities (thick, long, brittle ), bilateral: onychomycosis and bilateral: tenderness (tender with nail trimming due to length) Inspection: Present nail disorder Pulses: L dorsalis pedis pulse: normal, R dorsalis pedis pulse: normal, L posterior tibial pulse: normal and R posterior tibial pulse: normal CFT: normal: CFT Monofilament exam: L great toe: normal, L 3rd toe: normal, L 5th toe: normal, R great toe: normal, R 3rd toe: normal and R 5th toe: normal Pinprick: L great toe: normal and R great toe: normal Results Labs 03/08/25 05:32 03/08/25 05:32 Labs: Abnormal lab results 03/07/25 03/07/25 03/07/25 Range/Units 06:30 10:15 12:32 WBC (4.8-10.8) K/mm3 RBC (4.20-5.40) M/mm3 Hgb (12.2-16.2) g/dL Hct (37.0-47.0) % Neut % (Auto) (37.0-80.0) % Lymph % (Auto) (10-50) % Eos % (Auto) (0.1-12.0) % Neut # (Auto) (1.8-7.8) K/mm3 [place] # (Auto) (0.1-1.0) K/mm3 Neutrophils % (Manual) 91 H (42-76) % Lymphocytes % (Manual) 3 L (10-50) % Chloride (98-107) mmol/L BUN (7-17) mg/dl Glucose (74-100) mg/dl POC Glucose 235 H (70-110) Calcium (8.4-10.2) mg/dl Magnesium (1.6-2.3) mg/dl AST (14-36) U/L Total Protein (6.3-8.2) g/dl Albumin (3.5-5.0) g/dl Albumin/Globulin Ratio (1.1-1.8) Ur Leukocyte Esterase 1+ A (Negative) Urine WBC 10-20 A (0-3) #/hpf 03/07/25 03/07/25 03/08/25 Range/Units 16:04 20:39 05:32 WBC 15.6 H D (4.8-10.8) K/mm3 RBC 2.79 L D (4.20-5.40) M/mm3 Hgb 8.1 L D (12.2-16.2) g/dL Hct 24.8 L (37.0-47.0) % Neut % (Auto) 83.8 H (37.0-80.0) % Lymph % (Auto) 7.2 L (10-50) % Eos % (Auto) 0.0 L (0.1-12.0) % Neut # (Auto) 13.1 H (1.8-7.8) K/mm3 [place] # (Auto) 1.2 H (0.1-1.0) K/mm3 Neutrophils % (Manual) (42-76) % Lymphocytes % (Manual) (10-50) % Chloride 112 H (98-107) mmol/L BUN 26 H (7-17) mg/dl Glucose 136 H (74-100) mg/dl POC Glucose 236 H 182 H (70-110) Calcium 7.7 L (8.4-10.2) mg/dl Magnesium 2.9 H D (1.6-2.3) mg/dl AST 39 H (14-36) U/L Total Protein 4.8 L (6.3-8.2) g/dl Albumin 2.2 L (3.5-5.0) g/dl Albumin/Globulin Ratio 0.8 L (1.1-1.8) Ur Leukocyte Esterase (Negative) Urine WBC (0-3) #/hpf 03/08/25 Range/Units 05:44 WBC (4.8-10.8) K/mm3 RBC (4.20-5.40) M/mm3 Hgb (12.2-16.2) g/dL Hct (37.0-47.0) % Neut % (Auto) (37.0-80.0) % Lymph % (Auto) (10-50) % Eos % (Auto) (0.1-12.0) % Neut # (Auto) (1.8-7.8) K/mm3 [place] # (Auto) (0.1-1.0) K/mm3 Neutrophils % (Manual) (42-76) % Lymphocytes % (Manual) (10-50) % Chloride (98-107) mmol/L BUN (7-17) mg/dl Glucose (74-100) mg/dl POC Glucose 150 H (70-110) Calcium (8.4-10.2) mg/dl Magnesium (1.6-2.3) mg/dl AST (14-36) U/L Total Protein (6.3-8.2) g/dl Albumin (3.5-5.0) g/dl Albumin/Globulin Ratio (1.1-1.8) Ur Leukocyte Esterase (Negative) Urine WBC (0-3) #/hpf H & H 03/05/25 03/06/25 03/06/25 Range/Units 17:32 06:00 18:10 Hgb 12.2 9.9 L D 9.9 L (12.2-16.2) g/dL Hct 36.9 L 31.1 L 29.8 L (37.0-47.0) % 03/07/25 03/08/25 Range/Units 06:30 05:32 Hgb 10.8 L 8.1 L D (12.2-16.2) g/dL Hct 33.7 L 24.8 L (37.0-47.0) % Coagulation 03/05/25 Range/Units 17:32 INR 1.11 H (0.9-1.1) All other labs normal. Assessment and Plan *Assessment and plan (1) Dystrophia unguium: Status: Acute Category: Medical Code(s): L60.3 - Nail dystrophy (2) Onychomycosis: Status: Acute Category: Medical Code(s): B35.1 - Tinea unguium (3) Brittle nails: Status: Acute Category: Medical Code(s): L60.3 - Nail dystrophy (4) Discoloration and thickening of nails both feet: Status: Acute Category: Medical Code(s): L60.8 - Other nail disorders (5) Diabetic foot: Status: Acute Category: Medical Code(s): E11.8 - Type 2 diabetes mellitus with unspecified complications Plan 03/08/25 Reviewed Labs: 03/08/25, WBC 15.6, glucose 136 74-year-old female who is bedbound and has not walked in over 2 years. Requires [employer] lift at home and support of family. Presented over the weekend for GI symptoms that ended up with having a cholecystectomy on 03/07/2025. Patient was consulted by podiatry for having some long dystrophic nails and for her Right hallux nail lifting up and causing pain. Onychodystrophy/ Diabetic foot care Plan -Nails were just very long and brittle needing trimmed -Patient is not surgical at this time. -Nails were debrided x?s 10 utilizing manual debridement with a nail nipper. -Patient tolerated the procedure well. -Recommend the use of sherice board to file nails down and keep thinner. -Follow up in 3 months or as needed. -Discussed with patient about starting DFC and routine nail trimming every 3 months; she was interested -Will get her a 3 months follow up scheduled before she gets discharged. -Patient may continue with her diabetic diet -All orders per Dr. Armendariz
[2025-03-08] MEDS: VANCOMYCIN/WATER FOR INJ (PEG) 1.25 GM/250 ML PIGGYBACK IV (08:49)
[2025-03-08] MEDS: BISOPROLOL 5MG TABLET 10 MG PO (08:49)
[2025-03-08] MEDS: DOXAZOSIN 4MG TAB 4 MG PO (08:49)
[2025-03-08] MEDS: INSULIN GLARGINE 100 UNITS/ML 3ML FLEXPEN 15 UNIT SUBCUT (08:52)
[2025-03-08 09:23] LABS: POC Glucose,Bedside 183 (70-110)
[2025-03-08 11:58] LABS: POC Glucose,Bedside 196 (70-110)
[2025-03-08 12:00] VITALS: BP 138/54; PULSE 65; RESP 18; TEMP 37.1; O2SAT 96
[2025-03-08] MEDS: humaLOG 100 UNITS/ML 10ML VIAL (SSI) SUBCUT (12:06)
--- NOTE | 2025-03-08 13:49 | DIET.NUTRFU ---
completed nutrition eval for severe protein malnutrition. Upon interview, patient reported she has meals brought in, but does not always have protein. Based on her chart information her MNA is 12. She is tolerating a full liquid diet, she reports good appetite at home. She is dependent for all ADL's, has been bedbound for approx 3 years, this increased risk for skin breakdown. During interview did review good protein choices and will attach handout with discharge
[2025-03-08] MEDS: LEVOFLOXACIN/D5W 750 MG/150 ML 750 MG/150 ML PIGGYBACK 100 MG IV (13:51)
[2025-03-08 16:00] VITALS: BP 121/45; PULSE 70; RESP 18; TEMP 36.6; O2SAT 96
[2025-03-08 17:35] LABS: POC Glucose,Bedside 91 (70-110)
--- NOTE | 2025-03-08 19:00 | PC.NURSE ---
Pt is A&Ox4. Vital signs stable tolerating room air. Lap sites C/D/I. IV abx infused. Petty d/c. Q2 turn due to pt being bed bound. Tolerating full liquids-pt needs assistance with feeding. No further needs voiced at this time. Call light within reach.
--- NOTE | 2025-03-08 19:38 | EXP.ACUTE.PN ---
Subjective *Date: 03/08/25 *Time: 21:34 Medical Exam Vital signs and Labs for Last 24 Hours: Vital Signs Temp Pulse Resp BP Pulse Ox O2 Del Method 03/08/25 18:55 Room Air 03/08/25 17:00 Room Air 03/08/25 16:00 97.8 F 70 18 121/45 L 96 Room Air 03/08/25 15:00 Room Air 03/08/25 13:00 Room Air 03/08/25 12:00 98.8 F 65 18 138/54 L 96 Room Air 03/08/25 11:00 Room Air 03/08/25 09:00 Room Air 03/08/25 08:00 Room Air 03/08/25 08:00 99.4 F 88 16 139/63 91 L Room Air 03/08/25 07:37 16 03/08/25 07:00 Room Air 03/08/25 05:00 Room Air 03/08/25 03:00 Room Air 03/08/25 01:00 Room Air 03/07/25 23:51 98.6 F 88 14 151/67 H 93 L 03/07/25 23:00 Room Air 03/07/25 21:00 Room Air 03/07/25 20:00 92 L Room Air 03/07/25 20:00 98.0 F 85 14 103/42 L 92 L Intake and Output 03/08/25 03/08/25 03/08/25 07:59 15:59 23:59 Intake Total 120 / 1420 900 / 1420 400 / 1420 Output Total 550 / 1350 800 / 1350 Balance -430 / 70 900 / 70 -400 / 70 Intake: Intake, Oral Amount 120 / 1420 900 / 1420 400 / 1420 Intake, Total IV Amount 0 / 0 Dextrose 5%-Lactated Ringers 1, 0 / 0 000 ml @ 100 mls/hr IV .Q10H [facility] Rx#:[id number] Output: Output, Urine Amount 350 / 1150 800 / 1150 Output, Urine Amount (Catheter) 200 / 200 Petty 200 / 200 Other: Number of Voids 2 Number of Unmeasured Voids 0 1 Weight 74.644 kg Patient Weight 03/08/25 23:59 Weight 74.644 kg Laboratory Results - last 24 hr 03/07/25 20:39: POC Glucose 182 H 03/08/25 05:32: WBC 15.6 H D, RBC 2.79 L D, Hgb 8.1 L D, Hct 24.8 L, MCV 88.9, MCH 28.7, MCHC 32.3, RDW 15.6, Plt Count 189, MPV 10.2, Neut % (Auto) 83.8 H, Lymph % (Auto) 7.2 L, [place] % (Auto) 7.8, Eos % (Auto) 0.0 L, Baso % (Auto) 0.1, Neut # (Auto) 13.1 H, Lymph # (Auto) 1.1, [place] # (Auto) 1.2 H, Eos # (Auto) 0.0, Baso # (Auto) 0.0, Sodium 139, Potassium 3.6, Chloride 112 H, Carbon Dioxide 22, Anion Gap 8.6, BUN 26 H, Creatinine 0.80, Estimated Creat Clear 57, Estimated GFR 70, Est GFR ( Amer) 85, Glucose 136 H, Calcium 7.7 L, Magnesium 2.9 H D, Total Bilirubin 0.3, AST 39 H, ALT 27 D, Alkaline Phosphatase 106, Total Protein 4.8 L, Albumin 2.2 L, Globulin 2.6, Albumin/Globulin Ratio 0.8 L 03/08/25 05:44: POC Glucose 150 H 03/08/25 08:51: POC Glucose 183 H 03/08/25 11:49: POC Glucose 196 H 03/08/25 17:27: POC Glucose 91 I & O for Labs for Last 24 Hours: Intake & Output 03/05/25 03/06/25 03/07/25 03/08/25 23:59 23:59 23:59 23:59 Intake Total 2950 / 4750 3950 / 4070 1420 / 1420 Output Total 0 / 0 1600 / 1600 2550 / 2750 1350 / 1350 Balance 0 / 1250 1350 / 3150 1400 / 1320 70 / 70 Weight 68.039 kg 61.87 kg 67.67 kg 74.644 kg Microbiology Reports for the Last 24 Hours: Microbiology 03/05/25 18:14 Blood Blood Culture - Preliminary NO GROWTH AFTER 48 HOURS 03/05/25 18:16 Blood Blood Culture - Preliminary NO GROWTH AFTER 48 HOURS Constitutional: Present mild distress, thin, chronically ill appearing and cooperative Head: Present atraumatic and normocephalic Respiratory: Present normal respiratory effort; Absent rhonchi, wheezes or crackles Cardiac: Present Reg Rate and Rhythm GI: Present soft, tenderness (Significant improvement from yesterday.) and normal bowel sounds; Absent distention Extremities: Present normal inspection and full ROM Skin: Present intact; Absent erythema Neuro: Present Grossly Intact, alert and awake; Absent moves all extremities Comment:: Oriented to self only. Assessment and Plan *Assessment and plan (1) Cholelithiasis and acute cholecystitis with obstruction: Status: Acute Category: Medical Code(s): K80.01 - Calculus of gallbladder with acute cholecystitis with obstruction (2) DKA (diabetic ketoacidosis): Status: Acute Category: Medical Code(s): E11.10 - Type 2 diabetes mellitus with ketoacidosis without coma (3) High anion gap metabolic acidosis: Status: Acute Category: Medical Code(s): E87.29 - Other acidosis (4) Vomiting: Status: Acute Qualifiers: Migraine intractability: intractable Category: Medical Code(s): R11.10 - Vomiting, unspecified (5) Dehydration: Status: Acute Category: Medical Code(s): E86.0 - Dehydration (6) Colitis: Status: Acute Category: Medical Code(s): K52.9 - Noninfective gastroenteritis and colitis, unspecified (7) Esophagitis: Status: Acute Category: Medical Code(s): K20.90 - Esophagitis, unspecified without bleeding (8) Walking difficulty due to ankle and foot: Status: Acute Category: Medical Code(s): R26.2 - Difficulty in walking, not elsewhere classified (9) Functional quadriplegia: Status: Acute Category: Medical Code(s): R53.2 - Functional quadriplegia (10) Hypomagnesemia: Status: Acute Category: Medical Code(s): E83.42 - Hypomagnesemia (11) Hypokalemia: Status: Acute Category: Medical Code(s): E87.6 - Hypokalemia Plan 74-year-old female who is bedbound and has not walked in over 2 years. Requires [employer] lift at home and support of family. Presented with nausea, vomiting, abdominal pain. Admitted for further management of metabolic acidosis and suspected cholecystitis. On further review of labs this morning, concern for normoglycemic DKA due to SGLT2 use in conjunction with cholecystitis. Initiated on insulin. Gap closed this morning. Still having electrolyte disturbances, replacing aggressively. Ultrasound obtained today showing cholecystitis and gallstone in neck of gallbladder. Cholecystectomy performed 03/07. Doing better today. Advancing diet. Anticipate discharge tomorrow back home with . Problems addressed as follows: Nausea and vomiting HEATHER Sepsis Cholecystitis DKA Suspected UTI - DKA resolved. Glucose 136 this morning. No anion gap. Electrolytes normal with potassium 3.6, magnesium 2.9. - Continue insulin glargine 15 units daily with sliding scale insulin and finger sticks ACHS - White count peaked at 33 yesterday, improved today to 15.6. Repeat CBC, CMP, magnesium ordered for the morning --S/p cholecystectomy yesterday. Doing better today. Gallbladder was inflamed and determined to be definite source of her infection. - Continue broad-spectrum antibiotics with Levaquin and Flagyl renally dosed due to penicillin allergy - Blood cultures remain negative, urine growing gram-negative rods greater than 100K CFU - Zofran as needed every 6 hours 4 mg IV for nausea/vomiting - A1c 7.4, Holding home metformin and SGLT2 due to acidosis - Kidney function better today with BUN 2 6, creatinine 0.8. Troponin 0.05, stable. Suspect type II NSTEMI from stress of DKA and nausea and vomiting. Hypertension: Normotensive at this time. Will hold bisoprolol, lisinopril, diltiazem, doxazosin. Consider resuming tomorrow if blood pressure goes up. Otherwise consider weaning/de-escalating medication burden discharge Functional quadriplegia: Patient is nonambulatory, has not walked in 2 years. Uses [employer] lift to get around at home. Is at baseline function. 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 Needs staff to feed her. Fully dependent for all ADLs PT evaluated, at baseline. No recommendations for placement at this time. Full code Advancing diet
[2025-03-08 20:00] VITALS: BP 139/67; PULSE 72; RESP 16; TEMP 36.6; O2SAT 96; O2SAT 98
[2025-03-08] MEDS: MIRTAZAPINE 15 MG TABLET PO (20:46)
[2025-03-08 22:03] LABS: POC Glucose,Bedside 116 (70-110)
[2025-03-09] VITALS: BP 151/70; PULSE 77; RESP 16; TEMP 36.8; O2SAT 99
[2025-03-09] MEDS: METRONIDAZ/SOD CHL 500 MG/100 ML PIGGYBACK 100 MG IV ×2 (02:32→10:16)
[2025-03-09 04:00] VITALS: BP 126/58; PULSE 78; RESP 16; TEMP 37.1; O2SAT 96; BMI 27.7
--- NOTE | 2025-03-09 04:00 | PC.NURSE ---
Patient is alert and oriented. She was observed to have eyes closed, respirations even and unlabored on room air, and no apparent distress throughout the majority of the night. Patient is very dependent on others for many aspects of her care. Requires assistance during feeding due to difficulty grasping items. She has been repositioned/turned in bed by nursing staff every [address] hours[address] remain in place for VTE prophylaxis. Scheduled medications were administered as appropriately per DEC. Oral medications were administered with applesauce to aid in easier swallowing. Aspiration precautions taken. ACHS glucose checks performed. Lap sites are dressed and remain clean, dry, and intact. Abdomen is soft, non-tender, but puffy upon palpation. Minimal to no abdominal tenderness. Auscultation of her heart, lungs, and bowels were within normal findings. Patient continues to tolerate a full liquid diet. Purewick and brief in place for elimination needs. Patient has not had a bowel movement thus far this shift, but she reports passing gas. At this time, the patient is resting in bed without further complaints. No new needs thus far. Call light within reach.
[2025-03-09 05:23] LABS: HBsAg Screen Negative (Negative); HCV Ab Non Reactive (Non Reactive); Hep A Ab, IGM Negative (Negative); Hep B Core Ab, IgM Negative (Negative)
[2025-03-09 05:48] LABS: POC Glucose,Bedside 74 (70-110)
[2025-03-09 06:37] LABS: Basophils % 0.2 % (0.1-2.0); Eosinophils # 0.2 Kmm3 (0.0-0.4); Eosinophils % 1.7 % (0.1-12.0); Hematocrit 25.5 % (37.0-47.0); Hemoglobin 7.8 g/dL (12.2-16.2); Immature Granulocytes # 0.18 10^3uL; Immature Granulocytes % 1.9 %; Lymphocytes # 1.8 K/mm3 (0.7-4.5); Lymphocytes % 19.2 % (10-50); Mean Corpuscular HGB Conc 30.6 g/dL (31.8-35.4); Mean Corpuscular Hemoglobin 27.7 pg (27.0-31.2); Mean Corpuscular Volume 90.4 fl (81-99); Monocytes # 0.7 K/mm3 (0.1-1.0); Monocytes % 7.4 % (1.7-9.3); Neutrophils # 6.6 K/mm3 (1.8-7.8); Neutrophils % 69.6 % (37.0-80.0); Nucleated Red Blood Cells # 0 10^3/uL; Nucleated Red Blood Cells % 0 %; Platelet Count 189 K/mm3 (142-424); Red Blood Count 2.82 M/mm3 (4.20-5.40); Red Cell Distribution Width-SD 53.8 fL; White Blood Count 9.4 K/mm3 (4.8-10.8)
[2025-03-09 07:09] LABS: Albumin Level 2.2 g/dl (3.5-5.0); Chloride 115 mmol/L (98-107); Potassium 3.7 mmoL/L (3.5-5.1); Sodium 141 mmol/L (136-145)
[2025-03-09 07:11] LABS: Blood Urea Nitrogen 22 mg/dl (7-17); Creatinine Clearance Estimated 58 mL/min (50-200); Estimated Glomerular Filt Rate 70 ml/min (>60); GFR (African American) 85 ML/MIN (>60)
[2025-03-09 07:12] LABS: Alanine Aminotransferase 22 U/L (12-78); Albumin/Globulin Ratio 0.8 (1.1-1.8); Alkaline Phosphatase 100 U/L (38-126); Anion Gap 7.7 mEq/L (5-15); Aspartate Amino Transferase 31 U/L (14-36); Bilirubin,Total 0.2 mg/dl (0.2-1.3); Calcium 7.5 mg/dl (8.4-10.2); Carbon Dioxide 22 mmol/L (22.0-30.0); Globulin 2.6 g/dL (1.3-3.2); Glucose 60 mg/dl (74-100); Magnesium 2.4 mg/dl (1.6-2.3); Total Protein,Serum 4.8 g/dl (6.3-8.2)
--- NOTE | 2025-03-09 07:28 | EXP.SURG.PN ---
Subjective Narrative: Patient without complaints. She does state that she had some phlegm . She has been taking full liquids. Hemoglobin is 7.8. Exam Data for Last 24 hours Vital signs and Labs for Last 24 Hours: Temp Pulse Resp BP Pulse Ox O2 Del Method 98.8 F 78 16 126/58 L 96 Room Air 03/09/25 04:00 03/09/25 04:00 03/09/25 04:00 03/09/25 04:00 03/09/25 04:00 03/09/25 06:30 Laboratory Results - last 24 hr 03/08/25 05:32: WBC 15.6 H D, RBC 2.79 L D, Hgb 8.1 L D, Hct 24.8 L, MCV 88.9, MCH 28.7, MCHC 32.3, RDW 15.6, Plt Count 189, MPV 10.2, Neut % (Auto) 83.8 H, Lymph % (Auto) 7.2 L, [place] % (Auto) 7.8, Eos % (Auto) 0.0 L, Baso % (Auto) 0.1, Neut # (Auto) 13.1 H, Lymph # (Auto) 1.1, [place] # (Auto) 1.2 H, Eos # (Auto) 0.0, Baso # (Auto) 0.0, Sodium 139, Potassium 3.6, Chloride 112 H, Carbon Dioxide 22, Anion Gap 8.6, BUN 26 H, Creatinine 0.80, Estimated Creat Clear 57, Estimated GFR 70, Est GFR ( Amer) 85, Glucose 136 H, Calcium 7.7 L, Magnesium 2.9 H D, Total Bilirubin 0.3, AST 39 H, ALT 27 D, Alkaline Phosphatase 106, Total Protein 4.8 L, Albumin 2.2 L, Globulin 2.6, Albumin/Globulin Ratio 0.8 L, Hepatitis A IgM Ab Negative, Hep Bs Antigen Negative, Hep B Core IgM Ab Negative, Hepatitis C Antibody Non reactive, HCV RNA PCR Test Info Comment 03/08/25 08:51: POC Glucose 183 H 03/08/25 11:49: POC Glucose 196 H 03/08/25 17:27: POC Glucose 91 03/08/25 20:50: POC Glucose 116 H 03/09/25 05:33: POC Glucose 74 03/09/25 05:35: WBC 9.4 D, RBC 2.82 L, Hgb 7.8 L, Hct 25.5 L, MCV 90.4, MCH 27.7, MCHC 30.6 L, RDW 16.0, Plt Count 189, MPV 10.0, Neut % (Auto) 69.6, Lymph % (Auto) 19.2, [place] % (Auto) 7.4, Eos % (Auto) 1.7, Baso % (Auto) 0.2, Neut # (Auto) 6.6, Lymph # (Auto) 1.8, [place] # (Auto) 0.7, Eos # (Auto) 0.2, Baso # (Auto) 0.0, Sodium 141, Potassium 3.7, Chloride 115 H, Carbon Dioxide 22, Anion Gap 7.7, BUN 22 H, Creatinine 0.80, Estimated Creat Clear 58, Estimated GFR 70, Est GFR ( Amer) 85, Glucose 60 L, Calcium 7.5 L, Magnesium 2.4 H D, Total Bilirubin 0.2, AST 31, ALT 22, Alkaline Phosphatase 100, Total Protein 4.8 L, Albumin 2.2 L, Globulin 2.6, Albumin/Globulin Ratio 0.8 L I & O for Last 24 hours: Intake & Output 03/06/25 03/07/25 03/08/25 03/09/25 11:59 11:59 11:59 11:59 Intake Total 1250 / 1250 3500 / 3500 2630 / 2630 1040 / 1040 Output Total 350 / 350 2100 / 2100 2250 / 2250 1400 / 1400 Balance 900 / 900 1400 / 1400 380 / 380 -360 / -360 Weight 136 lb 6.4 oz 149 lb 3 oz 164 lb 9 oz 166 lb 9.6 oz *Routine Abdominal Exam Abdominal: Present soft; Absent tenderness Progress Note: A&P Assessment and plan (1) Cholelithiasis and acute cholecystitis with obstruction: Status: Acute Assessment and plan: Doing well. Advance diet. (2) DKA (diabetic ketoacidosis): Status: Acute (3) High anion gap metabolic acidosis: Status: Acute (4) Vomiting: Status: Acute (5) Dehydration: Status: Acute (6) Colitis: Status: Acute (7) Esophagitis: Status: Acute (8) Walking difficulty due to ankle and foot: Status: Acute (9) Functional quadriplegia: Status: Acute (10) Hypomagnesemia: Status: Acute (11) Hypokalemia: Status: Acute
[2025-03-09 08:00] VITALS: BP 144/60; PULSE 67; RESP 20; TEMP 37.3; O2SAT 96
--- NOTE | 2025-03-09 08:04 | P.PN_ITS ---
Subjective *Date: 03/09/25 *Time: 08:04 Medical Exam Vital signs and Labs for Last 24 Hours: Vital Signs Temp Pulse Resp BP Pulse Ox O2 Del Method 03/09/25 06:30 Room Air 03/09/25 05:00 Room Air 03/09/25 04:00 98.8 F 78 16 126/58 L 96 Room Air 03/09/25 03:00 Room Air 03/09/25 01:00 Room Air 03/09/25 00:00 98.2 F 77 16 151/70 H 99 Room Air 03/08/25 23:00 Room Air 03/08/25 21:00 Room Air 03/08/25 20:00 72 16 98 Room Air 03/08/25 20:00 97.9 F 72 16 139/67 96 Room Air 03/08/25 18:55 Room Air 03/08/25 17:00 Room Air 03/08/25 16:00 97.8 F 70 18 121/45 L 96 Room Air 03/08/25 15:00 Room Air 03/08/25 13:00 Room Air 03/08/25 12:00 98.8 F 65 18 138/54 L 96 Room Air 03/08/25 11:00 Room Air 03/08/25 09:00 Room Air Intake and Output 03/08/25 03/09/25 03/09/25 23:59 07:59 15:59 Intake Total 400 / 1520 100 / 100 Output Total 800 / 1500 600 / 600 Balance -400 / 20 -500 / -500 Intake: Intake, Oral Amount 400 / 1520 100 / 100 Output: Output, Urine Amount 800 / 1300 600 / 600 Other: Number of Voids 2 Number of Unmeasured Voids 1 Weight 75.568 kg Patient Weight 03/09/25 23:59 Weight 75.568 kg Laboratory Results - last 24 hr 03/08/25 05:32: Sodium 139, Potassium 3.6, Chloride 112 H, Carbon Dioxide 22, Anion Gap 8.6, BUN 26 H, Creatinine 0.80, Estimated Creat Clear 57, Estimated GFR 70, Est GFR ( Amer) 85, Glucose 136 H, Calcium 7.7 L, Magnesium 2.9 H D, Total Bilirubin 0.3, AST 39 H, ALT 27 D, Alkaline Phosphatase 106, Total Protein 4.8 L, Albumin 2.2 L, Globulin 2.6, Albumin/Globulin Ratio 0.8 L, Hepatitis A IgM Ab Negative, Hep Bs Antigen Negative, Hep B Core IgM Ab Negative, Hepatitis C Antibody Non reactive, HCV RNA PCR Test Info Comment 03/08/25 08:51: POC Glucose 183 H 03/08/25 11:49: POC Glucose 196 H 03/08/25 17:27: POC Glucose 91 03/08/25 20:50: POC Glucose 116 H 03/09/25 05:33: POC Glucose 74 03/09/25 05:35: WBC 9.4 D, RBC 2.82 L, Hgb 7.8 L, Hct 25.5 L, MCV 90.4, MCH 27.7, MCHC 30.6 L, RDW 16.0, Plt Count 189, MPV 10.0, Neut % (Auto) 69.6, Lymph % (Auto) 19.2, [place] % (Auto) 7.4, Eos % (Auto) 1.7, Baso % (Auto) 0.2, Neut # (Auto) 6.6, Lymph # (Auto) 1.8, [place] # (Auto) 0.7, Eos # (Auto) 0.2, Baso # (Auto) 0.0, Sodium 141, Potassium 3.7, Chloride 115 H, Carbon Dioxide 22, Anion Gap 7.7, BUN 22 H, Creatinine 0.80, Estimated Creat Clear 58, Estimated GFR 70, Est GFR ( Amer) 85, Glucose 60 L, Calcium 7.5 L, Magnesium 2.4 H D, Total Bilirubin 0.2, AST 31, ALT 22, Alkaline Phosphatase 100, Total Protein 4.8 L, Albumin 2.2 L, Globulin 2.6, Albumin/Globulin Ratio 0.8 L I & O for Labs for Last 24 Hours: Intake & Output 03/06/25 03/07/25 03/08/25 03/09/25 23:59 23:59 23:59 23:59 Intake Total 2950 / 4750 3950 / 4070 1420 / 1520 100 / 100 Output Total 1600 / 1600 2550 / 2750 1350 / 1500 600 / 600 Balance 1350 / 3150 1400 / 1320 70 / 20 -500 / -500 Weight 61.87 kg 67.67 kg 74.644 kg 75.568 kg The patient's infection will respond to the chosen ABx?: Yes (AFEBRILE OVER 24 HRS, URINE CULTURES = GRAM NEG RODS, SECOND CX PENDING) Is the patient receiving the right drug, dose, and route?: Yes Could a more targeted ABx be ordered?: No How long ABx needed (days)?: 7
[2025-03-09] MEDS: INSULIN GLARGINE 100 UNITS/ML 3ML FLEXPEN 15 UNIT SUBCUT (08:49)
[2025-03-09] MEDS: DOXAZOSIN 4MG TAB 4 MG PO (08:50)
[2025-03-09] MEDS: BISOPROLOL 5MG TABLET 10 MG PO (08:50)
[2025-03-09 09:06] LABS: POC Glucose,Bedside 97 (70-110)
[2025-03-09 10:06] VITALS: BMI 27.0
[2025-03-09 10:27] LABS: POC Glucose,Bedside 84 (70-110)
[2025-03-09] MEDS: LEVOFLOXACIN/D5W 750 MG/150 ML 750 MG/150 ML PIGGYBACK 100 MG IV (11:28)
--- NOTE | 2025-03-09 12:41 | PC.WOUNDNOTE ---
SKIN TEAR NOTED TO RIGHT HARDY
--- NOTE | 2025-03-09 13:23 | SW/DCPLANNER ---
Addendum entered by Iris Lam 03/09/25 15:44: [facility] has a 8 month wait list. I also talked to patient about coming back to [facility] for outpatient therapy and because of the drive they are not interested at the time. Mao Jimenez Addendum entered by Iris Lam 03/09/25 15:04: [facility] does not accept the patient's insurance. I also talked to [facility] and they are not in network with patient's insurance. Im going to call [facility] and see if they can accept patient. Mao Jimenez Addendum entered by Iris Lam 03/09/25 13:59: [facility] was not able to accept the patient due to not being in network with patient's insurance. I sent patient's information to [facility]. Will update when i hear back from [facility]. Mao Jimenez Original Note: Spoke with patient about once medically stable and ready for discharge if she would be interested in home health services. Patient stated that she would and that she has no preference in what agency she uses. I faxed patients information to [facility]. Will update once i hear back from [facility]. Mao Jimenez
--- NOTE | 2025-03-09 13:27 | PC.NURSE ---
Pt has a new skin tear to right lower leg, documented in biophysical and picture is in chart. Mepilex placed over skin tear.
--- NOTE | 2025-03-09 14:56 | EXP.DC.SUM ---
General Admission date:: 03/05/25 HPI HPI HPI: Patient is a 74-year-old female from [facility] who presented to the emergency department overnight after she had developed nausea and vomiting beginning approximately 10 PM on 03/04/2025. There was initial concern for coffee-ground emesis. Patient initially denied any abdominal pain but she is somewhat of a poor historian. Evaluation in the emergency department revealed an appreciable leukocytosis of 29,300. H&H within reasonable limits. Liver function tests essentially normal. She was found to have notable hyperglycemia with elevated anion gap and diminished bicarbonate. She was empirically started on levofloxacin. CT scan of the abdomen and pelvis revealed findings suspicious for cholecystitis? 14 mm lesion in the gallbladder neck is most likely a sludge ball or noncalcified stone although an enhancing solid lesion might produce this appearance, recommend ultrasound assessment with Doppler evaluation to exclude internal vascularity. There was also possible colitis versus nondistended colon as well as 14 mm incidental right adrenal nodule. Since admission her white blood cell count remains elevated at 28,000. Hemoglobin is 9.9. She has 92% neutrophils. 03/08/25 Podiatry consulted for 74 yr.old female new patient admitted through the ER for N/V and abdominal pain. She was also having pain from her RH nail lifting off. The patient is a diabetic and there does not appear to be any drainage or SOI from this site. Plan to just trim all her nails and trim the Right hallux back to keep from catching on anything until it can grow back out. Hospital Course Hospital Course Hospital Course: Nalini Ram is a 74-year-old female who is bedbound and has not walked in over 2 years. Requires [employer] lift at home and support of family. Presented with nausea, vomiting, abdominal pain. Admitted for further management of metabolic acidosis and cholecystitis, euglycemic DKA. Nausea and vomiting HEATHER Sepsis Cholecystitis DKA UTI - DKA resolved with insulin and IV fluids. Continue insulin glargine 15 units daily with sliding scale insulin and finger sticks ACHS - General Surgery consulted, s/p laparoscopic cholecystectomy 03/07/2025. Treated with levofloxacin, metronidazole. - Continue broad-spectrum antibiotics with Levaquin and Flagyl renally dosed due to penicillin allergy ? UA grossly abnormal, urine culture pending at this time. ? Discharged with cefdinir, metronidazole for 3 more days. Troponin 0.05, stable. Suspect type II NSTEMI from stress of DKA and nausea and vomiting. Hypertension: Continue home medications. Functional quadriplegia: Patient is nonambulatory, has not walked in 2 years. Uses [employer] lift to get around at home. Is at baseline function. 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 Needs staff to feed her. Fully dependent for all ADLs lives at home with her . PT evaluated, at baseline. No recommendations for placement at this time. Total time spent on discharge: 32 minutes on chart review, counseling, documentation, and direct care with patient. Exam Data for Last 24 hours Vital signs and Labs for Last 24 Hours: Temp Pulse Resp BP Pulse Ox O2 Del Method 99.1 F 67 20 144/60 H 96 Room Air 03/09/25 08:00 03/09/25 08:00 03/09/25 08:00 03/09/25 08:00 03/09/25 08:00 03/09/25 13:00 Laboratory Results - last 24 hr 03/05/25 18:50: Urine Color Yellow, Urine Appearance Slightly cloudy, Urine pH 5.5, Ur Specific [place] 1.015, Urine Protein Trace, Urine Glucose (UA) 3+, Urine Ketones 2+, Urine Blood Trace-i, Urine Nitrate Negative, Urine Bilirubin Negative, Urine Urobilinogen 0.2, Ur Leukocyte Esterase Negative, Urine RBC Occasional, Urine WBC 5-10, Ur Squamous Epith Cells 5-10, Urine Bacteria 4+ 03/08/25 05:32: Hepatitis A IgM Ab Negative, Hep Bs Antigen Negative, Hep B Core IgM Ab Negative, Hepatitis C Antibody Non reactive, HCV RNA PCR Test Info Comment 03/08/25 17:27: POC Glucose 91 03/08/25 20:50: POC Glucose 116 H 03/09/25 05:33: POC Glucose 74 03/09/25 05:35: WBC 9.4 D, RBC 2.82 L, Hgb 7.8 L, Hct 25.5 L, MCV 90.4, MCH 27.7, MCHC 30.6 L, RDW 16.0, Plt Count 189, MPV 10.0, Neut % (Auto) 69.6, Lymph % (Auto) 19.2, [place] % (Auto) 7.4, Eos % (Auto) 1.7, Baso % (Auto) 0.2, Neut # (Auto) 6.6, Lymph # (Auto) 1.8, [place] # (Auto) 0.7, Eos # (Auto) 0.2, Baso # (Auto) 0.0, Sodium 141, Potassium 3.7, Chloride 115 H, Carbon Dioxide 22, Anion Gap 7.7, BUN 22 H, Creatinine 0.80, Estimated Creat Clear 58, Estimated GFR 70, Est GFR ( Amer) 85, Glucose 60 L, Calcium 7.5 L, Magnesium 2.4 H D, Total Bilirubin 0.2, AST 31, ALT 22, Alkaline Phosphatase 100, Total Protein 4.8 L, Albumin 2.2 L, Globulin 2.6, Albumin/Globulin Ratio 0.8 L 03/09/25 08:48: POC Glucose 97 03/09/25 10:20: POC Glucose 84 I & O for Last 24 hours: Intake & Output 03/06/25 03/07/25 03/08/25 03/09/25 23:59 23:59 23:59 23:59 Intake Total 2950 / 4750 3950 / 4070 1420 / 1520 1450 / 1450 Output Total 1600 / 1600 2550 / 2750 1350 / 1500 1000 / 1000 Balance 1350 / 3150 1400 / 1320 70 / 20 450 / 450 Weight 61.87 kg 67.67 kg 74.644 kg 73.527 kg Microbiology Reports for the Last 24 Hours: Microbiology 03/05/25 18:50 Urine,Clean Catch Urine Culture - Preliminary Gram Negative Rods Gram Negative Rods#2 03/07/25 10:15 Urine,Catheterized Urine Culture - Preliminary Gram Positive Cocci *Routine Abdominal Exam Abdominal: Present soft; Absent tenderness Results Data Completed and Pending Labs on day of discharge: Labs from last 24 hours 03/09/25 03/09/25 03/09/25 10:20 08:48 05:35 WBC 9.4 D RBC 2.82 L Hgb 7.8 L Hct 25.5 L MCV 90.4 MCH 27.7 MCHC 30.6 L RDW 16.0 Plt Count 189 MPV 10.0 Neut % (Auto) 69.6 Lymph % (Auto) 19.2 [place] % (Auto) 7.4 Eos % (Auto) 1.7 Baso % (Auto) 0.2 Neut # (Auto) 6.6 Lymph # (Auto) 1.8 [place] # (Auto) 0.7 Eos # (Auto) 0.2 Baso # (Auto) 0.0 Sodium 141 Potassium 3.7 Chloride 115 H Carbon Dioxide 22 Anion Gap 7.7 BUN 22 H Creatinine 0.80 Estimated Creat Clear 58 Estimated GFR 70 Est GFR ( Amer) 85 Glucose 60 L POC Glucose 84 97 Calcium 7.5 L Magnesium 2.4 H D Total Bilirubin 0.2 AST 31 ALT 22 Alkaline Phosphatase 100 Total Protein 4.8 L Albumin 2.2 L Globulin 2.6 Albumin/Globulin Ratio 0.8 L Urine Color Urine Appearance Urine pH Ur Specific [place] Urine Protein Urine Glucose (UA) Urine Ketones Urine Blood Urine Nitrate Urine Bilirubin Urine Urobilinogen Ur Leukocyte Esterase Urine RBC Urine WBC Ur Squamous Epith Cells Urine Bacteria Hepatitis A IgM Ab Hep Bs Antigen Hep B Core IgM Ab Hepatitis C Antibody HCV RNA PCR Test Info 03/09/25 03/08/25 03/08/25 05:33 20:50 17:27 WBC RBC Hgb Hct MCV MCH MCHC RDW Plt Count MPV Neut % (Auto) Lymph % (Auto) [place] % (Auto) Eos % (Auto) Baso % (Auto) Neut # (Auto) Lymph # (Auto) [place] # (Auto) Eos # (Auto) Baso # (Auto) Sodium Potassium Chloride Carbon Dioxide Anion Gap BUN Creatinine Estimated Creat Clear Estimated GFR Est GFR ( Amer) Glucose POC Glucose 74 116 H 91 Calcium Magnesium Total Bilirubin AST ALT Alkaline Phosphatase Total Protein Albumin Globulin Albumin/Globulin Ratio Urine Color Urine Appearance Urine pH Ur Specific [place] Urine Protein Urine Glucose (UA) Urine Ketones Urine Blood Urine Nitrate Urine Bilirubin Urine Urobilinogen Ur Leukocyte Esterase Urine RBC Urine WBC Ur Squamous Epith Cells Urine Bacteria Hepatitis A IgM Ab Hep Bs Antigen Hep B Core IgM Ab Hepatitis C Antibody HCV RNA PCR Test Info 03/08/25 03/05/25 05:32 18:50 WBC RBC Hgb Hct MCV MCH MCHC RDW Plt Count MPV Neut % (Auto) Lymph % (Auto) [place] % (Auto) Eos % (Auto) Baso % (Auto) Neut # (Auto) Lymph # (Auto) [place] # (Auto) Eos # (Auto) Baso # (Auto) Sodium Potassium Chloride Carbon Dioxide Anion Gap BUN Creatinine Estimated Creat Clear Estimated GFR Est GFR ( Amer) Glucose POC Glucose Calcium Magnesium Total Bilirubin AST ALT Alkaline Phosphatase Total Protein Albumin Globulin Albumin/Globulin Ratio Urine Color Yellow Urine Appearance Slightly cloudy Urine pH 5.5 Ur Specific [place] 1.015 Urine Protein Trace Urine Glucose (UA) 3+ Urine Ketones 2+ Urine Blood Trace-i Urine Nitrate Negative Urine Bilirubin Negative Urine Urobilinogen 0.2 Ur Leukocyte Esterase Negative Urine RBC Occasional Urine WBC 5-10 Ur Squamous Epith Cells 5-10 Urine Bacteria 4+ Hepatitis A IgM Ab Negative Hep Bs Antigen Negative Hep B Core IgM Ab Negative Hepatitis C Antibody Non reactive HCV RNA PCR Test Info Comment Preliminary micro results at discharge 03/05/25 18:50 Urine Culture - Preliminary Urine,Clean Catch Gram Negative Rods Gram Negative Rods#2 03/07/25 10:15 Urine Culture - Preliminary Urine,Catheterized Gram Positive Cocci 03/05/25 18:14 Blood Culture - Preliminary Blood NO GROWTH AFTER 48 HOURS 03/05/25 18:16 Blood Culture - Preliminary Blood NO GROWTH AFTER 48 HOURS DS: Diagnosis Discharge Diagnosis (1) Cholelithiasis and acute cholecystitis with obstruction: Status: Acute Code(s): K80.01 - Calculus of gallbladder with acute cholecystitis with obstruction (2) DKA (diabetic ketoacidosis): Status: Acute Code(s): E11.10 - Type 2 diabetes mellitus with ketoacidosis without coma (3) High anion gap metabolic acidosis: Status: Acute Code(s): E87.29 - Other acidosis (4) Vomiting: Status: Acute Code(s): R11.10 - Vomiting, unspecified Qualifiers: Migraine intractability: intractable (5) Dehydration: Status: Acute Code(s): E86.0 - Dehydration (6) Colitis: Status: Acute Code(s): K52.9 - Noninfective gastroenteritis and colitis, unspecified (7) Esophagitis: Status: Acute Code(s): K20.90 - Esophagitis, unspecified without bleeding (8) Walking difficulty due to ankle and foot: Status: Acute Code(s): R26.2 - Difficulty in walking, not elsewhere classified (9) Functional quadriplegia: Status: Acute Code(s): R53.2 - Functional quadriplegia (10) Hypomagnesemia: Status: Acute Code(s): E83.42 - Hypomagnesemia (11) Hypokalemia: Status: Acute Code(s): E87.6 - Hypokalemia Meds Home Medications and Allergies Home Medications ?Medication ?Instructions ?Recorded ?Confirmed ?Type aspirin 81 mg chewable tablet 81 mg PO DAILY CAD 12/30/17 03/18/25 History atorvastatin 40 mg tablet 40 mg PO HS 05/13/18 03/18/25 History lisinopril 40 mg tablet 40 mg PO BID BLOOD PRESSURE 05/27/18 03/18/25 History dapagliflozin propanediol 10 mg 10 mg PO DAILY 03/06/25 03/18/25 History tablet (Farxiga) diltiazem HCl 90 mg tablet 90 mg PO DAILY 03/06/25 03/18/25 History doxazosin 4 mg tablet 4 mg PO DAILY 03/06/25 03/18/25 History ferrous sulfate 325 mg (65 mg 325 mg PO DAILY 03/06/25 03/18/25 History iron) tablet (FeroSul) insulin glargine 100 25 unit SQ DAILY 03/06/25 03/18/25 History unit-lixisenatide 33 mcg/mL subcutaneous pen (Soliqua 100/33) metformin 1,000 mg tablet 1,000 mg PO DAILY 03/06/25 03/18/25 History cefdinir 300 mg capsule 300 mg PO BID 10 days #20 caps 03/18/25 Rx loratadine 10 mg tablet 10 mg PO 03/18/25 03/18/25 History New Prescriptions to Start Prescriptions: Allergies Allergy/AdvReac Type Severity Reaction Status Date / Time Penicillins Allergy Hives Verified 03/18/25 09:48 Sulfa (Sulfonamide Allergy Hives Verified 03/18/25 09:48 Antibiotics) Discharge Plan Disposition Patient Disposition: Home, Self-Care Condition: Fair Discharge Order Discharge Orders: Discharge Order (Routine); Ordered 03/09/25 Ordered By: Vasquez Mcclure Follow up Plan Follow up with: Anthony Freedman MD [Staff Physician, General Surgery] - 03/18/25 9:30 am Prescriptions/Medication Reconciliation: Continued lisinopril 40 mg tablet 40 mg PO BID atorvastatin 40 mg tablet 40 mg PO HS Soliqua 100/33 100 unit-33 mcg/mL insulin pen 25 unit SQ DAILY Patient Comments: INJECT 25 UNITS SUBCUTANEOUSLY EVERY DAY ferrous sulfate [FeroSul] 325 mg (65 mg iron) tablet 325 mg PO DAILY Patient Comments: TAKE 1 TABLET BY MOUTH EVERY DAY diltiazem HCl 90 mg tablet 90 mg PO DAILY Patient Comments: TAKE ONE (1) TABLET BY MOUTH TWICE DAILY dapagliflozin propanediol [Farxiga] 10 mg tablet 10 mg PO DAILY Patient Comments: TAKE ONE (1) TABLET BY MOUTH DAILY metformin 1,000 mg tablet 1,000 mg PO DAILY Patient Comments: TAKE 1 TABLET BY MOUTH EVERY DAY doxazosin 4 mg tablet 4 mg PO DAILY Patient Comments: TAKE 1 TABLET BY MOUTH EVERY DAY aspirin 81 MG tablet,chewable 81 mg PO DAILY No Action loratadine 10 mg tablet 10 mg PO Patient Comments: TAKE 1 TABLET BY MOUTH EVERY DAY cefdinir 300 mg capsule 300 mg PO BID 10 Days Qty: 20 0RF Problem Reconciliation Problems Reviewed?: Yes Patient Discharge Instructions Patient Instructions: DI for Dehydration -- Adult, DI for Vomiting -- Adult, DI for Surgical Site Infection, DI for Colitis, DI for Laparoscopic Cholecystectomy, Catheter-Associated Urinary Tract Infection, High-Protein Diet Foods List Print Language: Serbian Providers Primary Care Provider: Davian Sawyer Admmarce Provider: Gary Fischer Attending Provider: Gary Fischer
--- NOTE | 2025-03-10 10:17 | SW/DCPLANNER ---
Spoke with patient's on the phone. Patient's stated that she is doing well. Patient's stated that they are aware of her upcoming appointment. Patient's stated that they were able to get her new medicine picked up from clinic pharmacy. Patient's stated that they have no concerns or questions at this time. Mao GARCIA [employer]
== END 2025-03-09 17:22 | disposition home or self-care (01) | DRG 853 ==
LOC: ER 17:40 → 2ND 21:44
PROVIDERS: Nurse Practitioner Acute Care; Nurse Practitioner Family; Surgery; Admitting Provider Internal Medicine Adolescent Medicine; Emergency Provider Emergency Medicine; PCP Internal Medicine Adolescent Medicine; Visit Provider Internal Medicine Adolescent Medicine
PROC: 0FT44ZZ Resection of Gallbladder, Percutaneous Endoscopic Approach (ICD-10-PCS; CPT 47562; principal; 2025-03-07 10:00)
DX: A41.9 Sepsis, unspecified organism (principal); E11.10 Type 2 diabetes mellitus with ketoacidosis without coma; I21.A1 Myocardial infarction type 2; R53.2 Functional quadriplegia; K80.01 Calculus of gallbladder with acute cholecystitis with obstruction; N39.0 Urinary tract infection, site not specified; K52.9 Noninfective gastroenteritis and colitis, unspecified; I10 Essential (primary) hypertension; E86.0 Dehydration; K20.90 Esophagitis, unspecified without bleeding; E83.42 Hypomagnesemia; E87.6 Hypokalemia; L60.3 Nail dystrophy; B35.1 Tinea unguium; Z79.82 Long term (current) use of aspirin; Z74.01 Bed confinement status; Z79.84 Long term (current) use of oral hypoglycemic drugs; Z79.4 Long term (current) use of insulin; Z88.0 Allergy status to penicillin; Z88.2 Allergy status to sulfonamides
CPT/HCPCS: 36415; 51702; 71045; 71260; 74177; 76705; 80048; 80053; 80074; 81001; 82803; 82962; 83036; 83605; 83735; 84484; 85007; 85025; 85610; 87040; 87086; 87088; 87186; 88304; 93005; 97162; 97166; J0736; J1100; J1650; J1956; J2405; J2470; J3010; J3372; J3475; J3480; J7030; J7120; Q9967

== ENCOUNTER 2025-03-18 11:33 | Outpatient (CLI) | payer MEDICARE, SELFPAY ==
[2025-03-18 12:43] LABS: Basophils # 0.1 K/mm3 (0-0.2); Basophils % 0.3 % (0.1-2.0); Eosinophils # 0.1 Kmm3 (0.0-0.4); Eosinophils % 0.9 % (0.1-12.0); Hematocrit 31.5 % (37.0-47.0); Hemoglobin 9.8 g/dL (12.2-16.2); Immature Granulocytes # 0.29 10^3uL; Immature Granulocytes % 1.8 %; Lymphocytes # 1.6 K/mm3 (0.7-4.5); Lymphocytes % 9.6 % (10-50); Mean Corpuscular HGB Conc 31.1 g/dL (31.8-35.4); Mean Corpuscular Hemoglobin 28.8 pg (27.0-31.2); Mean Corpuscular Volume 92.6 fl (81-99); Monocytes # 0.8 K/mm3 (0.1-1.0); Monocytes % 4.9 % (1.7-9.3); Neutrophils # 13.6 K/mm3 (1.8-7.8); Neutrophils % 82.5 % (37.0-80.0); Nucleated Red Blood Cells # 0 10^3/uL; Nucleated Red Blood Cells % 0 %; Platelet Count 352 K/mm3 (142-424); Red Cell Distribution Width 16.3 % (11.5-17.5); Red Cell Distribution Width-SD 54.5 fL; White Blood Count 16.5 K/mm3 (4.8-10.8)
[2025-03-18 12:56] LABS: Alanine Aminotransferase 13 U/L (12-78); Albumin Level 2.8 g/dl (3.5-5.0); Alkaline Phosphatase 87 U/L (38-126); Anion Gap 9.1 mEq/L (5-15); Aspartate Amino Transferase 23 U/L (14-36); Bilirubin,Total 0.5 mg/dl (0.2-1.3); Blood Urea Nitrogen 19 mg/dl (7-17); Calcium 8.5 mg/dl (8.4-10.2); Carbon Dioxide 23 mmol/L (22.0-30.0); Chloride 110 mmol/L (98-107); Estimated Glomerular Filt Rate 82 ml/min (>60); GFR (African American) 99 ML/MIN (>60); Globulin 2.7 g/dL (1.3-3.2); Glucose 90 mg/dl (74-100); Lipase 57 U/L (23-300); Potassium 5.1 mmoL/L (3.5-5.1); Sodium 137 mmol/L (136-145); Total Protein,Serum 5.5 g/dl (6.3-8.2)
--- OUTSIDE RECORDS SUMMARY | 2025-03-18 13:22 | XMS_ITS ---
Author Organization [facility] Care Team Providers Care Subsorter Name Role Phone Jagruti Tee (Helen) Unavailable Unavail able Davian Sawyer Unavailable Unavailable Allergies and adverse reactions Code CodeSystem Substance Reaction Severity StartDate Concern Status 530054812 SNOMED CT Sulfa Antibiotics Unknown 01/18/2021 active PENICILLIN Moderate 12/12/2017 active Care Team Name Role Address Phone Organization Dates Davian Sawyer PCP [address], [place], [address], [facility] (Office): [facility] 01/18/2021 - 04/14/2021 Jagruti (Helen) [place], [address], [facility] (Office): : [facility] 01/18/2021 - 04/14/2021 Goals Section Goals Description Status Target Date [place] will demonstrate the ap propriate use of adaptive device(s) to increase mobility - through the review date. Device:wheelchair Active 05/02/2021 [place] will improve current le melany of function in: Bed Mobility, Transfers, Dressing, Toilet Use and Personal Hygiene, ADL Score) - through the review date, as physician guides her weight bearing ability Active 05/02/2021 [place]ini will remain free from s kin breakdown due to incontinence and brief use - through the review date. Active 05/02/2021 [place] will remain free of com plications related to immobility, including contractures, thrombus formation, skin-breakdown, fall related injury - through the next review date. Active 05/02/2021 Nalini 's risk for septicemia will be minimized/prevented via prompt recognition and treatment of symptoms of UTI - through the review date. Active 05/02/2021 Nalini and spouse will) be abl e to verbalize/communicate required assistance post-discharge and the services required to meet needs before discharge. Active 05/02/2021 [place] will be free from infec tion - through the review date. Active 05/02/2021 N[place]ini will be free from s/sx of complications of cardiac problems - through the review date. Active 05/02/2021 [place] will be free of any dis comfort or adverse side effects of diuretic therapy - through the review date. Active 05/02/2021 [place] will be free of falls through the review da te. Active 05/02/2021 [place] will be free of symptom s of dehydration and maintain moist mucous membranes, good skin turgor. - thru next review Active 05/02/2021 [place] will have intact skin, free of redness, blisters or discoloration - through review date. Active 05/02/2021 [place] will have no complicati ons related to diabetes - through the review date. Active 05/02/2021 [place] will have no s/sx of co mplications r/t fluid deficit - through the review date. Active 05/02/2021 [place] will maintain adequate nutritional status as evidenced by maintaining weight/minimizing weight loss within (10)% of BASELINE, no s/sx of malnutrition - through review date. Active 05/02/2021 [place]ini will maintain lab value s within acceptable parameters per MD - through review date. Active 05/02/2021 [place] will not show s/sx of d ehydration - thru next review Active 05/02/2021 [place] will remain free of s/s x of distress, symptoms of depression, anxiety or sad mood - by/through review date. Active 05/02/2021 [place] will verbalize adequate relief of pain or ability to cope with incompletely relieved pain - through the review date. Active 05/02/2021 [place] will) demonstrate correct administration of medications. Active 05/02/2021 [place] will) verbalize/communi melissa and understanding of the discharge plan and describe the desired outcome - by the review date. Active 05/02/2021 Goal is slow gradual weight loss, closer to IBWR, with po of 50% or greater. Random blood sugar of 200 or less, fasting of 165 or less. Intact, non-redened skin. Free from edema. : Goal is weight maintenance +/- 4# x 90 days with po of 50% or greater. Active 07/03/2021 Resident and Family's wishes will be honored. Ac tive 05/02/2021 Immunizations Immunization Status Vaccine Details Vaccine Code CodeSystem Date Notes Influenza completed Influenza, high-dose, split virus, quadrivalent, injectable, preservative free Given 0.5 ml Left Deltoid intramuscularly 197 CVX created date: 12/16/2017 administer ed date: 09/09/2017 received at office. TB 1 Step Mantoux (PPD) completed tuberculin skin test; unspecified formulation Mfg: sanfoi past unli Given 0.1 ml Right Forearm intradermally 98 CVX created date: 01/20/2021 consent date: 01/19/2021 administer ed date: 01/18/2021 read 01/20, negative TB 1 Step Mantoux (PPD) completed tuberculin skin test; unspecified formulation Given Left Forearm subcutaneously 98 CVX created date: 12/13/2017 consent date: 12/12/2017 administer ed date: 12/12/2017 TB 2 Step Mantoux Skin Test completed tuberculin skin test; unspecified formulation lotNumber: [id number] expiry: 06/25/2022 Mfg: Sandfi pasteur Given 0.1 ml Left Forearm intradermally Step 1 of Multi-step 98 CVX created date: 01/24/2021 consent date: 01/24/2021 administer ed date: 01/24/2021 Read by GAIL, 01/26, results negative TB 2 Step Mantoux Skin Test completed tuberculin skin test; unspecified formulation Mfg: sanofi pasteur limited Given 0.1 ml Right Forearm intradermally Step 1 of Multi-step 98 CVX created date: 12/25/2017 consent date: 12/25/2017 administer ed date: 12/19/2017 Previnar 13 completed Given 0.5 ml Rig ht Deltoid intramuscularly created date: 12/16/2017 administer ed date: 09/09/[address] Qureshi office Mental Status Section Date Assessment Total Score Description 04/14/2021 BIMS 15 cognitively int act CAM 0 No delirium ind icated PHQ-9 00 03/05/2021 BIMS 13 cognitively int act CAM 0 No delirium ind icated PHQ-9 02 minimal depress ion Problems Problem # Description Date of onset Resolved Date Code CodeSystem Concern Status 1 OTHER REDUCED MOBILITY [address] active 2 ACUTE KIDNEY FAILURE, UNSPECIFIED [address] active 3 ANEMIA, UNSPECIFIED [address] active 4 ESSENTIAL (PRIMARY) HYPERTENSION [address] active 5 HYPERLIPIDEMIA, UNSPECIFIED [address] active 6 MUSCLE WEAKNESS (GENERALIZED) [address] active 7 NONDISPLACED FRACTURE OF LATERAL CONDYLE OF LEFT TIBIA, SUBSEQUENT ENCOUNTER FOR CLOSED FRACTURE WITH ROUTINE HEALING [address] active 8 OTHER RECURRENT DEPRESSIVE DISORDERS [address] active 9 PERSONAL HISTORY OF OTHER DISEASES OF THE CIRCULATORY SYSTEM [address] active 10 TYPE 2 DIABETES MELLITUS WITH HYPERGLYCEMIA [address] active 11 TYPE 2 DIABETES MELLITUS WITHOUT COMPLICATIONS [address] active 12 UNSPECIFIED FALL, SEQUELA [address] active 13 UNSPECIFIED FRACTURE OF LOWER END OF RIGHT FEMUR, SUBSEQUENT ENCOUNTER FOR CLOSED FRACTURE WITH ROUTINE HEALING [address] active 14 URINARY TRACT INFECTION, SITE NOT SPECIFIED [address] active 15 ACUTE RESPIRATORY FAILURE WITH HYPOXIA 8 01/18/[address] completed 16 ATHEROSCLEROTIC HEART DISEASE OF [place] CORONARY ARTERY 8 01/18/[address] completed 17 CHRONIC VENOUS HYPERTENSION (IDIOPATHIC) 8 01/18/[address] completed 18 DIABETES MELLITUS DUE TO UNDERLYING CONDITION 8 01/18/[address] completed 19 DISPLACED FRACTURE OF LATERAL CONDYLE OF RIGHT TIBIA, INITIAL ENCOUNTER FOR OPEN FRACTURE TYPE I OR II 8 01/18/[address] completed 20 DISPLACED SUPRACONDYLAR FRACTURE WITHOUT INTRACONDYLAR EXTENSION OF LOWER END OF RIGHT FEMUR, INITIAL ENCOUNTER FOR CLOSED FRACTURE 8 01/18/[address] completed 21 HISTORY OF FALLING 8 01/18/[address] completed 22 HYPERLIPIDEMIA, UNSPECIFIED 8 01/18/[address] completed 23 OTHER SEPSIS 8 01/18/[address] completed Reason for Referral No Reasons for Referral Entered Social History Social History Observation Description Start Date End Date Code Code System Current Smoking Status Tobacco smoking consumption unknown 003572865 SNOMED CT Sex Assigned At Female 1950 17092-2 [facility] Gender Identity Vital Signs Code Code System Vitals Name Values and Units Timing Information 9279-1 [facility] Respiratory Rate Value=20.0 Units=/m in 04/14/2021 8462-4 [facility] Blood Pressure-Diastolic Value=61 Un its=mmHg 04/14/2021 8480-6 [facility] Blood Pressure-Systolic Uzelz=758 Un its=mmHg 04/14/2021 8310-5 [facility] Body Temperature Value=98.1 Units= F 04/14/2021 8867-4 [facility] Heart rate Value=74.0 Units=/min 06/2021 2339-0 [facility] Blood Sugar Zvljl=899.0 Units=mg/dL 04/14/2021 18675-4 [facility] O2 % dC Oximetry Value=98.0 Units= % 04/14/2021 43213-2 [facility] Pain Level Value=0.0 04/14/2021 06188-0 [facility] Weight Qcjce=040.8 Units=Lbs 10/2020 8302-2 LOINC Height Value=65.0 Units=Inches 01/18/2021
--- OUTSIDE RECORDS SUMMARY | 2025-03-18 13:22 | XMS_ITS | Clinical Summary ---
Author Organization [facility] Address [address] [place] [address] Care Team Providers Care Auditor Medical Claims Name Role Phone Davian Sawyer MD Primary Care Provider + [phone] Allergies Active Allergy Reactions Criticality Noted Date Comments Penicillins Rash,Unknown - Patie nt states they do not know rxn details Medium 12/06/2017 Sulfa Drugs Itching,Unknown - Pa tient states they do not know rxn details Medium 12/26/2017 Medications Farxiga 10 MG tablet Take 1 tablet (10 mg) by mouth 1 (one) time each day. Active escitalopram (Lexapro) 20 MG tablet Take 1 tablet (20 mg) by mouth every night. Active Soliqua 100-33 UNT-MCG/ML solution pen-injector Inject 25 Units under the skin 1 (one) time each day. Active metFORMIN (Glucophage) 1000 MG tablet Take 1 tablet (1,000 mg) by mouth 1 (one) time each day. Active loratadine (Claritin) 10 MG tablet Take 1 tablet (10 mg) by mouth 1 (one) time each day. Active atorvastatin (Lipitor) 40 MG tablet Take 1 tablet (40 mg) by mouth 1 (one) time each day. Active bisoprolol (Zebeta) 10 MG tablet Take 1 tablet (10 mg) by mouth every night. Active dilTIAZem (Cardizem) 90 MG immediate release tablet Take 1 tablet (90 mg) by mouth 2 (two) times a day. Active FeroSul 325 (65 Fe) MG tablet Take 1 tablet (325 mg) by mouth 1 (one) time each day. Active ASPIRIN 81 MG chewable tablet Chew 1 tablet (81 mg) 1 (one) time each day. Active cholecalciferol (Vitamin D3) 25 MCG (1000 UT) tablet Take 1 tablet (1,000 Units) by mouth 1 (one) time each day. Active methocarbamol (Robaxin) 750 MG tablet Take 1 tablet (750 mg) by mouth 4 (four) times a day for 14 days. 56 tablet 06/03/2024 Active lisinopril 40 MG tablet Take 1 tablet (40 mg) by mouth 1 (one) time each day. 06/15/2024 Active polyethylene glycol (Miralax) 17 g packet Take 17 g by mouth 1 (one) time each day. 06/15/2024 Active melatonin 3 MG tablet Take 2 tablets (6 mg) by mouth at night if needed for sleep. 06/14/2024 Active doxazosin (Cardura) 8 MG tablet Take 1 tablet (8 mg) by mouth every night. 30 tablet 06/15/2024 Active Active Problems Problem Noted Date Diagnosed Date Closed fracture of right ankle 06/01/2024 UTI (urinary tract infection) 05/31/2024 Overview (05/31/2024): 05/30: Fosfomycin Primary hypertension 05/29/2024 Overview (06/15/2024): Resumed home meds High cholesterol 05/29/2024 Diabetes mellitus, type 2 05/29/2024 Overview (05/31/2024): Complicates healing CC2 diet, SSI Fall at home, initial encounter 05/28/2024 Overview (05/28/2024): Admit SGT Tertiary 05/29 ABLA (acute blood loss anemia) 05/28/2024 Overview (05/31/2024): Trend H&H, HDS 05/31: 1u PRBC, hgb 6.7 Prolonged Q-T interval on ECG 05/28/2024 Overview (05/28/2024): Seen on admission EKG Closed fracture of proximal end of right fibula 05/28/2024 Overview (05/29/2024): Nondisplaced fracture of the proximal diaphysis of the fibula. Ortho consulted 05/29: R trimal ankle fx/dl s/p TTC nail Closed trimalleolar fracture of right ankle 05/08 Overview (05/29/2024): Displaced trimalleolar fracture of the ankle Ortho consulted 05/29: R trimal ankle fx/dl s/p TTC nail Closed fracture of fourth metatarsal bone of lef t foot 05/28/2024 Overview (06/15/2024): Left lower extremity: Suspected subtle acute fracture of the neck of the fourth metatarsal. Ortho consulted Hard soled shoe Resolved Problems Problem Noted Date Diagnosed Date Resolved Date Hypomagnesemia 05/31/2024 06/15/2024 Overview (05/31/2024): 05/30: replaced IV HEATHER (acute kidney injury) 05/31/2024 Overview (05/31/2024): IVF, resolved, trend Scr Hyperkalemia 05/28/2024 06/15/2024 Overview (05/29/2024): Treated on admission and 05/28 PM Trend Family History Medical History Relation Name Comments Diabetes Other 1 Diabetes Other 2 Diabetes Sister Relation Name Status Comments Other 1 Other 2 Sister Social History Tobacco Use Types Packs/Day Years Used Date Smoking Tobacco: Never Smokeless Tobacco: Never Tobacco Cessation:Counseling Given: Not Answered Alcohol Use Standard Drinks/Week Comments No 0 (1 standard drink = 0.6 oz pur e alcohol) Humiliation, Afraid, Rape, and Kick questionnair e Answer Date Recorded Within the last year, have y ou been afraid of your partner or ex-partner? No 05/29/2024 Within the last year, have y ou been humiliated or emotionally abused in other ways by your partner or ex-partner? No Within the last year, have y ou been kicked, hit, slapped, or otherwise physically hurt by your partner or ex-partner? No 05/29/2024 Within the last year, have y ou been raped or forced to have any kind of sexual activity by your partner or ex-partner? No 05/29/2024 Social Connection and Isolation Panel Answer Date Recorded Frequency of Communication with Friends and Fami ly Not on file 05/29/2024 Frequency of Social Gatherings with Friends and Family Not on file 05/29/2024 Attends Hinduism Services Not on file 05/29 Active Member of Clubs or Organizations Not on f ile 05/29/2024 Attends Club or Organization Meetings Not on gina e 05/29/2024 Are you , , di vorced, , never , or living with a partner? 05/29/2024 PHQ-2 Answer Date Recorded Patient Health Questionnaire-2 Score 0 06/18/2024 Hunger Vital Sign Answer Date Recorded Within the past 12 months, y ou worried that your food would run out before you got the money to buy more. Never true 05/29/20 24 Within the past 12 months, t he food you bought just didn't last and you didn't have money to get more. Never true 05/29/2024 PRAPARE - Transportation Answer Date Re corded In the past 12 months, has l ack of transportation kept you from medical appointments or from getting medications? No 05/08 In the past 12 months, has l ack of transportation kept you from meetings, work, or from getting things needed for daily living? No 05/29/2024 Housing Stability Vital Sign Answer Pete e Recorded In the last 12 months, was t here a time when you were not able to pay the mortgage or rent on time? No 05/29/2024 In the last 12 months, how many places have you lived? 1 05/29/2024 In the last 12 months, was t here a time when you did not have a steady place to sleep or slept in a long term (including now)? No 05/29/2024 Utilities Answer Date Recorded In the past 12 months has th e electric, gas, oil, or water company threatened to shut off services in your home? No 05/29/2024 Comments Unknown Sex and Gender Information Value Date Recorded Sex Assigned at Not on file Legal Sex Female 6:48 PM EDT Gender Identity Not on file Sexual Orientation Not on file Last Filed Vital Signs Vital Sign Reading Time Taken Comments Blood Pressure 130/84 09/23/2024 12:23 PM EST Pulse 79 09/23/2024 12:23 PM EST Temperature 36.4 C (97.5 F) 09/23/2024 12:23 PM EST Respiratory Rate 16 06/15/2024 3:00 AM EDT Oxygen Saturation 98% 09/23/2024 12:23 PM EST Inhaled Oxygen Concentration - - Weight 70.8 kg (156 lb) 09/23/2024 12:23 PM EST Height 162.6 cm (5' 4 ) 09/23/2024 12:23 PM EST Body Mass Index 26.78 09/23/2024 12:23 PM EST Plan of Treatment Health Maintenance Due Date Last Done Comments [facility]-Bone Density Scan 1950 [facility]-Medicare Annual Wellness (AWV) 1950 [facility]-/Child/Adol SDOH Screenings 1950 Diabetes: Dental Exam 1959 [facility]-DTaP,Tdap,and Td Vaccines (1 - Tdap) 1968 CT Colonography 1994 Colonoscopy 1994 FIT-DNA 1994 FIT 1994 FOBT 1994 Sigmoidoscopy 1994 [facility]-Colorectal Cancer Screening 1994 [facility]-Zoster Vaccines (1 of 2) 1999 [id number] Vaccine (2 - season) 2024 05/01/2021 [facility]-Diabetes: Hemoglobin A1C 08/26/2024 05/27/2024, 12/06/2017 [facility]-RSV Vaccine: 60+ Years or (1 - 1-dose 75+ series) 2024 [facility]- SDOH Screenings 11/29/2024 [facility]-Adult SDOH Screenings 11/29/2024 05/29/2024 [facility]-Influenza Vaccine (Season Ended) 2025 08/06/2022, 07/10/2021, 08/01/2020, Additional history exists [facility]-Depression Screening 06/18/2025 06/18/2024 [facility]-Pneumococcal Vaccine: 50+ Years Completed 05/01/2023, 09/15/2018, 09/09/2017 [facility]-Hepatitis C Screening Completed 05/27/2024 [facility]-Obesity Intervention Completed 024, 07/08/2024, 06/18/2024, Additional history exists HPV Vaccines Aged Out No longer eligi ble based on patient's age to complete this topic [facility]-HIB Vaccines Aged Out No longer e ligible based on patient's age to complete this topic [facility]-Hepatitis A Vaccines Aged Out No longer eligible based on patient's age to complete this topic [facility]-IPV Vaccines Aged Out No longer e ligible based on patient's age to complete this topic [facility]-Rotavirus Vaccines Aged Out No lo nger eligible based on patient's age to complete this topic Medical Devices Implanted Type Area Clarifier Operator Helper Device Identifier Shelf Expiration Date Model / Serial / Lot Peg Threaded For Phantom Nail 7.2mm X 80mm - Sna - [id number] Implanted:Qty: 1 on 05/29/2024 by Walter Jade MD at [facility] Implant Right: Ankle [id number] 05/29/2025 [id number] [id number] / NA / Peg Threaded For Phantom Nail 7.2mm X 70mm - Sna - [id number] Implanted:Qty: 1 on 05/29/2024 by Walter Jade MD at [facility] Implant Right: Ankle [id number] 05/29/2025 [id number] [id number] / NA / Peg Threaded For Phantom Nail 5mm X 30mm - Sna - [id number] Implanted:Qty: 1 on 05/29/2024 by Walter Jade MD at [facility] Implant Right: Ankle [id number] 05/29/2025 [id number] 0F / NA / Peg Threaded For Phantom Nail 5mm X 26mm - Sna - [id number] Implanted:Qty: 1 on 05/29/2024 by Walter Jade MD at [facility] Implant Right: Ankle [id number] 05/29/2025 [id number] 6F / NA / Kerwin Kerwin Bilateral : Leg Nail Phantom Activecore 10mm X 300mm - [id number] Implanted:Qty: 1 on 05/29/2024 by Walter Jade MD at [facility] Right: Ankle [id number] 03/26/2027 [id number] 00-[id number] / / [id number] Procedures Procedure Name Priority Date/Time Associated Diagnosis Comments HEPATITIS C ANTIBODY - ED W/REFLEX TO HCV QUANT PCR STAT 05/27/2024 6:57 PM EDT HEMOGLOBIN A1C STAT Add-on 05/27/2024 6:57 PM EDT from Last 3 Months or Most Recently Relevant to Health Maintenance Results * Hepatitis C Antibody - ED (05/27/2024 6:57 PM EDT) Hepatitis C Antibody Negative Negative 05/27/2024 7:49 PM EDT [facility] Blood Venous blood specimen / Unknown Venipuncture / Unknown 05/27/2024 6:57 PM EDT 05/27/2024 7:08 PM EDT Keenan Craig MD LAB BLOOD ORDERABLES Final Re sult [facility] [address] [place] [address] * (ABNORMAL) Hemoglobin A1c (05/27/2024 6:57 PM EDT) Hemoglobin A1c 8.3(H) <5.7 % 05/28/2024 3:54 PM EDT [facility] Blood Venous blood specimen / Unknown Venipuncture / Unknown 05/27/2024 6:57 PM EDT 05/27/2024 7:03 PM EDT Narrative [facility] - 05/28/2024 3:54 PM EDT HA1C Interpretive Data: Diagnosis of Diabetes: Diabetic > or = 6.5% Pre-diabetic 5.7 to 6.4% Non-diabetic < or = 5.6% Glycemic Targets for Type I and Type II Diabetics: Non- Adults <7.0% Adults <6.0% Children and Adolescents <7.5% Source: [place] [employer]. Standards of medical care in diabetes,2017. Diabetes Care.2017:40 (suppl 1):S1-S135. HbA1c assay performed by an ion-exchange chromatography method that is certified traceable to the DCCT. Dakota Owens MD LAB BLOOD ORDERABLES Final Result [facility] [address] [place] [address] from Last 3 Months or Most Recently Relevant to Health Maintenance Insurance [facility] MED[facility] Advance Directives Documents on File Type Date Recorded Patient Accounts Receivable Administrator Expl anation Advance Directives and Livin g Will 06/08/2024 4:32 PM * Full Code (Latest Code Status on File) Date Activated Date Inactivated Comments 05/28/2024 1:05 AM 06/15/2024 11:30 AM Question Answer Comments Patient has decision-making capacity? Yes Care Teams Auditor Medical Claims Relationship Specialty Start Date End Date Davian Sawyer MD [address] [place] [address] [place] [address] PCP - General 02/17/21
--- OUTSIDE RECORDS SUMMARY | 2025-03-18 13:22 | XMS_ITS | Clinical Summary ---
Author Organization [facility] Address [address] [address] Phone Care Team Providers Care Emergency Department Physician Name Role Phone Mateo Berger MD Primary Care Provider [phone] Allergies Active Allergy Reactions Criticality Noted Date Comments Penicillins Rash 01/07/2021 Sulfa (Sulfonamide Antibiotics) Itching 12/2020 Medications lisinopriL (PRINIVIL;ZEST RIL) 10 mg Oral TabletIndicati ons:hypertensi on Take 40 mg by mouth 2 times daily. Indications: high blood pressure Active metFORMIN (GLUMETZA) 1,000 mg Oral Tablet,SR,Ale .Retention,24 hr Take 1,000 mg by mouth daily (with breakfast). Active dilTIAZem (CARDIZEM) 30 mg Oral Tablet Take 120 mg by mouth daily. Active atorvastatin (LIPITOR) 10 mg Oral Tablet Take 40 mg by mouth nightly. Active insulin glargine U-100 (LANTUS) 100 unit/mL SubQ Solution Subcutaneous (Inject under the skin) 15 Units nightly. Active bisoprolol (ZEBETA) 5 mg Oral Tablet Take 10 mg by mouth daily. Active hydroCHLOROthi azide (HYDRODIURIL) 50 mg Oral Tablet Take 50 mg by mouth daily. Active ferrous sulfate 325 mg (65 mg iron) Oral Tablet Take 325 mg by mouth daily. Active escitalopram oxalate (LEXAPRO) 20 mg Oral Tablet Take 20 mg by mouth nightly. Active SITagliptin (JANUVIA) 100 mg Oral Tablet Take 100 mg by mouth nightly. Active doxazosin (CARDURA) 4 mg Oral Tablet Take 4 mg by mouth nightly. Active oxyCODONE-acet aminophen (PERCOCET) 5-325 mg Oral Tablet Take 1 Tab by mouth every 6 hours as needed for Acute Pain (R52). 12 Tab 1 Active alendronate (FOSAMAX) 35 mg Oral Tablet Take 35 mg by mouth once a week. 1 Active enoxaparin (LOVENOX) SubQ Syringe 40 mg/0.4 mL 1 Active atorvastatin (LIPITOR) 40 mg Oral Tablet 1 Active bisoprolol (ZEBETA) 10 mg Oral Tablet 1 Active dilTIAZem 180 mg Oral Capsule, Sust. Release 24 hr 1 Active ferrous sulfate 325 mg (65 mg iron) Oral Tablet, Delayed Release (E.C.) Take 1 Tab by mouth daily. 1 Active LANTUS SOLOSTAR U-100 INSULIN 100 unit/mL (3 mL) SubQ Insulin Pen 1 Active lisinopriL (PRINIVIL;ZEST RIL) 40 mg Oral Tablet 1 Active metFORMIN (GLUCOPHAGE) 1,000 mg Oral Tablet 1 Active TRULICITY 1.5 mg/0.5 mL SubQ Pen Injector INJECT 1 PEN SUBCUTANEOUSLY ONCE A WEEK 2 Active mirtazapine (REMERON) 15 mg Oral Tablet Take 15 mg by mouth nightly. 2 Active BD ULTRA-FINE MICRO PEN NEEDLE 32 gauge x 1/4 Misc Needle USE ONCE DAILY WITH INSULIN 2 Active Active Problems Problem Noted Date Diagnosed Date Bilateral wrist pain 02/21/2022 Chronic pain of both knees 02/21/2022 S/P left knee surgery 02/24/2021 Uncontrolled type 2 diabetes mellitus with hyper glycemia 01/13/2021 UTI (urinary tract infection) 01/13/2021 Anemia 01/13/2021 HEATHER (acute kidney injury) 01/10/2021 HTN (hypertension) 01/08/2021 HLD (hyperlipidemia) 01/08/2021 Closed fracture of proximal end of left tibia an d fibula 01/07/2021 Closed fracture of left fibula and tibia 021 Closed comminuted intra-shanna cular fracture of distal end of right femur Surgical History Surgery Date Site/Laterality Comments TIBIA FRACTURE SURGERY 01/10/2021 Left TIBIA TUBERCLE PROXIMAL OPEN REDUCTION INTERNAL FIXATION LEFT; Surgeon: Jesus Kelley MD; Location: [facility]; Service: Orthopedics Medical devices from this surgery are in the Medical Devices section. FEMUR FRACTURE SURGERY 01/12/2021 Right OPEN REDUCTION INTERNAL FIXATION RIGHT DISTAL FEMUR FRACTURE; Surgeon: Gary Long MD; Location: [facility]; Service: Orthopedics Medical devices from this surgery are in the Medical Devices section. Medical History Medical History Date Comments Hypertension Social History Tobacco Use Types Packs/Day Years Used Date Smoking Tobacco: Never Smokeless Tobacco: Never Alcohol Use Standard Drinks/Week Comments Not Currently 0 (1 standard drink = 0.6 oz pur e alcohol) Comments No Sex and Gender Information Value Date Recorded Sex Assigned at Not on file Legal Sex Female 10:31 AM EDT Gender Identity Not on file Sexual Orientation Not on file Obstetrics History Last Filed Vital Signs Vital Sign Reading Time Taken Comments Blood Pressure 171/68 01/18/2021 12:46 PM EDT Pulse 71 01/18/2021 12:46 PM EDT Temperature 37.1 C (98.7 F) 01/18/2021 12:46 PM EDT Respiratory Rate 18 01/18/2021 12:46 PM EDT Oxygen Saturation 97% 01/18/2021 12:46 PM EDT Inhaled Oxygen Concentration - - Weight 67.1 kg (148 lb) 02/08/2022 11:14 AM EDT Height 162.6 cm (5' 4 ) 02/08/2022 11:14 AM EDT Body Mass Index 25.4 02/08/2022 11:14 AM EDT Plan of Treatment Health Maintenance Due Date Last Done Comments Wellness Exam Medicare 1952 Lipids 1959 Microalbuminuria 1959 Diabetic Eye Exam 1967 Hepatitis C Screening 1967 DTaP/TDaP/Td (1 - Tdap) 1968 Cologuard 1994 Colon Cancer Screening 1994 Colonoscopy 1994 FIT 1994 Sigmoidoscopy 1994 Virtual Colonography 1994 Zoster (1 of 2) 1999 Bone Density Screening 2014 Pneumococcal Vaccine 50+ (2 of 2 - PPSV23) 11/10/2018 09/15/2018, 09/09/2017 Hemoglobin A1c 07/15/2021 01/13/2021, 12/06/2017 COVID-19 Vaccine (2023-2 5 season) 2024 RSV or 60+ (1 - 1-dose 75+ series) 2024 Influenza Vaccine (Season Ended) 2025 08/06/2022, 07/10/2021, 08/01/2020, Additional history exists Hepatitis B Vaccine Aged Out No longe r eligible based on patient's age to complete this topic Meningococcal B Vaccine Aged Out No l onger eligible based on patient's age to complete this topic Medical Devices Implanted Type Area Transcriptionist Device Identifier Shelf Expiration Date Model / Serial / Lot Plate Tibia Proximal Lateral 4 Hole L121mm Left - [id number] Implanted:Qty: 1 on 01/10/2021 by Jesus Kelley MD at [facility] Left: Tibia BETTY:ORTHOPEDI CS [id number] / / [place] Sut Swivelk C 4.75x19.1mm Arscp Ft Kntls Twist-In [place] - [id number] Implanted:Qty: 1 on 01/10/2021 by Jesus Kelley MD at [facility] Left: Tibia ARTHREX 07/06/2024 [id number] T / / [id number] [place] Sut Swivelk C 4.75x19.1mm Arscp Ft Kntls Twist-In [place] - [id number] Implanted:Qty: 1 on 01/10/2021 by Jesus Kelley MD at [facility] Left: Tibia ARTHREX 07/06/2024 AR-2324BCC T / / [id number] Screw Locking 4.0mm X L26mm - [id number] Implanted:Qty: 2 on 01/10/2021 by Jesus Kelley MD at [facility] Left: Tibia BETTY:ORTHOPEDI CS [id number] / / Screw Locking 4.0mm X L46mm - [id number] Implanted:Qty: 1 on 01/10/2021 by Jesus Kelley MD at [facility] Left: Tibia BETTY:ORTHOPEDI CS [id number] / / Screw Bn 4mm 60mm Ti St Lck Ns Axsos 3 - [id number] Implanted:Qty: 1 on 01/10/2021 by Jesus Kelley MD at [facility] Left: Tibia BETTY:ORTHOPEDI CS [id number] / / Screw Bn 4mm 65mm Axsos [address] Ns - [id number] Implanted:Qty: 1 on 01/10/2021 by Jesus Kelley MD at [facility] Left: Tibia BETTY:ORTHOPEDI CS [id number] / / Screw Locking 4.0mm X L70mm - [id number] Implanted:Qty: 1 on 01/10/2021 by Jesus Kelley MD at [facility] Left: Tibia BETTY:ORTHOPEDI CS [id number] / / Screw Locking 4.0mm X L80mm - [id number] Implanted:Qty: 1 on 01/10/2021 by Jesus Kelley MD at [facility] Left: Tibia BETTY:ORTHOPEDI CS [id number] / / Screw Bn 3.5mm 32mm Ti Kunal Lck Ns Axsos 3 - [id number] Implanted:Qty: 1 on 01/10/2021 by Jesus Kelley MD at [facility] Left: Tibia BETTY:ORTHOPEDI CS [id number] / / Screw Cancellous Ti 4.0 X L65mm Full Thread - [id number] Implanted:Qty: 1 on 01/10/2021 by Jesus Kelley MD at [facility] Left: Tibia BETTY:ORTHOPEDI CS [id number] / / Screw 4.5x60mm Comp Lck Cortx Lcp Ft Sd/St Revct Flut Wrst - [id number] Implanted:Qty: 1 on 01/12/2021 by Vannessa Long MD at [facility] Right: Femur SYNTHES-STRATEC:S YNTHES [place] 214.860 / / Plate Condylar Curved Lcp Variable Angle 4.5 X 10-Hole 230mm Right - [id number] Implanted:Qty: 1 on 01/12/2021 by Vannessa Long MD at [facility] Right: Femur SYNTHES-STRATEC:S YNTHES [place] 02.124.410 / / Screw Cannulated Conical 5.0mm X 75mm With 4.0mm Hexagonal Socket Stainless Steel - [id number] Implanted:Qty: 1 on 01/12/2021 by Vannessa Long MD at [facility] Right: Femur SYNTHES-STRATEC:S YNTHES [place] 02.205.275 / / Screw Bn 5mm 3.5mm 65mm Ss Cndrl Va Slf Drl Lck Cnn Ns - [id number] Implanted:Qty: 1 on 01/12/2021 by Vannessa Long MD at [facility] Right: Femur SYNTHES-STRATEC:S YNTHES [place] 02.231.665 / / Screw Bn 5mm 3.5mm 70mm Ss Cndrl Va Slf Drl Lck Cnn Ns - [id number] Implanted:Qty: 3 on 01/12/2021 by Vannessa Long MD at [facility] Right: Femur SYNTHES-STRATEC:S YNTHES [place] 02.231.670 / / Screw Bn 5mm 36mm Ss T25 Cnd[address] Va St Lck Strdr Ns Periart - [id number] Implanted:Qty: 1 on 01/12/2021 by Vannessa Long MD at [facility] Right: Femur SYNTHES-STRATEC:S YNTHES [place] 02.231.236 / / Screw 4.5x32mm Comp Lck Cortx Lcp Ft Sd/St Revct Flut Wrst - [id number] Implanted:Qty: 2 on 01/12/2021 by Vannessa Long MD at [facility] Right: Femur SYNTHES-STRATEC:S YNTHES [place] 214.832 / / Screw 4.5x34mm Comp Lck Cortx Lcp Ft Sd/St Revct Flut Wrst - [id number] Implanted:Qty: 1 on 01/12/2021 by Vannessa Long MD at [facility] Right: Femur SYNTHES-STRATEC:S YNTHES [place] 214.834 / / Screw Bn 5mm 32mm Ss T25 [address] Lck Strdr Ns Periart - [id number] Implanted:Qty: 1 on 01/12/2021 by Vannessa Long MD at [facility] Right: Femur SYNTHES-STRATEC:S YNTHES [place] 02.231.232 / / Screw 4.5x56mm Comp Lck Cortx Lcp Ft Sd/St Revct Flut Wrst - [id number] Implanted:Qty: 2 on 01/12/2021 by Vannessa Long MD at [facility] Right: Femur SYNTHES-STRATEC:S YNTHES [facility] 214.856 / / Procedures Procedure Name Priority Date/Time Associated Diagnosis Comments HEMOGLOBIN A1C Add-On 01/13/2021 6:16 AM EDT from Last 3 Months or Most Recently Relevant to Health Maintenance Results * (ABNORMAL) HEMOGLOBIN A1C (01/13/2021 6:16 AM EDT) [facility] Hgb A1C 7.0(H) 4.2 - 5.6 % 01/14/2021 8:50 AM EDT [employer] Est. Avg Glucose 154 mg/dL 01/14/2021 8:50 AM EDT [employer] Blood VENOUS BLOOD / Unknown Venipuncture / Unknown 01/13/2021 6:16 AM EDT 01/13/2021 6:24 AM EDT [facility] [employer] - 01/14/2021 8:50 AM EDT REFERENCE RANGE: Normal: 4.0-5.6% Pre-diabetes: 5.7-6.4% Provisional diagnosis of diabetes: >6.4% Hgb F>10% and anything which shortens red cell survival, such as hemolytic anemia, or unstable hemoglobin variants such as HbSS, HbSC, or HbCC, will lower the HbA1c value associated with a given level of glycemic control. us Sanju Raines DO CHEMISTRY ORDERABLES Final R esult [facility] [address] [place] [address] from Last 3 Months or Most Recently Relevant to Health Maintenance Insurance HUMANA MEDICARE PPO MR HUMANA MEDICARE PPO MR HUMANA MEDICARE PPO MR Advance Directives For more information, please contact: [phone] * Full Code (Latest Code Status on File) Date Activated Date Inactivated Comments 01/07/2021 11:02 PM 01/18/2021 5:10 PM Care Teams Emergency Department Physician Relationship Specialty Start Date End Date Mateo Berger MD PCP - General Family Medicine 02/18/13
== END 2025-03-18 23:59 | disposition home or self-care (01) ==
LOC: LAB 11:34
PROVIDERS: PCP Internal Medicine Adolescent Medicine; Visit Provider Physician Assistant
DX: I95.9 Hypotension, unspecified (principal); D64.9 Anemia, unspecified; R11.0 Nausea; Z90.49 Acquired absence of other specified parts of digestive tract
CPT/HCPCS: 36415; 80053; 83690; 85025

== ENCOUNTER 2025-03-18 16:25 | Emergency (ER) | payer MEDICARE, SELFPAY ==
--- OUTSIDE RECORDS SUMMARY | 2025-03-18 16:32 | XMS_ITS | Clinical Summary ---
Author Organization [facility] Address [address] [place] [address] Phone Care Team Providers Care Filing Or Registry Clerk Name Role Phone Mateo Berger MD Primary Care Provider [phone] Allergies Active Allergy Reactions Criticality Noted Date [...] this topic Medical Devices Implanted Type Area Wallpaper Scraper Device Identifier Shelf Expiration Date Model / Serial / Lot Plate Tibia Proximal Lateral 4 Hole L121mm Left - [id number] Implanted:Qty: 1 on 01/10/2021 by Jesus Kelley MD at [facility] Left: Tibia BETTY:ORTHOPEDI CS [id number] / / [place] Sut Swivelk C 4.75x19.1mm Arscp Ft Kntls Twist-In [place] - [id number] Implanted:Qty: 1 on 01/10/2021 by Jesus Kelley MD at [facility] Left: Tibia ARTHREX 07/06/2024 AR-2324BCC T / / [id number] [place] Sut Swivelk C 4.75x19.1mm Arscp Ft Kntls Twist-In [place] - [id number] Implanted:Qty: 1 on 01/10/2021 by Jesus Kelley MD at [facility] Left: Tibia ARTHREX 07/06/2024 AR-2324BCC T / / [id number] Screw Locking 4.0mm X L26mm - [id number] Implanted:Qty: 2 on 01/10/2021 by Jesus Kelley MD at [facility] Left: Tibia BETTY:ORTHOPEDI CS [id number] / / Screw Locking 4.0mm X L46mm - [id number] Implanted:Qty: 1 on 01/10/2021 by Jesus Kelley MD at [facility] Left: Tibia BETTY:ORTHOPEDI CS [id number] / / Screw Bn 4mm 60mm Ti St Lck Ns Axsos 3 - [id number] Implanted:Qty: 1 on 01/10/2021 by Jesus Kelley MD at [facility] Left: Tibia BETTY:ORTHOPEDI CS [id number] / / Screw Bn 4mm 65mm Axsos [address] Ns - [id number] Implanted:Qty: 1 on 01/10/2021 by Jesus Kelley MD at [facility] Left: Tibia BETTY:ORTHOPEDI CS [id number] / / Screw Locking 4.0mm X L70mm - [id number] Implanted:Qty: 1 on 01/10/2021 by Jesus Kelley MD at [facility] Left: Tibia BETTY:ORTHOPEDI CS [id number] / / Screw Locking 4.0mm X L80mm - [id number] Implanted:Qty: 1 on 01/10/2021 by Jesus Kelley MD at [facility] Left: Tibia BETTY:ORTHOPEDI CS [id number] / / Screw Bn 3.5mm 32mm Ti Kunal Lck Ns Axsos 3 - [id number] Implanted:Qty: 1 on 01/10/2021 by Jesus Kelley MD at [facility] Left: Tibia BETTY:ORTHOPEDI CS [id number] / / Screw Cancellous Ti 4.0 X L65mm Full Thread - [id number] Implanted:Qty: 1 on 01/10/2021 by Jesus Kelley MD at [facility] Left: Tibia BETTY:ORTHOPEDI CS [id number] / / Screw 4.5x60mm Comp Lck Cortx Lcp Ft Sd/St Revct Flut Wrst - [id number] Implanted:Qty: 1 on 01/12/2021 by Vannessa Long MD at [facility] Right: Femur SYNTHES-STRATEC:S YNTHES [place] 214.860 / / Plate Condylar Curved Lcp Variable Angle 4.5 X 10-Hole 230mm Right - [id number] Implanted:Qty: 1 on 01/12/2021 by Vannessa Long MD at [facility] Right: Femur SYNTHES-STRATEC:S YNTHES [place] 02.124.410 / / Screw Cannulated Conical 5.0mm X 75mm With 4.0mm Hexagonal Socket Stainless Steel - [id number] Implanted:Qty: 1 on 01/12/2021 by Vannessa Long MD at [facility] Right: Femur SYNTHES-STRATEC:S YNTHES [place] 02.205.275 / / Screw Bn 5mm 3.5mm 65mm Ss Cndrl Va Slf Drl Lck Cnn Ns - [id number] Implanted:Qty: 1 on 01/12/2021 by Vannessa Long MD at [facility] Right: Femur SYNTHES-STRATEC:S YNTHES [place] 02.231.665 / / Screw Bn 5mm 3.5mm 70mm Ss Cndrl Va Slf Drl Lck Cnn Ns - [id number] Implanted:Qty: 3 on 01/12/2021 by Vannessa Long MD at [facility] Right: Femur SYNTHES-STRATEC:S YNTHES [place] 02.231.670 / / Screw Bn 5mm 36mm Ss T25 C[address] St Lck Strdr Ns Periart - [id number] Implanted:Qty: 1 on 01/12/2021 by Vannessa Long MD at [facility] Right: Femur SYNTHES-STRATEC:S YNTHES [place] 02.231.236 / / Screw 4.5x32mm Comp Lck Cortx Lcp Ft Sd/St Revct Flut Wrst - [id number] Implanted:Qty: 2 on 01/12/2021 by Vannessa Long MD at [facility] Right: Femur SYNTHES-STRATEC:S YNTHES [place] 214.832 / / Screw 4.5x34mm Comp Lck Cortx Lcp Ft Sd/St Revct Flut Wrst - [id number] Implanted:Qty: 1 on 01/12/2021 by Vannessa Long MD at [facility] Right: Femur SYNTHES-STRATEC:S YNTHES [place] 214.834 / / Screw Bn 5mm 32mm Ss T25 [address] Lck Strdr Ns Periart - [id number] Implanted:Qty: 1 on 01/12/2021 by Vannessa Long MD at [facility] Right: Femur SYNTHES-STRATEC:S YNTHES [place] 02.231.232 / / Screw 4.5x56mm Comp Lck Cortx Lcp Ft Sd/St Revct Flut Wrst - [id number] Implanted:Qty: 2 on 01/12/2021 by Vannessa Long MD at [facility] Right: Femur SYNTHES-STRATEC:S YNTHES [facility] 214.856 / / Procedures Procedure Name Priority Date/Time Associated Diagnosis Comments HEMOGLOBIN A1C Add-On 01/13/2021 6:16 AM EDT from Last 3 Months or Most Recently Relevant to Health Maintenance Results * (ABNORMAL) HEMOGLOBIN A1C (01/13/2021 6:16 AM EDT) [facility] Hgb A1C 7.0(H) 4.2 - 5.6 % 01/14/2021 8:50 AM EDT [facility] [employer] Est. Avg Glucose 154 mg/dL 01/14/2021 8:50 AM EDT [facility] [employer] Blood VENOUS BLOOD / Unknown Venipuncture / Unknown 01/13/2021 6:16 AM EDT 01/13/2021 6:24 AM EDT [facility] [employer] - 01/14/2021 8:50 AM EDT REFERENCE RANGE: Normal: 4.0-5.6% Pre-diabetes: 5.7-6.4% Provisional diagnosis of diabetes: >6.4% Hgb F>10% and anything which shortens red cell survival, such as hemolytic anemia, or unstable hemoglobin variants such as HbSS, HbSC, or HbCC, will lower the HbA1c value associated with a given level of glycemic control. us Sanju Raines DO CHEMISTRY ORDERABLES Final R esult [facility] [address] , [place] [address] from Last 3 Months or Most Recently Relevant to Health Maintenance Insurance HUMANA MEDICARE PPO MR HUMANA MEDICARE PPO MR HUMANA MEDICARE PPO MR Advance Directives For more information, please contact: [phone] * Full Code (Latest Code Status on File) Date Activated Date Inactivated Comments 01/07/2021 11:02 PM 01/18/2021 5:10 PM Care Teams Filing Or Registry Clerk Relationship Specialty Start Date End Date Mateo Berger MD PCP - General Family Medicine 02/18/13
--- OUTSIDE RECORDS SUMMARY | 2025-03-18 16:33 | XMS_ITS ---
Author Organization [facility] Care Team Providers Care Drop Wire Hanger Name Role Phone Jagruti Tee (Helen) Unavailable Unavail able Davian Sawyer Unavailable Unavailable Allergies and adverse reactions Code CodeSystem Substance Reaction Severity StartDate Concern Status 464877664 SNOMED CT Sulfa Antibiotics Unknown 01/18/2021 active PENICILLIN Moderate 12/12/2017 active Care Team Name Role Address Phone Organization Dates Davian Sawyer PCP [address], [place], [address], [facility] (Office): [facility] 01/18/2021 - 04/14/2021 Jagruti (Helen) [place], [address], [facility] (Office): : [facility] 01/18/2021 - 04/14/2021 Goals Section Goals Description Status Target Date [place] will demonstrate the ap propriate use of adaptive device(s) to increase mobility - through the review date. Device:wheelchair Active 05/02/2021 [place] will improve current le melany of function in: Bed Mobility, Transfers, Dressing, Toilet Use and Personal Hygiene, ADL Score) - through the review date, as physician guides her weight bearing ability Active 05/02/2021 [place] will remain free from s kin breakdown due to incontinence and brief use - through the review date. Active 05/02/2021 [place] will remain free of com plications related [...] to meet needs before discharge. Active 05/02/2021 [place] will be free from infec tion - [...] through the review da te. Active 05/02/2021 [place] will be free of symptom s of dehydration and maintain moist mucous membranes, good skin turgor. - thru next review Active 05/02/2021 [place] will have intact skin, free of redness, blisters or discoloration - through review date. Active 05/02/2021 [place] will have no complicati ons related to [...] ehydration - thru next review Active 05/02/2021 [place] will remain free of s/s x of distress, symptoms of depression, anxiety or sad mood - by/through review date. Active 05/02/2021 [place] will verbalize adequate relief of pain or ability to cope with incompletely relieved pain - through the review date. Active 05/02/2021 [place] will) demonstrate correct administration of medications. Active 05/02/2021 [place] will) verbalize/communi melissa and understanding of the [...] completed tuberculin skin test; unspecified formulation lotNumber: [id number] expiry: 06/25/2022 Mfg: Sandfi pasteur Given 0.1 [...] Concern Status 1 OTHER REDUCED MOBILITY [address] active 2 ACUTE KIDNEY FAILURE, UNSPECIFIED [address] active 3 ANEMIA, UNSPECIFIED [address] active 4 ESSENTIAL (PRIMARY) HYPERTENSION [address] active 5 HYPERLIPIDEMIA, UNSPECIFIED [address] active 6 MUSCLE WEAKNESS (GENERALIZED) [address] active 7 NONDISPLACED FRACTURE OF LATERAL CONDYLE OF LEFT TIBIA, SUBSEQUENT ENCOUNTER FOR CLOSED FRACTURE WITH ROUTINE HEALING [address] active 8 OTHER RECURRENT DEPRESSIVE DISORDERS [address] active 9 PERSONAL HISTORY OF OTHER DISEASES OF THE CIRCULATORY SYSTEM [address] active 10 TYPE 2 DIABETES MELLITUS WITH HYPERGLYCEMIA [address] active 11 TYPE 2 DIABETES MELLITUS WITHOUT COMPLICATIONS [address] active 12 UNSPECIFIED FALL, SEQUELA [address] active 13 UNSPECIFIED FRACTURE OF LOWER END OF RIGHT FEMUR, SUBSEQUENT ENCOUNTER FOR CLOSED FRACTURE WITH ROUTINE HEALING [address] active 14 URINARY TRACT INFECTION, SITE NOT SPECIFIED [address] active 15 ACUTE RESPIRATORY FAILURE WITH HYPOXIA 8 01/18/[address] completed 16 ATHEROSCLEROTIC HEART DISEASE OF [place] CORONARY ARTERY 8 01/18/[address] completed 17 CHRONIC VENOUS HYPERTENSION (IDIOPATHIC) 8 01/18/[address] completed 18 DIABETES MELLITUS DUE TO UNDERLYING CONDITION 8 01/18/[address] completed 19 DISPLACED FRACTURE OF LATERAL CONDYLE OF RIGHT TIBIA, INITIAL ENCOUNTER FOR OPEN FRACTURE TYPE I OR II 8 01/18/[address] completed 20 DISPLACED SUPRACONDYLAR FRACTURE WITHOUT INTRACONDYLAR EXTENSION OF LOWER END OF RIGHT FEMUR, INITIAL ENCOUNTER FOR CLOSED FRACTURE 8 01/18/[address] completed 21 HISTORY OF FALLING 8 01/18/[address] completed 22 HYPERLIPIDEMIA, UNSPECIFIED 8 01/18/[address] completed 23 OTHER SEPSIS 8 01/18/[address] completed Reason for Referral No Reasons for Referral Entered Social History Social History Observation Description Start Date End Date Code Code System Current Smoking Status Tobacco smoking consumption unknown 426127519 SNOMED CT Sex Assigned At Female 1950 00956-2 [facility] Gender Identity Vital Signs Code Code System Vitals Name Values and Units Timing Information 9279-1 [facility] Respiratory Rate Value=20.0 Units=/m in 04/14/2021 8462-4 [facility] Blood Pressure-Diastolic Value=61 Un its=mmHg 04/14/2021 8480-6 [facility] Blood Pressure-Systolic Wmevs=509 Un its=mmHg 04/14/2021 8310-5 [facility] Body Temperature Value=98.1 Units= F 04/14/2021 8867-4 [facility] Heart rate Value=74.0 Units=/min 06/2021 2339-0 [facility] Blood Sugar Mhdlo=505.0 Units=mg/dL 04/14/2021 58488-8 [facility] O2 % dC Oximetry Value=98.0 Units= % 04/14/2021 45933-0 [facility] Pain Level Value=0.0 04/14/2021 94704-7 [facility] Weight Cailf=468.8 Units=Lbs 10/2020 8302-2 [facility] Height Value=65.0 Units=Inches 01/18/2021
--- OUTSIDE RECORDS SUMMARY | 2025-03-18 16:33 | XMS_ITS | Clinical Summary ---
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 No 05/29/2024 Utilities Answer Date [...] 1994 UKY-Zoster Vaccines (1 of 2) 1999 [id number] Vaccine (2 - season) 2024 05/01/2021 UKY-Diabetes: [...] this topic Medical Devices Implanted Type Area Air Box Tester Device Identifier Shelf Expiration Date Model / Serial / Lot Peg Threaded For Phantom Nail 7.2mm X 80mm - Sna - [id number] Implanted:Qty: 1 on 05/29/2024 by Walter Jade MD at [facility] Implant Right: Ankle [employer] [id number] 05/29/2025 [id number] / NA / Peg Threaded For Phantom Nail 7.2mm X 70mm - Sna - [id number] Implanted:Qty: 1 on 05/29/2024 by Walter Jade MD at [facility] Implant Right: Ankle [place] [id number] 05/29/2025 [id number] / NA / Peg Threaded For Phantom Nail 5mm X 30mm - Sna - [id number] Implanted:Qty: 1 on 05/29/2024 by Walter Jade MD at [facility] Implant Right: Ankle [employer] [id number] 05/29/2025 [id number] / NA / Peg Threaded For Phantom Nail 5mm X 26mm - Sna - [id number] Implanted:Qty: 1 on 05/29/2024 by Walter Jade MD at [facility] Implant Right: Ankle [place] [id number] 05/29/2025 [id number] / NA / Kerwin Kerwin Bilateral : Leg Nail Phantom [employer] 10mm X 300mm - [id number] Implanted:Qty: 1 on 05/29/2024 by Walter Jade MD at [facility] Right: Ankle [place] [id number] 03/26/2027 [id number] / / [id number] Procedures Procedure Name Priority Date/Time Associated Diagnosis [...] 6:57 PM EDT 05/27/2024 7:08 PM EDT Kenean Craig MD LAB BLOOD ORDERABLES Final Re sult [facility] [address] [place] [address] * (ABNORMAL) Hemoglobin A1c (05/27/2024 6:57 PM [...] Adults <6.0% Children and Adolescents <7.5% Source: [place] [employer]. Standards of medical care in diabetes,2017. Diabetes Care.2017:40 (suppl 1):S1-S135. HbA1c assay performed by an ion-exchange chromatography method that is certified traceable to the DCCT. Dakota Owens MD LAB BLOOD ORDERABLES Final Result [facility] [address] [place] [address] from Last 3 Months or Most Recently Relevant to Health Maintenance Insurance [facility] MEDICARE Advance Directives Documents on File Type Date Recorded Patient Education Department Registrar Expl anation Advance Directives and Livin g Will 06/08/2024 4:32 PM * Full Code (Latest Code Status on File) Date Activated Date Inactivated Comments 05/28/2024 1:05 AM 06/15/2024 11:30 AM Question Answer Comments Patient has decision-making capacity? Yes Care Teams Piano Case And Bench Assembler Relationship Specialty Start Date End Date Davian Sawyer MD [address] [place] [address] [place] [address] PCP - General 02/17/21
[2025-03-18 16:46] VITALS: BP 186/79; PULSE 81; RESP 17; TEMP 36.8; O2SAT 97; BMI 39.5
--- NOTE | 2025-03-18 16:46 | XR_ITS ---
PROCEDURE INFORMATION: Exam: XR Chest Exam date and time: 03/18/2025 4:58 PM Age: 74 years old Clinical indication: Other: Post-op leukocytosis, cough TECHNIQUE: Imaging protocol: Radiologic exam of the chest. Views: 1 view. COMPARISON: CT CHEST W CON 03/05/2025 8:30 PM FINDINGS: Lungs: Chronic interstitial changes. Basilar atelectasis more prominent on the right. Pleural spaces: Unremarkable. No pleural effusion. No pneumothorax. Heart/Mediastinum: Moderate stable cardiomegaly. Bones/joints: Unremarkable. IMPRESSION: Chronic interstitial changes. Basilar atelectasis more prominent on the right. Moderate stable cardiomegaly.
--- NOTE | 2025-03-18 16:52 | HMH.EDGENADL ---
Discharge Plan Disposition Patient Disposition: Home, Self-Care Prescriptions Prescriptions: New cefdinir 300 mg capsule 300 mg PO BID 10 Days Qty: 20 0RF No Action lisinopril 40 mg tablet 40 mg PO BID loratadine 10 mg tablet 10 mg PO Patient Comments: TAKE 1 TABLET BY MOUTH EVERY DAY atorvastatin 40 mg tablet 40 mg PO HS Soliqua 100/33 100 unit-33 mcg/mL insulin pen 25 unit SQ DAILY Patient Comments: INJECT 25 UNITS SUBCUTANEOUSLY EVERY DAY ferrous sulfate [FeroSul] 325 mg (65 mg iron) tablet 325 mg PO DAILY Patient Comments: TAKE 1 TABLET BY MOUTH EVERY DAY diltiazem HCl 90 mg tablet 90 mg PO DAILY Patient Comments: TAKE ONE (1) TABLET BY MOUTH TWICE DAILY dapagliflozin propanediol [Farxiga] 10 mg tablet 10 mg PO DAILY Patient Comments: TAKE ONE (1) TABLET BY MOUTH DAILY metformin 1,000 mg tablet 1,000 mg PO DAILY Patient Comments: TAKE 1 TABLET BY MOUTH EVERY DAY doxazosin 4 mg tablet 4 mg PO DAILY Patient Comments: TAKE 1 TABLET BY MOUTH EVERY DAY aspirin 81 MG tablet,chewable 81 mg PO DAILY Referrals Follow up/Referrals: Davian Sawyer MD [Primary Care Provider, Internal Medicine] - See instructions Activity Restrictions/Add. Instructions Additional Instructions/Restrictions: You were evaluated in the emergency department today. 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 Make sure you stay hydrated. Make sure that you keep your bottom clean and dry. Follow-up closely with primary care for reassessment. Return to the emergency department for new or worsening symptoms. Clinical Impressions Clinical Impression: Acute UTI, Right lower lobe pneumonia Instructions Patient Instructions: DI for Pneumonia -- Adult, DI for Urinary Tract Infection (UTI) Print Language Print Language: Upper Sorbian Discharge ED Provider: Mable Barr General Adult HPI General Chief complaint: Recheck/Abnormal Lab/Rx Stated complaint: abnormal labs, referred from MD office Time Seen by Provider: 03/18/25 16:32 History of Present Illness HPI narrative: This patient is a 74-year-old female with a history of hypertension, hyperlipidemia, CAD, general debility, diabetes, and recent cholecystectomy for calculus cholecystitis 03/07/2025 presenting to the emergency department for evaluation with concern for high white blood cell count obtained at outpatient clinic. According to the patient, she had been doing well postoperatively with only some mild intermittent nausea, no concerns or complaints of fevers, pain, or other concerns. On review of systems, she does note that she has had a mild cough, nothing too significant. Of note, she typically uses a female urinal but has not been doing that and has been doing briefs the last little bit since going home. She saw her surgeon today and was noted to have slightly low blood pressure in clinic, so she was referred to her PCPs office for further assessment. There, they did lab evaluation that was concerning for a leukocytosis of 16. Given this and the borderline low blood pressure, they advised that the patient come to the ED for evaluation with concern for possible infection. Patient denies any other concerns or complaints states she is feeling a whole lot better than she was when she was last admitted. Related Data Home Medications ?Medication ?Instructions ?Recorded ?Confirmed aspirin 81 mg chewable tablet 81 mg PO DAILY CAD 12/30/17 03/18/25 atorvastatin 40 mg tablet 40 mg PO HS 05/13/18 03/18/25 lisinopril 40 mg tablet 40 mg PO BID BLOOD PRESSURE 05/27/18 03/18/25 dapagliflozin propanediol 10 mg 10 mg PO DAILY 03/06/25 03/18/25 tablet (Farxiga) diltiazem HCl 90 mg tablet 90 mg PO DAILY 03/06/25 03/18/25 doxazosin 4 mg tablet 4 mg PO DAILY 03/06/25 03/18/25 ferrous sulfate 325 mg (65 mg 325 mg PO DAILY 03/06/25 03/18/25 iron) tablet (FeroSul) insulin glargine 100 25 unit SQ DAILY 03/06/25 03/18/25 unit-lixisenatide 33 mcg/mL subcutaneous pen (Soliqua 100/33) metformin 1,000 mg tablet 1,000 mg PO DAILY 03/06/25 03/18/25 loratadine 10 mg tablet 10 mg PO 03/18/25 03/18/25 Previous Rx's ?Medication ?Instructions ?Recorded cefdinir 300 mg capsule 300 mg PO BID 10 days #20 caps 03/18/25 Allergies Allergy/AdvReac Type Severity Reaction Status Date / Time Penicillins Allergy Hives Verified 03/18/25 09:48 Sulfa (Sulfonamide Allergy Hives Verified 03/18/25 09:48 Antibiotics) [facility] Disclaimer: The information contained in this section may have been updated after the patient was seen, as this information can be updated by other users. Medical History (Updated 03/18/25 @ 18:05 by Mable Barr DO) Hyperglycemia Chest pain Diabetes mellitus Elbow fracture, right Malignant essential hypertension Hypertensive emergency History of recent fall Rhabdomyolysis PSVT (paroxysmal supraventricular tachycardia) Open fracture ankle, trimalleolar Cataract Femur fracture, right Femur fracture, left Anxiety Anemia Diabetes CAD (coronary artery disease) HLD (hyperlipidemia) HTN (hypertension) Surgical History (Updated 03/18/25 @ 17:43 by Lily Hernandez RN) S/P laparoscopic cholecystectomy Hx of colonoscopy Social History Smoking Status: Never smoker alcohol intake: never substance use type: denies use current occupational status: retired and disabled Travel in the last 8 weeks?: None Have you lived/traveled outside US in past 30 days?: No Contact w/someone who lives/traveled outside US past 30 days?: No Exposure to someone with infectious disease in past 14 days?: No Do you have a fever (greater than 100.4 F or 38 C)?: No Have you tested positive for COVID-19?: No Exposed to someone with COVID-19 in past 14 days?: No Do you have a sore throat?: No Do you have a cough?: No Do you have any weakness?: No Do you have any diarrhea?: No Are you experiencing any unusual bleeding?: No Do you have any muscle aches/pain?: No Do you have any abdominal pain?: No Are you experiencing loss of taste or smell?: No Other Medical History Have you received the Flu Vaccine for this season: No Have you received the Pneumonia Vaccine: No ROS Obtained: Yes All systems reviewed & no additional complaints except as documented Physical Exam General General appearance: alert, in no apparent distress and obese Head Head exam: atraumatic and normocephalic Eye Eye exam: Present normal appearance, PERRL and EOMI ENT ENT exam: Present normal exam, normal oropharynx, mucous membranes moist and normal external ear exam Neck Neck exam: Present normal inspection, full ROM and trachea midline; Absent tenderness Chest Chest inspection: Present normal inspection and symmetric chest wall rise; Absent tenderness Respiratory Respiratory exam: Present normal lung sounds bilaterally; Absent respiratory distress, wheezes, stridor or accessory muscle use Cardiovascular Cardiovascular exam: Present regular rate and normal rhythm Abdominal Exam Abdominal exam: Present soft; Absent distention, guarding, rebound or rigidity Comment: Appropriate postoperative tenderness is very mild. Incisions are clean, dry, and intact with no significant abdominal skin color changes or other concerns. No rebound or guarding. External exam: Present other (Significant skin breakdown) Extremities Exam Extremities exam: Present normal inspection, full ROM and normal capillary refill; Absent tenderness or edema Back Exam Back exam: Present normal inspection and full ROM; Absent tenderness Neurological Exam Neurological exam: Present alert, oriented X3 and CN II-XII intact; Absent motor sensory deficit Psychiatric Psychiatric exam: Present normal affect and normal mood Skin Skin exam: Present warm and dry Medical Decision Making Medical Records Medical records reviewed: Yes I reviewed the patient's medical records. Screening: Per USPSTF and CDC recommendations, given the prevalence of disease in our region, it is our hospital?s policy to screen for HIV and viral Hepatitis for all patients aged 18 and over and those with ongoing risk factors. Kiet Inquiry Pt receiving controlled substance: No Vital Signs: 03/18/25 16:46 03/18/25 17:00 03/18/25 17:30 Temperature 98.2 F Temperature Source Oral Pulse Rate 78 68 Pulse Rate [Right] 81 Respiratory Rate 17 17 16 Blood Pressure Blood Pressure [Right Arm] 186/79 H Blood Pressure Mean [Right Arm] 114 Blood Pressure Source Blood Pressure Source [Right Arm] Automatic Cuff 02 Sat by Pulse Oximetry 97 Oxygen Delivery Method Room Air 03/18/25 18:00 03/18/25 18:45 03/18/25 18:56 Temperature 98.0 F Temperature Source Oral Pulse Rate 63 79 77 Pulse Rate [Right] Respiratory Rate 16 15 18 Blood Pressure 162/71 H 162/71 H Blood Pressure [Right Arm] Blood Pressure Mean [Right Arm] Blood Pressure Source Automatic Cuff Blood Pressure Source [Right Arm] 02 Sat by Pulse Oximetry 97 Oxygen Delivery Method Room Air Lab Data Lab results reviewed: Yes I reviewed the patient's lab results. Lab Results 03/18/25 16:40: Urine Color Yellow, Urine Appearance Cloudy, Urine pH 6.5, Ur Specific [place] 1.010, Urine Protein 1+ A, Urine Glucose (UA) 3+, Urine Ketones Negative, Urine Blood 1+ A, Urine Nitrate Negative, Urine Bilirubin Negative, Urine Urobilinogen 0.2, Ur Leukocyte Esterase 2+ A, Urine RBC 3-5, Urine WBC 50-100, Ur Squamous Epith Cells 3-5, Urine Bacteria 4+ 03/18/25 16:45: Lactate 1.0 03/18/25 16:59: WBC 13.8 H, RBC 3.14 L, Hgb 9.1 L, Hct 28.4 L, MCV 90.4, MCH 29.0, MCHC 32.0, RDW 16.5, Plt Count 326, MPV 9.2, Neut % (Auto) 83.5 H, Lymph % (Auto) 9.3 L, [place] % (Auto) 4.6, Eos % (Auto) 0.4, Baso % (Auto) 0.2, Neut # (Auto) 11.5 H, Lymph # (Auto) 1.3, [place] # (Auto) 0.6, Eos # (Auto) 0.1, Baso # (Auto) 0.0, Sodium 135 L, Potassium 5.0, Chloride 109 H, Carbon Dioxide 25, Anion Gap 6.0, BUN 21 H, Creatinine 0.70, Estimated GFR 82, Est GFR ( Amer) 99, Glucose 232 H D, Calcium 8.2 L, Total Bilirubin 0.4, AST 23, ALT 13, Alkaline Phosphatase 96, C-Reactive Protein 8.3 H, Total Protein 5.4 L, Albumin 2.7 L, Globulin 2.7, Albumin/Globulin Ratio 1.0 L, Procalcitonin 0.077 03/18/25 17:34: SARS-CoV-2 (PCR) Not detected, Influenza A Untype (PCR) Not detected, Influenza Type B (PCR) Not detected 03/18/25 16:59 03/18/25 16:59 Orders (Tests/Meds): ED MEDICATIONS Discontinued Medications Generic Name Dose Route Start Last Admin Trade Name Freq PRN Reason Stop Dose Admin Ceftriaxone Sodium 2 gm/ 100 mls @ 200 mls/hr 03/18/25 18:02 03/18/25 18:34 Sodium Chloride IV 03/18/25 18:31 200 mls/hr ONCE ONE Administration ORDERS Category Date Time Status CXR --portable [XR chest portable] Stat Exams 03/18/25 16:46 Completed CRP [C-Reactive Protein] Stat Lab 03/18/25 16:59 Completed Complete Blood Count Auto Diff Stat Lab 03/18/25 16:59 Completed Comprehensive Metabolic Panel Stat Lab 03/18/25 16:59 Completed Lactic Acid Stat Lab 03/18/25 16:45 Completed Procalcitonin Stat Lab 03/18/25 16:59 Completed Rapid PCR Covid and Flu A/B Stat Lab 03/18/25 17:34 Completed UA [Urinalysis and Microscopic] Stat Lab 03/18/25 16:40 Completed Blood Culture Stat Micro 03/18/25 16:59 Received Urine Culture Stat Micro 03/18/25 16:40 Received Medical Decision Narrative: In summary, this patient is a 74-year-old female presenting to the Emergency Department for evaluation of high white blood cell count in outpatient clinic. Differential diagnoses considered include but are not limited to postoperative inflammatory response, postoperative infection, pneumonia, urinary tract infection, sepsis. Ruling out the most morbid conditions drove assessment. It should be noted patient's history includes functional quadriplegia, hypertension, hyper lipidemia, renal insufficiency, type 2 diabetes which may or may not be at goal therapy. This complicates all aspects of care by increasing patient's risk for morbidity. I reviewed patient's past medical records and noted uncomplicated cholecystectomy as well as outpatient surgical follow-up today. Also noted outpatient labs obtained with leukocytosis. Her anemia that was noted after cholecystectomy is improving. On exam, the patient is afebrile and nontoxic-appearing with no tachypnea, no tachycardia. Cardiopulmonary exam is reassuring, though she does note a cough. She does have a lot of excoriation and skin breakdown in her groin with new use of depends instead of female urinal. Abdominal exam is benign with appropriate postoperative tenderness, incisions are C/D/I. Workup included CBC, CMP, CRP, lipase, lactic acid, procalcitonin, urinalysis, chest x-ray. I independently interpreted chest x-ray prior to the radiologist read and noted possible right lower lobe consolidation concerning for may be developing pneumonia versus atelectasis. Please see their read for final interpretation. Labs were obtained that demonstrated CBC that shows mild leukocytosis with a white count of 13.8, mild anemia that is actually improved from prior lab evaluation. Chemistry is reassuring with no significant HEATHER or other concerns. Lactic acid is normal, procalcitonin is normal. I am not concerned for sepsis based on reassuring vitals and workup. Urinalysis is concerning for infection with 50-100 white blood cells and 4+ bacteria. At this time, I doubt strep postsurgical infection but feel patient does have UTI and possible developing pneumonia in the postoperative period causing leukocytosis. She states she is feeling fine. She was given IV Rocephin here and was deemed to be appropriate for discharge home with prescription for cefdinir. She was given instructions for close follow-up on an outpatient basis and very strict return precautions. Critical Care Critical Care Time Critical Care Time: No
[2025-03-18 16:53] LABS: Microscopic, Urine URINE MICROSCOPIC (MICROSCOPIC)
[2025-03-18 17:00] VITALS: PULSE 78; RESP 17
[2025-03-18 17:11] LABS: Basophils % 0.2 % (0.1-2.0); Eosinophils # 0.1 Kmm3 (0.0-0.4); Eosinophils % 0.4 % (0.1-12.0); Hematocrit 28.4 % (37.0-47.0); Hemoglobin 9.1 g/dL (12.2-16.2); Immature Granulocytes # 0.27 10^3uL; Lymphocytes # 1.3 K/mm3 (0.7-4.5); Lymphocytes % 9.3 % (10-50); Mean Corpuscular Volume 90.4 fl (81-99); Mean Platelet Volume 9.2 fl (7.4-10.4); Monocytes # 0.6 K/mm3 (0.1-1.0); Monocytes % 4.6 % (1.7-9.3); Neutrophils # 11.5 K/mm3 (1.8-7.8); Neutrophils % 83.5 % (37.0-80.0); Nucleated Red Blood Cells # 0 10^3/uL; Nucleated Red Blood Cells % 0 %; Platelet Count 326 K/mm3 (142-424); Red Blood Count 3.14 M/mm3 (4.20-5.40); Red Cell Distribution Width 16.5 % (11.5-17.5); Red Cell Distribution Width-SD 53.5 fL; White Blood Count 13.8 K/mm3 (4.8-10.8)
[2025-03-18 17:19] LABS: Bilirubin,Urine Negative (Negative); Blood, Urine 1+ (Negative); Color,Urine YELLOW (Yellow); Glucose,Urine (UA) 3+ (Negative); Ketones,Urine Negative (Negative); Leukocyte Esterase,Urine 2+ (Negative); Nitrate,Urine Negative (Negative); PH,Urine 6.5 (5.0-8.5); Protein,Urine 1+ (Negative); Urobilinogen,Urine 0.2 EU/dl (0.2)
[2025-03-18 17:30] VITALS: PULSE 68; RESP 16
[2025-03-18 17:30] LABS: Alanine Aminotransferase 13 U/L (12-78); Albumin Level 2.7 g/dl (3.5-5.0); Alkaline Phosphatase 96 U/L (38-126); Aspartate Amino Transferase 23 U/L (14-36); Bilirubin,Total 0.4 mg/dl (0.2-1.3); Blood Urea Nitrogen 21 mg/dl (7-17); Calcium 8.2 mg/dl (8.4-10.2); Carbon Dioxide 25 mmol/L (22.0-30.0); Chloride 109 mmol/L (98-107); Estimated Glomerular Filt Rate 82 ml/min (>60); GFR (African American) 99 ML/MIN (>60); Globulin 2.7 g/dL (1.3-3.2); Glucose 232 mg/dl (74-100); Sodium 135 mmol/L (136-145); Total Protein,Serum 5.4 g/dl (6.3-8.2)
[2025-03-18 17:32] LABS: Appearance,Urine Cloudy (Clear)
[2025-03-18 17:34] LABS: C-Reactive Protein 8.3 mg/L (0-4)
[2025-03-18 17:40] LABS: Coronavirus 19, PCR Not Detected (NotDetected); Influenza A, PCR Not Detected (NotDetected); Influenza B, PCR Not Detected (NotDetected)
[2025-03-18 17:45] LABS: Procalcitonin 0.077 ng/mL (0.0-2.0)
[2025-03-18 17:51] LABS: Bacteria,Urine 4+ /lpf; WBC,Urine 50-100 #/hpf (0-3)
[2025-03-18 18:00] VITALS: PULSE 63; RESP 16
[2025-03-18] MEDS: CEFTRIAXONE SODIUM 2 GM in 0.9 % SODIUM CHLORIDE 100 ML IV (18:34)
[2025-03-18 18:45] VITALS: BP 162/71; PULSE 79; RESP 15; O2SAT 97
[2025-03-18 18:56] VITALS: BP 162/71; PULSE 77; RESP 18; TEMP 36.7; O2SAT 97
--- NOTE | 2025-03-20 09:05 | PC.NURSE ---
Urine culture results reviewed by Dr. Malhotra. No new orders received.
--- NOTE | 2025-03-21 08:51 | PC.NURSE ---
Urine culture results reviewed by Dr. Herring, no new orders received at this time.
== END 2025-03-18 19:36 | disposition home or self-care (01) ==
PROVIDERS: Emergency Provider Emergency Medicine; PCP Internal Medicine Adolescent Medicine
DX: J18.9 Pneumonia, unspecified organism (principal); N39.0 Urinary tract infection, site not specified; D72.829 Elevated white blood cell count, unspecified
CPT/HCPCS: 71045; 80053; 81001; 83605; 84145; 85025; 86140; 87040; 87086; 87088; 87186; 87636; 96365; 99284; J0696